=== PATIENT | female | born 1985 | race Caucasian/White ===

== ENCOUNTER 2024-12-07 08:40 | Emergency (ER) | payer OTHER, BC, SELFPAY ==
--- OUTSIDE RECORDS SUMMARY | 2024-11-30 08:40 | XMS_ITS | Encounter Summary ---
Author Organization [facility] Address [facility] [place] [address] Care Team Providers Care Sheriffs Detective Name Role Phone Rose Mary Lane COMPUTER SECURITY MANAGER Unavailable [phone] Carolin Roca MD Primary Care Provider [phone] Source Comments In the event this information is protected by the Federal Confidentiality of Alcohol and Drug AbusePatient Records regulations: The Federal rules restrict any use of the information to criminally investigate or prosecute any alcohol or drug abuse patient.[facility] Reason for Visit * Outpatient Procedure (Routine) - ClosedSpecialtyDiagnoses / ProceduresReferred By ContactReferred To [facility] Diagnoses BRCA1 gene mutation positive in female Ovarian cyst, right Preop examination Procedures ECG COMPLETE ECG ROUTINE ECG W/LEAST 12 LDS W/I&R Tracey Hernandez APRN.CODING ANALYST [address] [place] [address] Phone: tel: fax: [facility] [address] [place] [address] Referral IDStatusReasonStart DateExpiration DateVisits RequestedVisits [id number] Auto-Generated Referral [id number] Encounter Details DateTypeDepartmentCare Team (Latest Contact Info)Zyjyjphmktx66/17/2025 8:40 AM EDTPAT Pre Anesthesia [address] [place], [place] [id number] Preop examination (Primary Dx); BRCA1 gene mutation positive in female; Ovarian cyst, right; Mild intermittent asthma without complication (HCC); Gastroesophageal reflux disease, unspecified whether esophagitis present; Obesity, Class I, BMI 30-34.9; PONV (postoperative nausea and vomiting) Social History Tobacco UseTypesPacks/DayYears UsedDateSmoking Tobacco: NeverSmokeless Tobacco: Never Tobacco Cessation:Counseling Given: Not Answered Alcohol UseStandard Drinks/WeekCommentsYes0 (1 standard drink = 0.6 oz pure alcohol)rarePHQ-2AnswerDate RecordedPHQ-2 gurud562rea Deprivation Index AnswerDate RecordedNational Score (1-100), lower number is lower risk76 07/06/2022State Score (1-10), lower number is lower qthn0393Data from: https://www.neighborhoodatlas.[facility]/. Last address used for wawlmjtzjzk[address]07/06/[birth year]22CommentsNoSex and Gender InformationValueDate RecordedSex Assigned at MhugiAgkcoh81/12/2025 12:01 PM EDT Legal StyTbfprd42/19/2015 10:08 AM ESTGender DfnbwknkWtfggg01/12/2025 12:01 PM EDTSexual ExlaoxswczzTmtgmisd37/10/2020 2:09 PM ESTdocumented as of this encounter Last Filed Vital Signs Vital SignReadingTime TakenCommentsBlood Niiljchk011/8211/30/2024 8:33 AM EDT Aoebe520911/30/2024 8:33 AM QPRKaksslwmysl29.6 ??C (97.9 ??F)11/30/2024 8:33 AM EDTRespiratory Rate--Oxygen Mqlqzrdlwp62%11/30/2024 8:33 AM EDTInhaled Oxygen Concentration--Gaquzx84 kg (216 lb 0.8 oz)11/30/2024 8:33 AM ZYPYawlia350.7 cm (5' 6.42 )11/30/2024 8:33 AM EDTBody Mass Index34.431 8:33 AM EDT documented in this encounter Functional Status * Are you deaf or do you have serious difficulty hearing?AnswerDate of KxoopzbeifWndzavRh93/10/2015 10:15 AM Lia Lang RN * Are you blind or do you have serious difficulty seeing, even when wearing glasses?AnswerDate of QmsyenynzcPmqcrkHr80/10/2015 10:15 AM Lia Lang RN * Do you have serious difficulty walking or climbing stairs?AnswerDate of XqenaskqamNfpoizJh86/10/2015 10:15 AM Lia Lang RN * Do you have difficulty dressing or bathing?AnswerDate of AssessmentAuthorNo 11/23/2014 10:15 AM Lia Lang RN * Because of a physical, mental, or emotional condition, do you have difficulty doing errands alone such as visiting a doctor's office or shopping?AnswerDate of LewwhgegqpVeyzzuVk25/10/2015 10:15 AM iLa Lang RN documented as of this encounter Mental Status * Because of a physical, mental, or emotional condition, do you have serious difficulty concentrating, remembering, or making decisions?AnswerEntry Date XoraxnPs73/10/2015 10:15 AM Lia Lang RN documented in this encounter Patient Instructions * Patient Instructions* Liane Neri PA-C - 11/28/2024 9:32 AM EDT [facility] PATIENT PREOPERATIVE INSTRUCTIONS Gina Lala MD has scheduled you for your procedure at this surgery center: [facility]: [phone] --[phone] [place] [address]. Please check in on the1st floor at registration desk 6. Please read below carefully for your personalized instructions. Arrival Time for Surgery: - The Surgery Center or hospital where you are having surgery will call the afternoon before surgery (or Tuesday for Tuesday surgery) with a scheduled arrival time. - If you have not heard by 4 pm, please contact the surgery center above. Please be aware that emergency situations arise, which may delay or change your surgical time. If this happens, we will notify you as soon as possible and regret any inconvenience. Dietary Restrictions: - No solid food after midnight. - You may have 12 ounces of clear liquids (water, clear juices such as apple juice or gatorade, carbonated beverages, clear tea, black coffee, jello) until 2 hours before scheduled arrival at facility. Medications: Unless instructed differently below, stay on all of your medications until your surgery. Approved medications to take the morning of surgery with a sip of water: bupropion (Wellbutrin), omeprazole (Prilosec), sertraline (Zoloft) Use your inhalers as prescribed If you start any new medications after today's visit, please contact the surgeon's office. If you are currently using a vfyq-dkt-bynq injectable or oral medication for diabetes or weight loss such as Dulaglutide (Trulicity), Exenatide (Byetta, Bydureon), Liraglutide (Victoza, Saxenda), Semaglutide (Ozempic, Wegovy, Rybelsus), or Tirzepatide (Mounjaro), the medicine should be stopped at least 7 days before surgery. These medicines can cause food to remain in your stomach for a very longtime and increase the risks from surgery and anesthesia. Not stopping the medication for a long enough time may result in your surgery being rescheduled. Blood Thinning Medications: - Stop NSAIDS (Ibuprofen, Advil, Aleve, Motrin, Celebrex, Mobic, etc.) 7 days before surgery, as directed by your surgeon. - Stop Aspirin 7 days before surgery, as directed by your surgeon. - Stop ALL herbals and dietary supplements 7 days before surgery. - You may take Tylenol (Acetaminophen) or any of your pain medications that do not contain aspirin or NSAIDS as needed. Important Reminders: - Candy, mints, and tobacco products are NOT permitted the morning of surgery. - Hearing aids and glasses may be worn the morning of surgery. - You may wear partials and dentures morning of surgery, but you may be asked to remove them prior to your procedure. - NO jewelry, body piercings, makeup, hairpins or contacts are to be worn the day of surgery. If you develop symptoms such as a fever, cold, or flu, or have other changes to your health within TWO DAYS of scheduled surgery or the morning of surgery, please contact the surgery center above. Personal Belongings: -Please have photo ID and insurance cards. -If you do not have a copy of advance directives on file with us, please bring a copy with you on the day of surgery. - Leave ALL valuables and money at home or with family members. For Outpatient Procedures: - YOU MUST HAVE A RESPONSIBLE JEWEL CUPPING MACHINE OPERATOR TAKE YOU HOME. A WOMEN'S HEALTH CARE NURSE PRACTITIONER OR MOLECULAR GENETICIST CANNOT BE MADE A RESPONSIBLE JEWEL CUPPING MACHINE OPERATOR. - We recommend that a responsible person stays with you overnight to take care of you. - You cannot stay in a hotel alone after outpatient surgery. You will not be permitted to have yoursurgery, if you do not have someone to take care of you. If you already have an Advance Directive, please fax a copy to [phone] or email to for it to be added to your chart. If you do not have an Advance Directive, you can find the appropriate form and more information at [email or web address]. We recommend that youcomplete the Advance Directive form found on the website and bring it with you the day of your surgery. It can be witnessed and scanned into your chart that day. Liane Neri PA-C documented in this encounter H&P Notes * Liane Neri PA-C - 11/30/2024 8:40 AM EDT Images from the original note were not included. [facility] HISTORY AND PHYSICAL EXAMINATION SERVICE DATE: 11/30/2024 SERVICE TIME: 8:38 AM PRIMARY CARE PHYSICIAN: Carolin Roca MD Assessment 1. Preop examination (Z01.818) 2. BRCA1 gene mutation positive in female (Z15.01) 3. Ovarian cyst, right (N83.201) surgery 10/22/25 4. Mild intermittent asthma without complication (HCC) (J45.20) - Mild, intermittent asthma; inhaler used as needed, most recently one month ago. - triggered by allergies and illnesses - No current wheezing, cough, or shortness of breath. - Advised to bring inhaler on day of surgery. 5. Gastroesophageal reflux disease, unspecified whether esophagitis present (K21.9) - GERD managed with omeprazole. 6. Obesity, Class I, BMI 30-34.9 (E66.811) - patient remains physically active with walking and Jazzercise. Estimated body mass index is 34.43 kg/m?? as calculated from the following: Height as of this encounter: 168.7 cm (5' 6.42 ). Weight as of this encounter: 98 kg (216 lb 0.8 oz). ANESTHESIA FINDINGS: Intubation History: No history of difficult intubation Significant Anesthesia Considerations: potential postop nausea/vomiting Airway History: No history of difficult airway Yang Activity Status Index: METS: Walk indoors, such as around the house (1.75 METs) Do light work around the house, such as dusting or washing dishes (2.70 METs) Take care of self; that is eating, dressing, bathing, using the toilet (2.75 METs) Walk a block or two on level ground (2.75 METs) Do moderate work around the house, such as vacuuming, sweeping floors, or carrying in groceries (3.50 METs) Do yardwork, such as raking leaves, weeding, or pushing a power mower (4.50 METs) Climb a flight of stairs or walk up a hill (5.50 METs) Do heavy work around the house, such as scrubbing floors, lifting or moving heavy furniture (8.00 METs) DASI Score: 31.45 (Jazzercise once a week Walking most days ) Patient denies any chest pain or undue shortness of breath with the above physical activity. Clinical Frailty Scale: 2. Well STOP-Bang Score: Denies snoring loudly Denies feeling tired, fatigued, or sleepy during the daytime Has not been observed to stop breathing or choking/gasping during sleep Denies having high blood pressure BMI less than or equal to 35 kg/m^2 Patient 50 years old or younger Does not have a large neck Non-male patient STOP-Bang Score: 0 I - PHYSICAL EVALUATION AIRWAY Patient intubated: No. Tracheostomy tube not present Mallampati: II. TM distance: >3 FB. Neck ROM: full ROM without neurological symptoms. Mouth opening: >3 FB. Short neck: no. Thick neck: no Lip Bite Test: I Microretrognathia/Micronagthia/Recessed Chin: No DENTAL Normal dental observations. Dental findings: teeth intact. II - ANESTHESIA PLAN Informed Consent Prepared for Surgery: optimally prepared for surgery. CONSULTS: Patient does not require consults for optimization at this time. Planned Anesthetic: anesthesia choice The Following Tests/Procedures Have Been Initiated: Orders Placed This Encounter CBC Standing Status: Future Number of Occurrences: 1 Expected Date: 11/30/2024 Expiration Date: 03/01/2025 BMP Standing Status: Future Number of Occurrences: 1 Expected Date: 11/30/2024 Expiration Date: 03/01/2025 polyethylene glycol 3350 (MIRALAX PO) Sig: Take by mouth. REASON FOR VISIT: Andria Dangelo is a 39 year old female who is scheduled for Bilateral - LAPAROSCOPIC HYSTERECTOMY TOTAL FOR UTERUS 250 G OR LESS W/REMOVAL TUBE(S) AND/OR OVARY(S) at the request of Dr. Gina Lala for consultation. My final recommendation will be communicated back to the requesting physician by way of shared medical record or letter. CHIEF COMPLAINT: pelvic pain HPI: Andria is a 39-year-old female with mild intermittent asthma, depression, and anxiety, presenting for pre-anesthesia evaluation prior to prophylactic total hysterectomy. Andria reports a right-sided ovarian cyst present for approximately 6 months, associated with intermittent right-sided pelvic pain that occasionally radiates to her back. She describes the pain as bothersome but not severe. She continues to have regular menses without abnormal bleeding. Patient has been recommended for above surgery. Subjective ACTIVE PROBLEM LIST Family History of Breast Cancer Brca1 Genetic Carrier S/P Bilateral Mastectomy Mild Intermittent Asthma Without Complication (Hcc) Obesity, Class I, Bmi 30-34.9 Gastroesophageal Reflux Disease Covid Immunization Dates Current Care Gaps Covid-19 Vaccine ( season) Overdue since 10/15/2024 01/19/2021 Imm Admin: COVID-19 original vaccine, full dose, monovalent (MODERNA) 03/26/2020 Imm Admin: COVID-19 original vaccine, full dose, monovalent (MODERNA) 02/27/2020 Imm Admin: COVID-19 original vaccine, full dose, monovalent (MODERNA) REVIEW OF SYSTEMS: PAIN ASSESSMENT: GENERAL: No weight loss, malaise, or fevers. HEENT: Negative for frequent or significant headaches; no changes in vision or hearing; no nosebleeds or other nasal problems. NECK: Positive for a thyroid nodule; denies goiter, pain, or significant neck swelling. RESPIRATORY: Negative for cough, dyspnea, or shortness of breath. CARDIOVASCULAR: Negative for chest pain, leg swelling, CHF, or palpitations. GI: Positive for silent reflux; denies nausea, vomiting, diarrhea, heartburn, abdominal pain, bloodin stool, or black stool. GENITOURINARY: Positive for right-sided pelvic pain; denies dysuria, frequency, or incontinence. MUSCULOSKELETAL: Positive for mild, intermittent back pain; denies joint pain or swelling, or muscle pain. SKIN: Negative for lesions, rash, and itching. PSYCH: Negative for anxiety or depression. HEMATOLOGY/LYMPHOLOGY: No bleeding concerns. NEURO: No history of headaches, syncope, paralysis, seizures, or tremors. ENDOCRINE: No history of polydipsia, increased thirst, or other endocrine symptoms. PAST MEDICAL HISTORY Diagnosis Date Asthma (HCC) PFTs proven in September 2014. BRCA1 positive 2013 Breast lump 2015 Bilateral and pain. Raynaud's syndrome PAST SURGICAL HISTORY Procedure Laterality Date BREAST RECONSTRUC W TISS EXPANDR Bilateral 11/22/14 Bilat MASTECTOMY, SIMPLE, COMPLETE Bilateral 11/22/14 Bilat Prophyl NSM & Pauline FAMILY HISTORY Problem Relation Age of Onset Breast Cancer Mother 54 Alive other (Melanoma) Mother 30 Breast Cancer Other 45 Alive; 2nd cousin, maternal Breast Cancer Maternal Aunt 50 ; Great Aunt Ovarian cancer Maternal Aunt 70 ; maternal great aunt Stroke Maternal Grandfather other (TIA) Maternal Grandfather 70 Alive Clotting Disorder Father 60 other (Factor 5) Father 60 Alive Colon Cancer Maternal Grandmother 50 ; Great Grandmother other (Lung Cancer) Maternal Grandmother 77 Breast Cancer Other 57 Alive, 2nd cousin, maternal SOCIAL HISTORY[1] MEDICATIONS: Prior to Admission medications as of 11/30/24 0838 Medication Sig Last Dose Taking polyethylene glycol 3350 (MIRALAX PO) Take by mouth. Yes fluticasone (FLONASE ALLERGY RELIEF) 50 mcg/actuation nasal spray Use 2 sprays in each nostril oncedaily. Yes buPROPion SR (WELLBUTRIN SR) 100 mg 12 hr tablet Take 50 mg by mouth two times a day. Yes montelukast (SINGULAIR) 10 mg tablet Take 10 mg by mouth daily at bedtime. Yes norgestimate-ethinyl estradiol 0.18/0.215/0.25 mg-0.035mg (28) tablet Take 1 tablet by mouth once daily. Yes omeprazole (PRILOSEC) 20 mg capsule Take 20 mg by mouth. Yes sertraline (ZOLOFT) 50 mg tablet Take 50 mg by mouth every morning. Yes ALBUTEROL INHALATION Inhale 1 Puff as instructed as needed. Yes estradiol (VIVELLE-DOT) 0.1 mg/24 hr patch Apply 1 patch as directed two times a week. No medication comments found. CURRENT ALLERGIES: ALLERGIES Allergen Reactions Kiwi Diarrhea, GI Upset, Itching, Swelling, Vomiting Milk GI Upset, Intolerance Objective PHYSICAL EXAM: VITALS: BP 119/82 Pulse 65 Temp (Src) 97.9 (Temporal) Ht 5' 6.417 (1.69m) Wt 216 lb 0.8 oz (98.0kg) SpO2 98% LMP 11/06/2024 BMI 34.43 kg/(m^2). General: Alert and oriented, No acute distress, Obese Skin: Normal color, no rash, no lesions. HEENT: EOM, pupils equal, round and reactive. Cardiovascular: Normal S1 & S2, no rubs, murmurs or gallops. No JVD. Pulse regular. Lungs: Normal breath sounds, no wheezes or crackles. Abdomen: Soft, non-tender, no rigidity., Positive bowel sounds Extremities: No deformity, no edema or tenderness, no joint swelling or clubbing. Neurological: Normal cognition and motor skills. Pulses: Carotid and radial pulses normal +2. Diagnostic tests reviewed for today's visit: Lab Value Units Date High Low HB 12.6 g/dL 11/30/2024 15.5 11.5 HCT 38.1 % 11/30/2024 46.0 36.0 WBC 9.13 k/uL 11/30/2024 11.00 3.70 PLT 307 k/uL 11/30/2024 400 150 NA 136 mmol/L 11/30/2024 144 136 K 4.7 mmol/L 11/30/2024 5.1 3.7 GLUC 96 mg/dL 11/30/2024 99 74 BUN 7 mg/dL 11/30/2024 21 7 CREAT 0.86 mg/dL 11/30/2024 0.96 0.58 PTSEC No results within date range. INR No results within date range. APTT No results within date range. ALT No results within date range. AST No results within date range. TBILI No results within date range. TSH No results within date range. Lab Value Units Date High Low HCGQT No results within date range. UHCG No results within date range. HCG, BODY* No results within date range. Lab Value Units Date High Low ABORHD No results within date range. ABSCREEN No results within date range. No results found for: HBA1C Most recent EK11/30/2024 preliminary Normal sinus rhythm Normal ecg Instructions Given to Patient: Instructions located in the after visit summary. Patient given verbal and written preop instructions and voices comprehension and compliance. Consent Recording using EMK[employer] software for draft documentation of the visit was discussed with the patient/authorized apprenticeship representative; all questions welcomed and answered. Patient/authorized apprenticeship representative agreed to proceed SIGNATURE: Liane Neri PA-C PATIENT NAME: Andria Dangelo DATE: 11/30/2024 TIME: 9:03 AM PAGER/CONTACT #: [1] Social History Tobacco Use Smoking status: Never Smokeless tobacco: Never Substance Use Topics Alcohol use: Yes Comment: rare Drug use: No documented in this encounter Plan of Treatment DateTypeDepartmentCare Team (Latest Contact Info)Wamtiyzxkcf86/07/2025 8:15 AM ESTVisit (SP) Office Gynecology [address] [place] [address] Shelby Crouch L, COMPUTER SECURITY MANAGER.CODING ANALYST [address] [place] [address] POST OP OK'D WITH BG01/15/2025 3:00 PM ESTVisit (SP) Office Gynecology [address] [place] [address] Shelby Crouch, COMPUTER SECURITY MANAGER.CODING ANALYST [address] [place] [address] POST OP01/17/2025 10:30 AM ESTDistance Health Gynecology [address] [address] Parrish Chan MD [address] [place] [address] MENOPAUSE SMA01/18/2025 11:00 AM ESTOffice Visit [facility] [address] [place] [address] Carly Sierra MD [address] [place] [address] annual exam06/03/2025 3:00 PM EDTDisd[facility] End[facility]ology [place] [address] [place] [address] [place] [address] [place] [address] Ongoing learning about symptoms and fwparsscpf41/21/2026 8:30 AM EDTDisdignity health [facility]ce [facility] Gynecology [address] [address] Parrish Chan MD [address] [address] FOLLOW UPdocumented as of this encounter Procedures Procedure NamePriorityDate/TimeAssociated DiagnosisCommentsECG COMPLETERoutine 11/30/2024 8:42 AM EDT BRCA1 gene mutation positive in female Ovarian cyst, right Preop examination documented in this encounter Results * BASIC METABOLIC PANEL (11/30/2024 9:23 AM EDT)ComponentValueRef RangeTest MethodAnalysis TimePerformed AtPathologist IwfvoiowcKegzfgi0697 - 99 mg/dL 11/30/2024 11:15 AM [facility] LABORATORYComment: The [place] Diabetes Association (ADA) provides guidance for cutoff values for fasting glucose andrandom glucose. The ADA defines fasting as no caloric intake for at least 8 hours. Fasting plasma glucose results between 100 to 125 mg/dL indicate increased risk for diabetes (prediabetes). Fasting plasma glucose results greater than or equal to 126 mg/dL meet the criteria for diagnosis of diabetes. In the absence of unequivocal hyperglycemia, results should be confirmed by repeat testing. In a patient with classic symptoms of hyperglycemia or hyperglycemic crisis, random plasma glucose results greater than or equal to 200 mg/dL meet the criteria for diagnosis of diabetes. Reference: Standards of Medical Care in Diabetes 2016, [place] Diabetes Association. Diabetes Care. 2016.39(Suppl 1). BUN77 - 21 mg/dL11/30/2024 11:15 AM [facility] LABORATORYCreatinine0.86 0.58 - 0.96 mg/dL11/30/2024 11:15 AM [facility] ZYIKFWQMAXCriane124757 - 144 mmol/L1 11:15 AM [facility] LABORATORYPotassium4.73.7 - 5.1 mmol/L1 11:15 AM [facility] HWJBJHXRTWSepublqm01967 - 107 mmol/L 11/30/2024 11:15 AM [facility] RKLAFYHIDHPS84415 - 30 mmol/L1 11:15 AM [facility] LABORATORYAnion Ggt900 - 15 mmol/L1 11:15 AM [facility] LABORATORYCalcium, Total9.78.5 - 10.2 mg/dL11/30/2024 11:15 AM [facility] LABORATORYEstimated Glomerular Filtration Rate88>=60 mL/min/1.73m 11/30/2024 11:15 AM [facility] LABORATORYComment:Estimated Glomerular Filtration Rate (eGFR) is calculated using the 2020 CKD-EPI creatinine equation. This equation utilizes serum creatinine, sex, and age as parameters. The creatinine assay has traceable calibration to isotope dilution-mass spectrometry. Refer to KDIGO guidelines for clinical interpretation. In patients with unstable renal function, e.g. those with acute kidney injury, the eGFRmay not accurately reflect actual GFR.Specimen (Source)Anatomical Location / LateralityCollection Method / VolumeCollection TimeReceived TimeBloodBLOOD SPECIMEN / UnknownVenipuncture / Fgujvgf0011/30/2024 9:23 AM EDT1 9:24 AM EDT Narrative Authorizing ProviderResult TypeResult StatusRachel Thomasandra PA-CLABORATORYFinal ResultPerforming OrganizationAddressCity/State/ZIP CodePhone Number [facility] [address] [facility] [place] [place] [address], * COMPLETE BLOOD COUNT (11/30/2024 9:23 AM EDT)ComponentValueRef RangeTest MethodAnalysis TimePerformed AtPathologist SignatureWBC9.133.70 - 11.00 k/uL 11/30/2024 10:00 AM [facility] LABORATORYRBC4.073.90 - 5.20 m/uL 11/30/2024 10:00 AM [facility] QEBZRKWFSNTbpuilzvrr24.611.5 - 15.5 g/dL 11/30/2024 10:00 AM [facility] PJAHIKUGYPRdrtlqbngl00.136.0 - 46.0 % 11/30/2024 10:00 AM [facility] ZYOYJTUKKIPQN28.680.0 - 100.0 fL 11/30/2024 10:00 AM [facility] CQRPQVUQKCBLZ97.026.0 - 34.0 pg11/30/2024 10:00 AM [facility] OPMLJRBHXBKESR95.130.5 - 36.0 g/dL11/30/2024 10:00 AM [facility] LABORATORYRDW-CV13.211.5 - 15.0 %11/30/2024 10:00 AM EDT [facility] LABORATORYPlatelet Rhptz693551 - 400 k/uL11/30/2024 10:00 AM EDT [facility] QVWQSBTCQIXUQ91.69.0 - 12.7 fL11/30/2024 10:00 AM [facility] LABORATORYAbsolute nRBC<0.01<0.01 k/uL11/30/2024 10:00 AM [facility] LABORATORYSpecimen (Source)Anatomical Location / LateralityCollection Method / VolumeCollection TimeReceived TimeBloodBLOOD SPECIMEN / Unknown Venipuncture / Ddvcjdd1711/30/2024 9:23 AM EDT1 9:24 AM EDT Narrative Authorizing ProviderResult TypeResult StatusRachel Halle HOUSER-CLABORATORYFinal ResultPerforming OrganizationAddressCity/State/ZIP CodePhone Number [facility] [address] [facility] [place] [address], [place] * ECG COMPLETE (11/30/2024 8:42 AM EDT)ComponentValueRef RangeTest Method Analysis TimePerformed AtPathologist SignatureVentricular Uqdo22ENVIVRF CARDIOLOGYAtrial Wlix80ACMPLJC CARDIOLOGYP-R Vrczkuvi092uiKTJB CARDIOLOGYQRS Bcprksme25eoZJDH CARDIOLOGYQT Ciosrdgq998pmXARJ CARDIOLOGYQTC Calculation (Bazett)441msAVON CARDIOLOGYCalculated P Jvsv48abuhmpnWOXH CARDIOLOGY Calculated R Aeao67ngrmzshUDLA CARDIOLOGYCalculated T Szmx00pbadtcyWIBP CARDIOLOGYSpecimen (Source)Anatomical Location / LateralityCollection Method / VolumeCollection TimeReceived Time11/30/2024 8:42 AM EDT Impressions [facility] - 12/01/2024 11:31 AM EDT Normal sinus rhythm Normal ECG No previous ECGs available Confirmed by MOOK ESTEVEZ M.D. ([place]) on 12/01/2024 11:31:16 AM Narrative [facility] - 12/01/2024 11:31 AM EDT NAME : ANDRIA DANGELO PID : [id number] : 1985 Gender : Female Race : ORD : [id number] Procedure Date : Nov 30 2024 08:42:10 Edit Date : Dec 01 2024 11:31:18 Diagnosis: Normal sinus rhythm Normal ECG No previous ECGs available Confirmed by MOOK ESTEVEZ M.D. ([place]) on 12/01/2024 11:31:16 AM Test Reason : HCS Location : 301 : PACC ?? Overread By : MOOK ESTEVEZ M.D. Edited By : MOOK ESTEVEZ M.D. Referred By : ALHILLI,GINA Acquired by : wv, Authorizing ProviderResult TypeResult StatusMarjose juan Hernandez APRN.CNPEKGFinal ResultPerforming OrganizationAddressCity/State/ZIP CodePhone Number [facility] [address] [facility] [address], documented in this encounter Visit Diagnoses Diagnosis Preop examination- Primary Preoperative examination, unspecified BRCA1 gene mutation positive in female Ovarian cyst, right Other and unspecified ovarian cyst Mild intermittent asthma without complication (HCC) Unspecified asthma Gastroesophageal reflux disease, unspecified whether esophagitis present Obesity, Class I, BMI 30-34.9 Obesity, unspecified PONV (postoperative nausea and vomiting) Nausea with vomiting documented in this encounter Care Teams Team MemberRelationshipSpecialtyStart DateEnd Date Carolin Roca MD [address] [place] [address] PCP - GeneralFamily Ymbleubx54/9/[address] APRN [address] [place], [place] [id number] ReferringFamily Qgqboxci63/9/24documented as of this encounter
--- OUTSIDE RECORDS SUMMARY | 2024-12-05 08:10 | XMS_ITS | Encounter Summary ---
Author Organization [facility] Address [facility] [place] [address] Care Team Providers Care Security Nurse Name Role Phone Rose Mary Lane Jeffery INTERNET SYSTEMS ADMINISTRATOR Unavailable [phone] Carolin Roca MD Primary Care Provider [phone] Source Comments In the event this information is protected by the Federal Confidentiality of Alcohol and Drug AbusePatient Records regulations: The Federal rules restrict any use of the information to criminally investigate or prosecute any alcohol or drug abuse patient.[facility] Reason for Visit * Auth/Cert (Routine)SpecialtyDiagnoses / ProceduresReferred By ContactReferred To ContactADMITTING Diagnoses BRCA1 gene mutation positive in female Ovarian cyst, right Preop examination BRCA1 gene mutation positive in female [Z15.01, Z15.02, Z15.09] Ovarian cyst, right [N83.201] Preop examination [Z01.818] Procedures LAPS TOTAL HYSTERECT 250 GM/< W/RMVL TUBE/OVARY LAPAROSCOPIC HYSTERECTOMY TOTAL FOR UTERUS 250 G OR LESS W/REMOVAL TUBE(S) AND/OR OVARY(S) Admitting [facility] [place] [address] Referral IDStatusReasonStart DateExpiration DateVisits RequestedVisits [id number] Encounter Details DateTypeDepartmentCare Team (Latest Contact Info)Awgaoncgvkn08/22/2025 8:10 AM EDT - 12/05/2024 5:06 PM EDTHospital Encounter [facility] [address] [place] [address] [place] [address] [place] [address] BRCA1 gene mutation positive in female [Z15.01, Z15.02, Z15.09], Ovarian cyst, right [N83.201], Preop examination [Z01.818] Discharge Disposition: Home Social History Tobacco UseTypesPacks/DayYears UsedDateSmoking Tobacco: NeverSmokeless Tobacco: NeverAlcohol UseStandard Drinks/WeekCommentsYes0 (1 standard drink = 0.6 oz pure alcohol)rarePHQ-2AnswerDate RecordedPHQ-2 [id number] Deprivation IndexAnswerDate RecordedNational Score (1-100), lower number is lower risk76 07/06/2022State Score (1-10), lower number is lower [id number] from: https://www.neighborhoodatlas.[facility].edu/. Last address used for ojibfnrqiqp[address]CommentsNoSex and Gender InformationValueDate RecordedSex Assigned at CevypJfmcjx35/12/2025 12:01 PM EDT Legal RowPsnvxj08/19/2015 10:08 AM ESTGender KsvxwqbsLhwyxa30/12/2025 12:01 PM EDTSexual OjcdendkwcvTuaqwzmh10/10/2020 2:09 PM ESTdocumented as of this encounter Last Filed Vital Signs Vital SignReadingTime TakenCommentsBlood Comlstcx981/8612/05/2024 4:15 PM EDT Ltrqm804912/05/2024 4:15 PM RIOIdpxfrwxlxt62.2 ??C (97.2 ??F)12/05/2024 4:15 PM EDTRespiratory Vcyh8540 4:15 PM EDTOxygen Tzotqcykvz71%12/05/2024 4:15 PM EDTInhaled Oxygen Concentration--Weight--Height--Body Mass Index--documented in this encounter Functional Status * Are you deaf or do you have serious difficulty hearing?AnswerDate of YvmxsurjjjCzgfclNq12/10/2015 10:15 AM Lia Lang RN * Are you blind or do you have serious difficulty seeing, even when wearing glasses?AnswerDate of CfveyqukvrUregpmLj39/10/2015 10:15 AM Lia Lang RN * Do you have serious difficulty walking or climbing stairs?AnswerDate of DplprkapiwPummqtWc62/10/2015 10:15 AM Lia Lang RN * Do you have difficulty dressing or bathing?AnswerDate of AssessmentAuthorNo 11/23/2014 10:15 AM Lia Lang RN * Because of a physical, mental, or emotional condition, do you have difficulty doing errands alone such as visiting a doctor's office or shopping?AnswerDate of YgioveeyakMvopqiYc74/10/2015 10:15 AM Lia Lang RN documented as of this encounter Mental Status * Because of a physical, mental, or emotional condition, do you have serious difficulty concentrating, remembering, or making decisions?AnswerEntry Date GvovpaJl18/10/2015 10:15 AM Lia Lang RN documented in this encounter Discharge Instructions * Discharge Instr - Other Orders* Gina Cisneros MD - 12/05/2024 2:08 PM EDT POSTOP: LAPAROSCOPIC SURGERY WHAT TO EXPECT AT HOME Recovery from surgery is generally 2-6 weeks, but sometimes longer for more strenuous activity. It is normal to be very tired during this time. It is normal to have some drainage or a small amount of vaginal bleeding after surgery which may last up to 6 weeks. You will most likely experience gas pain, abdominal swelling, or shoulder pain for 24-72 hours after surgery. This is from the carbon dioxide gas put into your abdomen to better visualize your organs. A warm shower, heating pad, and/or walking may help. You will have 1-5 small incisions on your abdomen. There will be dissolvable stitches under your skin that do not need to be removed. You will also have surgical glue or steri-strips (paper tape) on the incisions. These may be removed when they start to fall off on their own, or in 7-10 days. ACTIVITY No heavy lifting/pushing/pulling for 4-6 weeks. Do not lift anything more than 10-15 lbs (such as laundry, groceries, children, pets), vacuum, push heavy doors or grocery carts, etc. You may climb stairs as tolerated. Do not put anything in the vagina for 6 weeks after surgery unless otherwise instructed by your doctor (including tampons, douching, sexual intercourse, etc). No driving for about 2-3 weeks after surgery, while you are taking narcotic pain medication, or until you feel that you are ready. Avoid sitting or lying in bed for more than 2 hours at a time while you are awake to reduce your risk of blood clots. Return to work when directed by your surgeon. Please contact your surgeon???s office if any [facility] paperwork is needed. WOUND CARE You will have 1-5 small incisions on your abdomen. If you have a dressing (big, white, square band-aid), please remove it 24 hour after your surgery. You may have surgical glue or steri-strips on theincisions and these may be removed once they start to fall off. Shower daily after surgery. Wash your incision with antibacterial soap (such as Dial). Pat your incision dry with a clean towel. No tub baths until wound is completely healed. Wash your hands frequently, especially before touching your incision, changing any dressings, afterusing the restroom, and before eating. PAIN MANAGEMENT You will be given prescriptions for a variety of pain medications (opioid and non-opioid) before you leave the hospital. Surgery will cause pain and everyone has a different pain tolerance. It is safer to find the right combination and amount of medicine to manage your pain. We recommend that you take the non-opioid medication (acetaminophen and ibuprofen) on a regular schedule after surgery. You can take these medications on an alternating schedule so that you are taking one or the other every 3-4 hours. The maximum total daily dose of acetaminophen is 4,000mg and the maximum totaldaily dose of ibuprofen is 2,400mg. Take the opioid prescription ONLY when your pain is severe and never take more pills or more frequent doses than prescribed. Opioids (narcotics) can cause serious side effects. The risks increase the longer they are used. Taking opioids may cause: constipation, drowsiness, itching, nausea/vomiting. More serious side effects of opioids may include: addiction or dependence, life threatening overdose, or dizziness leading to falls/injury. Keep your pain medication locked in a safe place. Never share your pain medication with others. If you have any remaining opioid pills after you recover from surgery, please bring them to a medication disposal station (located in many of the [facility] pharmacies). Do not flush them down the toilet. Constipation is a common problem after surgery. You should take a stool softener (i.e. colace) twice a day, especially if you are taking opioids. If a stool softener alone is not helping to manage your constipation, you can also take Miralax and/or milk of magnesia as needed. WHEN TO CALL THE DOCTOR Call your doctor if you have any of the following symptoms: Fever (>100.4 F or 38.0 C) or chills. Incision problems such as redness, warmth, swelling, or foul smelling drainage. Severe nausea or persistent vomiting. Bright red vaginal bleeding (soaking >1 pad/hour) or foul smelling vaginal drainage. Severe pain not relieved with pain medication. Pain and swelling in your legs, especially if it is only on one side and not the other. Pain with urination, cloudy urine, or foul smelling urine. Or if you have any other problems or questions. CALL 911 or go to the ED if you have any shortness of breath, difficulty breathing, or chest pain. documented in this encounter Medications at Time of Discharge MedicationSigDispense QuantityRefillsLast FilledStart DateEnd Date oxyCODONE IR (ROXICODONE) 5 mg immediate release tablet Indications:BRCA1 gene mutation positive in femaleTake 1 tablet by mouth every 8 hours as needed for pain for up to 3 days. 9 tablet 12/05/2024 4:02 PM EDT1 polyethylene glycol 3350 (MIRALAX PO) Take by mouth. estradiol (VIVELLE-DOT) 0.1 mg/24 hr patch Apply 1 patch as directed two times a week. 24 patch fluticasone (FLONASE ALLERGY RELIEF) 50 mcg/actuation nasal spray Use 2 sprays in each nostril once daily. buPROPion SR (WELLBUTRIN SR) 100 mg 12 hr tablet Take 50 mg by mouth two times a day. montelukast (SINGULAIR) 10 mg tablet Take 10 mg by mouth daily at bedtime. norgestimate-ethinyl estradiol 0.18/0.215/0.25 mg-0.035mg (28) tablet Indications:Encounter for initial prescription of contraceptive pillsTake 1 tablet by mouth once daily. 84 tablet omeprazole (PRILOSEC) 20 mg capsule Take 20 mg by mouth.11/21/2023 sertraline (ZOLOFT) 50 mg tablet Take 50 mg by mouth every morning. ALBUTEROL INHALATION Inhale 1 Puff as instructed as needed.documented as of this encounter OR Notes * Operative Report - Gina Cisneros MD - 12/05/2024 11:14 AM EDT OPERATIVE/PROCEDURE REPORT LOG ID: [id number] SURGERY/PROCEDURE DATE: 12/05/2024 INCISION/PROCEDURE START TIME: 12:01 PM INCISION CLOSE/PROCEDURE END TIME: 1:45 PM SURGEON(S)/PROCEDURALIST(S) AND COMMUNICATIONS CONSULTANT(S): Surgeons and Role: * Gina Cisneros MD - Primary Nurse Practitioner: Renée Mohr APRN.CHILD CARE CENTRE DIRECTOR Physician Beveling Machine Operator: Isha Martinez PA-C SURGERY/PROCEDURE(S): Laparoscopic assisted hysterectomy Bilateral salpingo-oophorectomy Cystoscopy ANESTHESIA: Choice - Anesthesia Consult SURGERY/PROCEDURE DETAILS: Indication: Patient is a pleasant 39 year old P2 with a known pathogenic variant in BRCA1. She desired risk reducing surgery after completion of childbearing. She understood the risks, benefits and alternatives of the procedure and a greed to proceed. Findings: Normal appearing uterus and ovaries. No peritoneal disease noted Operative details: The patient was taken to the operating room. After induction of general anesthesia, she was preppedand draped in the dorsal lithotomy position and her legs were placed in yellow-fin stirrups. A bob catheter was then placed and a procedural pause was taken. We turned out attention to the abdomen.An supraumbilical incision was made and the subcutaneous tissue was dissected to the level of the fascia. The fascia was incised sharply and the peritoneal cavity entered using the open Damián technique. A 12mm balloon trocar was inserted. A 10mm 0 degree scope was then placed and the peritoneal cavity was inspected. The bowel, omentum, diaphragm and liver were grossly normal in appearance. With the patient in steep trendelenburg. Two 5mm incisions were placed in the left lower quadrant and onein the right lower quadrant and laparoscopic trocars were inserted. Pelvic washings were obtained. The left round ligament was grasped and a peritoneal incision was made cephalad entering the retroperitoneal space. The ureter was identified and retracted laterally. The infundibulopelvic ligament was then ligated using the Ligasure at the pelvic brim. The peritoneum was incised and dissected to the level of the uteroovarian ligament. The uteroovarian ligament was then ligated again using the Ligasure. We turned out attention to the right adnexa and a similar procedure was performed entering the right retroperitoneum, identifying the ureter and ligating the infundibulopelvic vessels and uteroovarian ligament. The specimen was submitted to pathology. The pelvis was irrigated and hemostasis was assured. The 5mm ports were removed. The fascia underlying the umbilicus was then re-approximatedusing 0 vicryl suture. All port sites were injected with 0.5% bupivacaine. The skin was closed using 4-0 Monocryl suture. The patient tolerated the procedure well and was taken to recovery in stable condition. Final sponge, needle and instrument counts were correct x2. PRE-OP/PRE-PROCEDURE DIAGNOSIS: BRCA1 mutation carrier POST-OP/POST-PROCEDURE DIAGNOSIS: Same as Preop ESTIMATED BLOOD LOSS: 30 mls SPECIMENS: ID Type Source Tests Collected by Time Destination A : Wash Pelvic CYTOLOGY NON-PRINCIPAL SOLUTIONS ARCHITECT Gina Cisneros MD 12/05/2024 12:19 PM B : Tissue Uterus, Cervix, Bilateral Fallopian Tubes, and Bilateral Ovaries SURGICAL PATHOLOGY Gina Cisneros MD 12/05/2024 12:58 PM IMPLANTABLE DEVICES: NONE DRAINS: None COMPLICATIONS: None CLOSURE TECHNIQUE: Primary PARTICIPATION IN SURGERY/PROCEDURE: I/primary surgeon/proceduralist performed the procedure with assistance. No qualified resident/fellow was available. I/primary surgeon/proceduralist performed the procedure with assistance. The PA assisted during theentire procedure and closed the skin at the end of the procedure as there was no qualified resident/fellow was available. I was present and scrubbed during the entire procedure until closure of the skin and was immediately available during that time. SIGNATURE: Gina Cisneros MD PATIENT NAME: Laverne Guy DATE: December 05, 2024 TIME: 2:01 PM documented in this encounter Plan of Treatment DateTypeDepartmentCare Team (Latest Contact Info)Glgjsdtkfck83/07/2025 8:15 AM ESTVisit (SP) Office Gynecology [address] [place] [address] Shelby Crouch, INTERNET SYSTEMS ADMINISTRATOR.CHILD CARE CENTRE DIRECTOR [address] [place] [address] POST OP OK'D WITH BG01/15/2025 3:00 PM ESTVisit (SP) Office Gynecology [address] [place] [address] Shelby Crouch, INTERNET SYSTEMS ADMINISTRATOR.CHILD CARE CENTRE DIRECTOR [address] [place] [address] POST OP01/17/2025 10:30 AM ESTDis[facility] [address] [address] Parrish Chan MD [address] [address] MENOPAUSE SMA01/18/2025 11:00 AM ESTOffice Visit [facility] [address] [address] Carly Sierra MD [address] [place] [address] annual exam06/03/2025 3:00 PM EDTDistance Health Endocrinology [place] [id number] [place] [phone] [place] [address] [place] [address] Ongoing learning about symptoms and hoxbdukceg81/21/2026 8:30 AM EDTDistanMaria [facility]ri [facility] [address] [address] Parrish Chan MD [address] [address] FOLLOW UPNameTypePriorityAssociated DiagnosesDate/TimeCYTOLOGY NON-GYNLabRoutine BRCA1 gene mutation positive in female Ovarian cyst, right Preop examination 12/05/2024 12:19 PM EDTSURGICAL PATHOLOGYLabRoutine BRCA1 gene mutation positive in female Ovarian cyst, right Preop examination 12/05/2024 12:58 PM EDTNameTypePriorityAssociated DiagnosesOrder Schedule CYTOLOGY NON-GYNLabRoutine BRCA1 gene mutation positive in female Ovarian cyst, right Preop examination Release Upon Ordering for 1 Occurrences starting 12/05/2024, 1 completedSURGICAL PATHOLOGYLabRoutine BRCA1 gene mutation positive in female Ovarian cyst, right Preop examination Release Upon Ordering for 1 Occurrences starting 12/05/2024, 1 completed documented as of this encounter Procedures Procedure NamePriorityDate/TimeAssociated DiagnosisCommentsLAPS TOTAL HYSTERECT 250 GM/< W/RMVL TUBE/OVARY12/05/2024 10:54 AM EDT BRCA1 gene mutation positive in female Ovarian cyst, right Preop examination CONFIRM BLOOD WUZXTCKD90/22/2025 10:00 AM EDT documented in this encounter Results * CONFIRM BLOOD TYPE (12/05/2024 10:00 AM EDT)ComponentValueRef RangeTest Method Analysis TimePerformed AtPathologist DphgdjpfiZBXG79/22/2025 10:57 AM EDT NATICK BLOOD BANKRh(D)Cmrxkmjw54/22/2025 10:57 AM EDTFUNION [facility] Specimen (Source)Anatomical Location / LateralityCollection Method / Volume Collection TimeReceived TimeBloodBLOOD SPECIMEN / UnknownVenipuncture / Onfngic2112/05/2024 10:00 AM EDT1 10:09 AM EDT Narrative Authorizing ProviderResult TypeResult StatusJohn Jhon SMITH BANKFinal ResultPerforming OrganizationAddressCity/State/ZIP CodePhone Number [facility] [address] [place] [address], documented in this encounter Visit Diagnoses Diagnosis BRCA1 gene mutation positive in female Ovarian cyst, right Other and unspecified ovarian cyst Preop examination Preoperative examination, unspecified documented in this encounter Administered Medications Medication OrderMAR ActionAction DateDoseRateSite fentaNYL 50 mcg/mL 50 mcg injection (SUBLIMAZE) 50 mcg, INTRAVENOUS, EVERY 10 MINUTES NEEDED, 4 doses, Starting on Tue12/05/24 at 1333, Until Tue12/05/24 at 1435, FIRST LINE THERAPY for mild, moderate, or severe pain, USE FOR MILD PAIN ONLY IF PATIENT IS UNABLE TO TOLERATE ORAL THERAPY, Recovery or Phase I (only) Given12/05/2024 2:35 PM EDT50 nvnMyhkj22/22/2025 2:25 PM EDT50 mcgGiven 12/05/2024 2:13 PM EDT50 mcg HYDROmorphone 0.2 mg injection (DILAUDID) 0.2 mg, INTRAVENOUS, EVERY 5 MINUTES NEEDED, 10 doses, Starting on Tue12/05/24 at 1333, Until Tue12/05/24 at 1906, SECOND LINE THERAPY for pain score 1 or greater, USE FOR MILD PAIN (1-3) ONLY IF PATIENT IS UNABLE TO TOLERATE ORAL THERAPY Caution: IV hydromorphone is approximately 8 times MOREPOTENT than IV morphine. For example, hydromorphone 1mg IV = morphine 8mg IV, Recovery or Phase I (only) Given12/05/2024 3:15 PM EDT0.2 jrJdpar5712/05/2024 3:10 PM EDT0.2 mgGiven 12/05/2024 2:55 PM EDT0.2 mg ipratropium-albuterol 3 mL nebulizer solution (DUONEB) 3 mL, INHALATION, NEEDED, 1 dose, Starting on Tue12/05/24 at 1333, Until Tue12/05/24 at 1906, wheezing/shortness of breath, PROTECT FROM LIGHT. The unit- dose vial should remain stored in the protective foil pouch until time of use., Recovery or Phase I (only) lactated ringers iv infusion 5-30 mL/hr, INTRAVENOUS, CONTINUOUS, Starting on Tue12/05/24 at 1000, Until Tue12/05/24 at 1332, Preprocedure New Bag/Syringe/Qittui5412/05/2024 10:03 AM EDT30 mL/hr30 mL/hr lactated ringers iv infusion 5-30 mL/hr, INTRAVENOUS, CONTINUOUS, Starting on Tue12/05/24 at 1400, Until Tue12/05/24 at 1906, Recovery or Phase I (only) Rate Azwlle6412/05/2024 1:54 PM EDT30 mL/hr30 mL/hr ondansetron (PF) 4 mg injection (ZOFRAN) 4 mg, INTRAVENOUS, EVERY 6 HOURS NEEDED, Starting on Tue12/05/24 at 1333, Until Tue12/05/24 [id number], Nausea/Vomiting - First Line - Parenteral, EVERY 6 HOURS NEEDED Give IV push over 2 minutes. Use when patient unable to take medications by mouth., Recovery or Phase I (only) Given12/05/2024 2:01 PM EDT4 mg ondansetron 4 mg tab(s) (ZOFRAN) 4 mg, ORAL, EVERY 6 HOURS NEEDED, Starting on Tue12/05/24 at 1333, Until Tue12/05/24 at 1906, Nausea/Vomiting - First Line - Enteral, EVERY 6 HOURS NEEDED Use when patient able to take medications by mouth., Recovery or Phase I (only) oxyCODONE IR 5 mg tab(s) (ROXICODONE) 5 mg, ORAL, NEEDED, 1 dose, Starting on Tue12/05/24 at 1333, Until Tue12/05/24 at 1450, Moderate Pain (4-6) - Enteral, Recovery or Phase I (only) Given12/05/2024 2:50 PM EDT5 mg prochlorperazine 10 mg injection (COMPAZINE) 10 mg, INTRAVENOUS, EVERY 6 HOURS NEEDED, Starting on Tue12/05/24 at 1333, Until Tue12/05/24 at 1906, Nausea/Vomiting - Second Line - Parenteral, EVERY 6 HOURS NEEDED Protect From Light, Recovery or Phase I (only) documented in this encounter Active and Recently Administered Medications Times are shown in EDT.Medication Order// ceFAZolin iv piggyback 2 g in D5W (iso-osmotic) 100 mL (ANCEF) (COMPLETED) 2 g, INTRAVENOUS, at 200 mL/hr, Administer over 30 Minutes, PRE-OP ONCE, 1 dose, On Tue12/05/24 [id number], Refrigerate, Antimicrobial indication: Prophylaxis, Preprocedure * 1002 (Sent with Patient - Provider: Barbara Licea RN) * 1139 (Given - Provider: Erendira Coffman CRNA) heparin 5,000 Units injection (COMPLETED) 5,000 Units, SUBCUTANEOUS, ONCE, 1 dose, On Tue12/05/24 at 1000, SEND WITH PATIENT TO OR Day of Surgery Pre Op Order, Preprocedure * 1002 (Sent with Patient - Provider: Barbara Licea RN) * 1135 (Given - Provider: Erendira Coffman CRNA) metroNIDAZOLE iv piggyback 500 mg in NaCl (iso-osmotic) 100 mL (FLAGYL) (COMPLETED) 500 mg, INTRAVENOUS, at 200 mL/hr, Administer over 30 Minutes, PRE-OP ONCE, 1 dose, On Tue12/05/24at 1000, Antimicrobial indication: Prophylaxis, Preprocedure * 1002 (Sent with Patient - Provider: Barbara Licea RN) * 1148 (Given - Provider: Erendira Coffman CRNA) Medication Order// lactated ringers iv infusion (CANCELED) 5-30 mL/hr, INTRAVENOUS, CONTINUOUS, Starting on Tue12/05/24 at 1000, Until Tue12/05/24 at 1332, Preprocedure * 1003 (New Bag/Syringe/Bottle - Provider: Barbara Licea RN) * 1332 (Due: Order Ending - Provider: Reg In Adtr - Comment: [Order ends at this time. Document the following action when infusion is complete: Infusion Complete]) lactated ringers iv infusion 5-30 mL/hr, INTRAVENOUS, CONTINUOUS, Starting on Tue12/05/24 at 1400, Until Tue12/05/24 at 1906, Recovery or Phase I (only) * 1354 (Rate Verify - Provider: Marj Hunter RN) * 1906 (Due: Order Ending - Provider: Reg In Adtr - Comment: [Order ends at this time. Document the following action when infusion is complete: Infusion Complete]) Medication Order bupivacaine 0.5 % injection (MARCAINE CHAD) (CANCELED) X (OR/PROCEDURE) PRN, Starting on Tue12/05/24 at 1322, Until Tue12/05/24 at 1354, Intraprocedure * 1322 (Given - Provider: Gina Cisneros MD) fentaNYL 50 mcg/mL 50 mcg injection (SUBLIMAZE) (COMPLETED) 50 mcg, INTRAVENOUS, EVERY 10 MINUTES NEEDED, 4 doses, Starting on Tue12/05/24 at 1333, Until Tue12/05/24 at 1435, FIRST LINE THERAPY for mild, moderate, or severe pain, USE FOR MILD PAIN ONLY IF PATIENT IS UNABLE TO TOLERATE ORAL THERAPY, Recovery or Phase I (only) * 1400 (Given - Provider: Marj Hunter RN) * 1413 (Given - Provider: Marj Hunter RN) * 1425 (Given - Provider: Marj Hunter RN) * 1435 (Given - Provider: Marj Hunter RN) HYDROmorphone 0.2 mg injection (DILAUDID) 0.2 mg, INTRAVENOUS, EVERY 5 MINUTES NEEDED, 10 doses, Starting on Tue12/05/24 at 1333, Until Tue12/05/24 at 1906, SECOND LINE THERAPY for pain score 1 or greater, USE FOR MILD PAIN (1-3) ONLY IF PATIENT IS UNABLE TO TOLERATE ORAL THERAPY Caution: IV hydromorphone is approximately 8 times MOREPOTENT than IV morphine. For example, hydromorphone 1mg IV = morphine 8mg IV, Recovery or Phase I (only) * 1450 (Given - Provider: Marj Hunter RN) * 1455 (Given - Provider: Marj Hunter RN) * 1510 (Given - Provider: Marj Hunter RN) * 1515 (Given - Provider: Marj Hunter RN) ipratropium-albuterol 3 mL nebulizer solution (DUONEB) 3 mL, INHALATION, NEEDED, 1 dose, Starting on Tue12/05/24 at 1333, Until Tue12/05/24 at 1906, wheezing/shortness of breath, PROTECT FROM LIGHT. The unit- dose vial should remain stored in the protective foil pouch until time of use., Recovery or Phase I (only) ondansetron (PF) 4 mg injection (ZOFRAN)(Linked Group 1) 4 mg, INTRAVENOUS, EVERY 6 HOURS NEEDED, Starting on Tue12/05/24 at 1333, Until Tue12/05/24 [id number], Nausea/Vomiting - First Line - Parenteral, EVERY 6 HOURS NEEDED Give IV push over 2 minutes. Use when patient unable to take medications by mouth., Recovery or Phase I (only) * 1401 (Given - Provider: Marj Hunter RN) ondansetron 4 mg tab(s) (ZOFRAN)(Linked Group 1) 4 mg, ORAL, EVERY 6 HOURS NEEDED, Starting on Tue12/05/24 at 1333, Until Tue12/05/24 at 1906, Nausea/Vomiting - First Line - Enteral, EVERY 6 HOURS NEEDED Use when patient able to take medications by mouth., Recovery or Phase I (only) * 1401 (See Alternative - Provider: Marj Hunter RN) oxyCODONE IR 5 mg tab(s) (ROXICODONE) (COMPLETED) 5 mg, ORAL, NEEDED, 1 dose, Starting on Tue12/05/24 at 1333, Until Tue12/05/24 at 1450, Moderate Pain (4-6) - Enteral, Recovery or Phase I (only) * 1450 (Given - Provider: Marj Hunter, CRYSTAL) prochlorperazine 10 mg injection (COMPAZINE) 10 mg, INTRAVENOUS, EVERY 6 HOURS NEEDED, Starting on Tue12/05/24 at 1333, Until Tue12/05/24 at 1906, Nausea/Vomiting - Second Line - Parenteral, EVERY 6 HOURS NEEDED Protect From Light, Recovery or Phase I (only) Order Group 1: ondansetron 4 mg tab(s) (ZOFRAN)Jump to med 4 mg, ORAL, EVERY 6 HOURS NEEDED, Starting on Tue12/05/24 at 1333, Until Tue12/05/24 at 1906, Nausea/Vomiting - First Line - Enteral, EVERY 6 HOURS NEEDED Use when patient able to take medications by mouth., Recovery or Phase I (only) Or ondansetron (PF) 4 mg injection (ZOFRAN)Jump to med 4 mg, INTRAVENOUS, EVERY 6 HOURS NEEDED, Starting on Tue12/05/24 at 1333, Until Tue12/05/24 [id number], Nausea/Vomiting - First Line - Parenteral, EVERY 6 HOURS NEEDED Give IV push over 2 minutes. Use when patient unable to take medications by mouth., Recovery or Phase I (only) documented in this encounter Care Teams Team MemberRelationshipSpecialtyStart DateEnd Date Carolin Roca MD [address] [place] [address] PCP - GeneralFamily Vmdofttl09/9/[address] APRN [address] [place], [place] [id number] ReferringFamily Mehlfkmh24/9/24documented as of this encounter
--- OUTSIDE RECORDS SUMMARY | 2024-12-05 09:50 | XMS_ITS | Encounter Summary ---
Author Organization [facility] Address [facility] [place] [address] Care Team Providers Care Time Lock Expert Name Role Phone Rose Mary Lane Jeffery NUT PROCESS HELPER Unavailable [phone] Carolin Roca MD Primary Care Provider [phone] Source Comments In the event this information is protected by the Federal Confidentiality of Alcohol and Drug AbusePatient Records regulations: The Federal rules restrict any use of the information to criminally investigate or prosecute any alcohol or drug abuse patient.[facility] Reason for Visit * Auth/Cert (Routine)SpecialtyDiagnoses / ProceduresReferred By ContactReferred To ContactADMITTING Diagnoses BRCA1 gene mutation positive in female Ovarian cyst, right Preop examination BRCA1 gene mutation positive in female [Z15.01, Z15.02, Z15.09] Ovarian cyst, right [N83.201] Preop examination [Z01.818] Procedures LAPS TOTAL HYSTERECT 250 GM/< W/RMVL TUBE/OVARY LAPAROSCOPIC HYSTERECTOMY TOTAL FOR UTERUS 250 G OR LESS W/REMOVAL TUBE(S) AND/OR OVARY(S) Admitting [facility] [place] [address] Referral IDStatusReasonStart DateExpiration DateVisits RequestedVisits [id number] Encounter Details DateTypeDepartmentCare Team (Latest Contact Info)Lzdwhkndgng16/22/2025 9:50 AM EDT - 12/05/2024 1:30 PM EDTSurgery [facility] [address] [place] [address] [place] [address] [place] [address] LAPAROSCOPIC HYSTERECTOMY TOTAL FOR UTERUS 250 G OR LESS W/REMOVAL TUBE(S) AND/OR OVARY(S) Surgery Details Date/TimeStatusLocationORServicePatient ClassCase ClassCase TypeTrauma Case? 12/05/2024 9:50 AMPostedFV OROR 02Obstetrics/GynecologyAmbulatory Surgery ElectivePanel 1 ProcedureLRBAnesOp RegionWound ClassCommentsLAPAROSCOPIC HYSTERECTOMY TOTAL FOR UTERUS 250 G OR LESS W/REMOVAL TUBE(S) AND/OR OVARY(S) BilateralGeneralPelvisClean Contaminated Bilateral salpingo-oophorectomy, cysto SurgeonSurgeon RoleServicePanelAlGina thurman, JESUSrimaryObstetrics/Gynecology1 documented in this encounter Social History Tobacco UseTypesPacks/DayYears UsedDateSmoking Tobacco: NeverSmokeless Tobacco: NeverAlcohol UseStandard Drinks/WeekCommentsYes0 (1 standard drink = 0.6 oz pure alcohol)rarePHQ-2AnswerDate RecordedPHQ-2 syvvi674rea Deprivation IndexAnswerDate RecordedNational Score (1-100), lower number is lower risk76 07/06/2022State Score (1-10), lower number is lower vibl0863Data from: https://www.neighborhoodatlas.medicine.[facility].edu/. Last address used for nwvouomvulg[address]07/06/2022CommentsNoSex and Gender InformationValueDate RecordedSex Assigned at DiswiYbsmbl87/12/2025 12:01 PM EDT Legal JjsSnfjaz22/19/2015 10:08 AM ESTGender CneyduxoQywjvm45/12/2025 12:01 PM EDTSexual KoujdmrnvcdWwswoggw84/10/2020 2:09 PM ESTdocumented as of this encounter Last Filed Vital Signs Vital SignReadingTime TakenCommentsBlood Psrtpbqv880/6912/05/2024 9:48 AM EDT Mbzsu034812/05/2024 9:48 AM WTYLjkwnqmyxxu48.8 ??C (98.2 ??F)12/05/2024 9:48 AM EDTRespiratory Bmgv6242 9:48 AM EDTOxygen Vrwrygzped679%12/05/2024 9:48 AM EDTInhaled Oxygen Concentration--Weight--Height--Body Mass Index--documented in this encounter Functional Status * Are you deaf or do you have serious difficulty hearing?AnswerDate of VbeqxouyhvKrsxgmTs68/10/2015 10:15 AM Lia Lang RN * Are you blind or do you have serious difficulty seeing, even when wearing glasses?AnswerDate of RgufhnkitrFjqzrfPe10/10/2015 10:15 AM Lia Lang RN * Do you have serious difficulty walking or climbing stairs?AnswerDate of CinxohdrmiOnlqnpKk89/10/2015 10:15 AM Lia Lang RN * Do you have difficulty dressing or bathing?AnswerDate of AssessmentAuthorNo 11/23/2014 10:15 AM Lia Lang RN * Because of a physical, mental, or emotional condition, do you have difficulty doing errands alone such as visiting a doctor's office or shopping?AnswerDate of FkzpkmtleyWlwdahTe00/10/2015 10:15 AM Lia Lang RN documented as of this encounter Mental Status * Because of a physical, mental, or emotional condition, do you have serious difficulty concentrating, remembering, or making decisions?AnswerEntry Date TszjtvGh57/10/2015 10:15 AM Lia Lang RN documented in [...] Please contact your surgeon???s office if any [facility] paperwork is needed. WOUND CARE You [...] disposal station (located in many of the [facility] pharmacies). Do not flush them down [...] 3 days. 9 tablet 12/05/2024 4:02 PM EDT1/ polyethylene glycol 3350 (MIRALAX PO) Take by [...] 11:14 AM EDT OPERATIVE/PROCEDURE REPORT LOG ID: [id number] SURGERY/PROCEDURE DATE: 12/05/2024 INCISION/PROCEDURE START TIME: 12:01 PM INCISION CLOSE/PROCEDURE END TIME: 1:45 PM SURGEON(S)/PROCEDURALIST(S) AND TIPPLE BOSS(S): Surgeons and Role: * Gina Cisneros MD - Primary Nurse Practitioner: Renée Mohr APRN.ELECTRIC RANGE ASSEMBLER Physician Triage Licensed Practical Nurse: Isha Martinez PA-C SURGERY/PROCEDURE(S): Laparoscopic assisted hysterectomy [...] Time Destination A : Wash Pelvic CYTOLOGY NON-MASTER TAX ADVISOR Gina Cisneros MD 12/05/2024 12:19 PM B [...] Plan of Treatment DateTypeDepartmentCare Team (Latest Contact Info)Hqexhovofpx76/07/2025 8:15 AM ESTVisit (SP) Office Gynecology [address] [place] [address] Shelby Crouch, NUT PROCESS HELPER.ELECTRIC RANGE ASSEMBLER [address] [place] [address] POST OP OK'D WITH BG01/15/2025 3:00 PM ESTVisit (SP) Office Gynecology [address] [place] [address] Shelby Crouch, NUT PROCESS HELPER.ELECTRIC RANGE ASSEMBLER [address] [place] [address] POST OP01/17/2025 10:30 AM [facility] [address] [address] Parrish Chan MD [address] [place] [id number] MENOPAUSE SMA01/18/2025 11:00 AM ESTOffice Visit [facility] [address] [address] Carly Sierra MD [address] [place] [address] annual exam06/03/2025 3:00 PM EDTDisU.[facility]. [facility] [place] [address] [place] [id number] [place] [address] [place] [address] Ongoing learning about symptoms and mnvlettoyq37/21/2026 8:30 [facility] [address] [address] Parrish Chan MD [address] [address] FOLLOW UPNameTypePriorityAssociated DiagnosesDate/TimeCYTOLOGY NON-GYNLabRoutine BRCA1 gene mutation [...] Ovarian cyst, right Preop examination CONFIRM BLOOD AWZHRFTF46/22/2025 10:00 AM EDT documented in this encounter Results * CONFIRM BLOOD TYPE (12/05/2024 10:00 AM EDT)ComponentValueRef RangeTest Method Analysis TimePerformed AtPathologist MudqqxnlnZKXA82/22/2025 10:57 AM EDT [facility](D)Gyssbrxx95/22/2025 10:57 AM EDTFBR[facility] Specimen (Source)Anatomical Location / LateralityCollection Method / Volume Collection TimeReceived TimeBloodBLOOD SPECIMEN / UnknownVenipuncture / Tsvnrfm0912/05/2024 10:00 AM EDT1 10:09 AM EDT Narrative Authorizing ProviderResult TypeResult StatusJohn Jhon DOBLOOD BANKFinal ResultPerforming OrganizationAddressCity/State/ZIP CodePhone Number [facility] [address] [place] [address], documented in this encounter Visit Diagnoses Diagnosis BRCA1 gene mutation positive in female Ovarian cyst, right Other and unspecified ovarian cyst Preop examination Preoperative examination, unspecified BRCA1 gene mutation positive in female Ovarian cyst, right Other and unspecified ovarian cyst Preop examination Preoperative examination, unspecified documented in this encounter Administered Medications Medication OrderMAR ActionAction DateDoseRateSite bupivacaine 0.5 % injection (MARCAINE MDV) X (OR/PROCEDURE) PRN, Starting on Tue12/05/24 at 1322, Until Tue12/05/24 at 1354, Intraprocedure Given12/05/2024 1:22 PM EDT30 mLAbdominal Tissue fentaNYL 50 mcg/mL 50 mcg injection (SUBLIMAZE) 50 mcg, INTRAVENOUS, EVERY 10 MINUTES NEEDED, 4 doses, Starting on Tue12/05/24 at 1333, Until Tue12/05/24 at 1435, FIRST LINE THERAPY for mild, moderate, or severe pain, USE FOR MILD PAIN ONLY IF PATIENT IS UNABLE TO TOLERATE ORAL THERAPY, Recovery or Phase I (only) Given12/05/2024 2:35 PM EDT50 gdtWmtfe31/22/2025 2:25 PM EDT50 mcgGiven 12/05/2024 2:13 PM [...] Phase I (only) Given12/05/2024 3:15 PM EDT0.2 hmRffmh0312/05/2024 3:10 PM EDT0.2 mgGiven 12/05/2024 2:55 PM [...] 1000, Until Tue12/05/24 at 1332, Preprocedure New Bag/Syringe/Eyzmfs4612/05/2024 10:03 AM EDT30 mL/hr30 mL/hr lactated ringers iv infusion 5-30 mL/hr, INTRAVENOUS, CONTINUOUS, Starting on Tue12/05/24 at 1400, Until Tue12/05/24 at 1906, Recovery or Phase I (only) Rate Vymhqv3412/05/2024 1:54 PM EDT30 mL/hr30 mL/hr ondansetron (PF) 4 mg injection (ZOFRAN) 4 mg, INTRAVENOUS, EVERY 6 HOURS NEEDED, Starting on Tue12/05/24 at 1333, Until Tue12/05/24 vw1039, Nausea/Vomiting - First Line - Parenteral, EVERY [...] Administered Medications Times are shown in EDT.Medication Order ceFAZolin iv piggyback 2 g in D5W (iso-osmotic) 100 mL (ANCEF) (COMPLETED) 2 g, INTRAVENOUS, at 200 mL/hr, Administer over 30 Minutes, PRE-OP ONCE, 1 dose, On Tue12/05/24 [id number], Refrigerate, Antimicrobial indication: Prophylaxis, Preprocedure * 1002 [...] when infusion is complete: Infusion Complete]) Medication Order/ bupivacaine 0.5 % injection (MARCAINE CHAD) (CANCELED) [...] Starting on Tue12/05/24 at 1333, Until Tue12/05/24 [id number], Nausea/Vomiting - First Line - Parenteral, EVERY [...] 1450 (Given - Provider: Marj Hunter RN) prochlorperazine 10 mg injection (COMPAZINE) 10 mg, [...] Starting on Tue12/05/24 at 1333, Until Tue12/05/24 op1982, Nausea/Vomiting - First Line - Parenteral, EVERY 6 HOURS NEEDED Give IV push over 2 minutes. Use when patient unable to take medications by mouth., Recovery or Phase I (only) documented in this encounter Care Teams Team MemberRelationshipSpecialtyStart DateEnd Date Carolin Roca MD [address] [place] [address] PCP - GeneralFamily Xygnzlon01/9/[address] APRN [address] [place] [address] ReferringFamily Sekfepvl67/9/24documented as of this encounter
--- OUTSIDE RECORDS SUMMARY | 2024-12-05 11:14 | XMS_ITS | Encounter Summary ---
Author Organization [facility] Address [facility] [place] [address] Care Team Providers Care Chief Of Safety And Protection Name Role Phone Rose Mary Lane Jeffery VAN CDL DRIVER Unavailable [phone] Carolin Roca MD Primary Care Provider [phone] Source Comments In the event this information is protected by the Federal Confidentiality of Alcohol and Drug AbusePatient Records regulations: The Federal rules restrict any use of the information to criminally investigate or prosecute any alcohol or drug abuse patient.[facility] Reason for Visit * Auth/Cert (Routine)SpecialtyDiagnoses / ProceduresReferred By ContactReferred To ContactADMITTING Diagnoses BRCA1 gene mutation positive in female Ovarian cyst, right Preop examination BRCA1 gene mutation positive in female [Z15.01, Z15.02, Z15.09] Ovarian cyst, right [N83.201] Preop examination [Z01.818] Procedures LAPS TOTAL HYSTERECT 250 GM/< W/RMVL TUBE/OVARY LAPAROSCOPIC HYSTERECTOMY TOTAL FOR UTERUS 250 G OR LESS W/REMOVAL TUBE(S) AND/OR OVARY(S) Admitting [facility] [place] [address] Referral IDStatusReasonStart DateExpiration DateVisits RequestedVisits [id number] Encounter Details DateTypeDepartmentCare Team (Latest Contact Info)Cvmawaqebtm86/22/2025 11:14 AM EDTAnesthesia Event [facility] Operating Room [address] [place] [address] [place] [address] [address] [place] [address] MeghnaErendira CRNA [address] [place], [place] [id number] Anesthesia Record Procedure NameResponsible AnesthesiologistAnesthesia Start TimeAnesthesia Stop TimeLAPAROSCOPIC HYSTERECTOMY TOTAL FOR UTERUS 250 G OR LESS W/REMOVAL TUBE(S) AND/OR OVARY(S) (Bilateral: Pelvis)Charlie Ferreira DO12/05/24 [id number] JyepElucUtultYackozs18/22/30466926Lq StartI have re-evaluated the patient immediately prior to induction.1114An Start Sfnb8673St InductionI have re- evaluated the patient immediately prior to induction.1129An Gscwddwzbz9828 Anesthesia Bhhxo2879Uhzwcqgu/Procedure Hjayv4235Ooxm Handoff Spmsa9690Cnsy Handoff Nosal7756Xnzin Goycxsf8311Ifwbx infiltration by wiinndp8042Mqrlvn7498 Procedure Oia4649Es ExtubationPatient : Airway suctioned clear; following commands with adequate responsiveness; strength and spontaneous ventilation confirmed; stable hvqexpfybbuz1280wj stop iuhq5894Wawzyyc to RNI completed my handoff to the receiving nurse during which we: 1. Identified the patient 2. Identified the responsible provider 3. Reviewed the pertinent medical history 4. Discussed the surgical course 5. Reviewed intra-op anesthesia management and issues during anesthesia 6. Set expectations for post-procedure period 7. Allowed opportunity for questions and acknowledgement of understanding.1357An Stop* NameTotaldexamethasone 4 mg/mL4 mgfentaNYL 0.05 mg/mL100 mcglidocaine (PF) 2%100 mgmidazolam 1 mg/mL2 mgondansetron 4 mg/2 mL4 mgpropofol infusion 10 mg/mL839,050 mcgrocuronium 10 mg/mL100 mgsugammadex fsmgwoqpo686 mgheparin 5,000 Units injection5,000 UnitsceFAZolin iv piggyback 2 g in D5W (iso- osmotic) 100 mL (ANCEF)2 gmetroNIDAZOLE iv piggyback 500 mg in NaCl (iso- osmotic) 100 mL (FLAGYL)500 mgfluorescein 10%25 rwXH176 cJBA732 mL * Agents Name ETO2 ETN2O Inspired N2O Set O2% Set Fresh Gas Flow Inspired Sevoflurane O2 Flow Rate Air Sevoflurane * Blood No blood administrations on file. MtkeGrpjanqHavrcvjftOosomolEsgmd39/22/25; 1201; Surgical; Laparoscopic; Laparoscopy Sites-Abdomen; 4 port sites to abdomen with suture and glue12/05/24 1201 by Charo Rothman, WMOlrfb82/22/25; [facility] (PA inserted bob); Bob; 12/05/24; [id number] by Gina Lala MD 12/05/24 1322 by Margy Grant, RNPIV12/05/24; 0957; [facility]; Left; Antecubital; 20 Gauge; 12/05/24; 1624; Meets Criteria for Rwljprj57/22/25 0957 by Barbara Licea RN12/05/24 1624 by Itzel Rabago, RNAirwayEndotracheal Tube; 12/05/24; 1129 (created via procedure documentation); 7 mm; Cuffed; No; 12/05/24; [id number] 1129 by Charlie Ferreira, DO12/05/24 1349 by Erendira Coffman, REEDOME32/22/25; 1135 (created via procedure documentation); Right; Hand; 18 Gauge; 12/05/24; [id number] 1135 by Charlie Ferreira, DO12/05/24 1639 by Itzel Rabago, CARRIEIV12/05/24; 1145 (created via procedure documentation); Left; Hand; 18 Gauge; 12/05/24; 1623; Meets Criteria for Iqfnldn71/22/25 1145 by Charlie Ferreira, DO12/05/24 1623 by Itzel Rabago, RNdocumented in this encounter Social History Tobacco UseTypesPacks/DayYears UsedDateSmoking Tobacco: NeverSmokeless Tobacco: NeverAlcohol UseStandard Drinks/WeekCommentsYes0 (1 standard drink = 0.6 oz pure alcohol)rarePHQ-2AnswerDate RecordedPHQ-2 kmfuw175rea Deprivation IndexAnswerDate RecordedNational Score (1-100), lower number is lower risk76 07/06/2022State Score (1-10), lower number is lower yecw89507/06/2022ata from: https://www.neighborhoodatlas.medicine.[facility]/. Last address used for zuvyknubfbj[address]07/06/2022CommentsNoSex and Gender InformationValueDate RecordedSex Assigned at MzxdzSvljwn96/12/2025 12:01 PM EDT Legal KtfPxypyc17/19/2015 10:08 AM ESTGender EualwjqoEectjx73/12/2025 12:01 PM EDTSexual IeqjdtohsvtMektmhgt74/10/2020 2:09 PM ESTdocumented as of this encounter Last Filed Vital Signs Vital SignReadingTime TakenCommentsBlood Ihgomoxy398/8312/05/2024 1:48 PM EDT Fcbwf294812/05/2024 1:50 PM EDTTemperature--Respiratory Rate--Oxygen Saturation 100%12/05/2024 1:50 PM EDTInhaled Oxygen Concentration--Weight--Height--Body Mass Index--documented in this encounter Functional Status * Are you deaf or do you have serious difficulty hearing?AnswerDate of QupzvjjufgSqvgrvBo11/10/2015 10:15 AM Lia aLng RN * Are you blind or do you have serious difficulty seeing, even when wearing glasses?AnswerDate of JnnqnvmoksJhacptRj55/10/2015 10:15 AM Lia Lang RN * Do you have serious difficulty walking or climbing stairs?AnswerDate of LiydpkbhncVgkydjDk40/10/2015 10:15 AM Lia Lang RN * Do you have difficulty dressing or bathing?AnswerDate of AssessmentAuthorNo 11/23/2014 10:15 AM Lia Lang RN * Because of a physical, mental, or emotional condition, do you have difficulty doing errands alone such as visiting a doctor's office or shopping?AnswerDate of IiuzlckiufNgjxpwYh75/10/2015 10:15 AM Lia Lang RN documented as of this encounter Mental Status * Because of a physical, mental, or emotional condition, do you have serious difficulty concentrating, remembering, or making decisions?AnswerEntry Date XauziwDq77/10/2015 10:15 AM Lia Lang RN documented in this encounter Procedure Notes * Erendira Coffman CRNA - 12/05/2024 12:46 PM EDTAssociated Order(s): Airway ANESTHESIOLOGY PROCEDURE NOTE Airway General Information Procedure Start Time/Medication Administration: 12/05/2024 11:29 AM Procedure End Time: 12/05/2024 11:29 AM Patient location during procedure: OR Timeout Performed Pre-procedure: timeout performed Consent Obtained: Yes Patient identity confirmed: arm band, care cafeteria team leader and patient Staffing Anesthesiologist: Charlie Ferreira DO SDV PILOT/NAVIGATOR/DDS OPERATOR: Erendira Coffman CRNA Performed by: BIN Indications and Patient Condition Indications for airway management: anesthesia Preoxygenated: yes anesthesia circuit Patient position: sniffing Method: asleep Cricoid Pressure: No Manual In-Line Stabilization: No Difficult Mask: No Final Airway Details Final airway type: endotracheal airwayFinal Endotracheal Airway: ETT Cuffed: yes Successful intubation technique: video laryngoscopy Devices used: Barnes Endotracheal tube insertion site: oral Blade: Anika Blade size: #3 ETT size (mm): 7.0 Measured from: lips Measurement (cm): 21 Placement verified by: capnometry Cormack-Lehane Classification: grade I - full view of glottis Number of attempts at approach: 1 Failed airway: no Unrecognized esophageal intubation: no Airway not difficult SIGNATURE: Erendira Coffman CRNA PATIENT NAME: Laverne Guy DATE: December 05, 2024 TIME: 12:46 PM CSN: [id number] * Erendira Coffman CRNA - 12/05/2024 12:34 PM EDTAssociated Order(s): PIV ANESTHESIOLOGY PROCEDURE NOTE PIV General Information Procedure Start Time/Medication Administration: 12/05/2024 11:35 AM Procedure End Time: 12/05/2024 11:35 AM Patient Location: OR Staffing SDV PILOT/NAVIGATOR/DDS OPERATOR: Erendira Coffman CRNA Performed by: BIN Preparation Sterility Preparation: hand hygiene performed prior to procedure, surgical cap used, mask used Site Prep: chlorhexidine Procedure Details Indication: need for IV access Needle Size/Type: 18 gauge angiocath Orientation: Right Location: Hand Imaging Guidance Used: No SIGNATURE: Erendira Coffman CRNA PATIENT NAME: Laverne Gil Amor DATE: December 05, 2024 TIME: 12:34 PM CSN: [id number] * Erendira Coffman CRNA - 12/05/2024 12:33 PM EDTAssociated Order(s): PIV ANESTHESIOLOGY PROCEDURE NOTE PIV General Information Procedure Start Time/Medication Administration: 12/05/2024 11:45 AM Procedure End Time: 12/05/2024 11:45 AM Patient Location: OR Staffing SDV PILOT/NAVIGATOR/DDS OPERATOR: Erendira Coffman CRNA Performed by: SDV PILOT/NAVIGATOR/DDS OPERATOR Preparation Sterility Preparation: hand hygiene performed prior to procedure, surgical cap used, mask used Site Prep: chlorhexidine Procedure Details Indication: need for IV access Needle Size/Type: 18 gauge angiocath Orientation: Left Location: Hand Imaging Guidance Used: No SIGNATURE: Erendira Coffman CRNA PATIENT NAME: Laverne Guy DATE: December 05, 2024 TIME: 12:33 PM CSN: [id number] * Charlie Ferreira DO - 12/05/2024 10:57 AM EDT ANESTHESIOLOGY DAY OF SURGERY NOTE : 1985 Procedure Information Date/Time: 12/05/24 0950 Procedure: LAPAROSCOPIC HYSTERECTOMY TOTAL FOR UTERUS 250 G OR LESS W/REMOVAL TUBE(S) AND/OR OVARY(S) (Bilateral: Pelvis) - bso Location: [facility] OR02 / [facility] Surgeons: Gina Lala MD Estimated body mass index is 34.43 kg/m?? as calculated from the following: Height as of 11/30/24: 168.7 cm (5' 6.42 ). Weight as of 11/30/24: 98 kg (216 lb 0.8 oz). Hemoglobin (g/dL) Date Value 11/30/2024 12.6 01/02/2019 12.7 Hematocrit (%) Date Value 11/30/2024 38.1 01/02/2019 39.5 WBC (k/uL) Date Value 11/30/2024 9.13 01/02/2019 8.16 Platelet Count (k/uL) Date Value 11/30/2024 307 01/02/2019 254 CMP: Glucose 96 11/30/2024 BUN 7 11/30/2024 Creatinine 0.86 11/30/2024 Sodium 136 11/30/2024 Potassium 4.7 11/30/2024 Chloride 101 11/30/2024 CO2 24 11/30/2024 Protein, Total 7.4 01/02/2019 Albumin 4.6 01/02/2019 Calcium 9.7 11/30/2024 Alkaline Phosphatase 43 01/02/2019 Bilirubin, Total 0.7 01/02/2019 AST 23 01/02/2019 ALT 14 01/02/2019 Relevant Problems ANESTHESIA (+) PONV (postoperative nausea and vomiting) GI (+) Gastroesophageal reflux disease PULMONARY (+) Mild intermittent asthma without complication (HCC) Other (+) Obesity, Class I, BMI 30-34.9 I - PHYSICAL EVALUATION AIRWAY Patient intubated: No. Tracheostomy tube not present Mallampati: III. TM distance: >3 FB. Neck ROM: full ROM without neurological symptoms. Mouth openin FB. Short neck: no. Thick neck: no DENTAL Dental findings: teeth intact. II - ANESTHESIA PLAN ASA Score: 2 Anesthetic Plan: general Airway type: ETT The patient is not a current smoker. NPO Status: adequate Monitoring Plan Monitoring plan: standard ASA. Post Procedure Analgesic Plan Postoperative analgesic plan: parenteral or oral opioids and multimodal analgesia. Informed Consent Anesthetic risks, benefits, alternatives, personnel and consent discussed: yes. Patient / Responsible Green Party agrees to proceed: yes Patient / Surrogate agrees to blood products: Yes DNR status not reviewed with patient and/or family prior to surgery. Significant changes in the patient condition since the History and Physical, not otherwise documented in primary service progress note: no. Potential Anesthesia issues that may suggest increased risk of complications or contraindication toplanned procedure: none. Vitals Value Taken Time BP 136/69 12/05/24 09:48 Pulse 79 12/05/24 09:48 Resp 16 12/05/24 09:48 Temp 36.8 ??C (98.2 ??F) 12/05/24 09:48 SpO2 100 % 12/05/24 09:48 Facility-Administered Medications as of 12/05/2024 Medication Dose Route Frequency dextrose 10% iv bolus 12.5 g INTRAVENOUS PRN Or glucagon 0.5-1 mg injection 0.5-1 mg INTRAMUSCULAR PRN lidocaine (PF) 10 mg/mL (1 %) 1-2 mg injection (XYLOCAINE) 0.1-0.2 mL INTRADERMAL PRN lactated ringers iv infusion 5-30 mL/hr INTRAVENOUS CONTINUOUS NaCl 0.9% iv flush bag 20 mL INTRAVENOUS PRN heparin 5,000 Units injection 5,000 Units SUBCUTANEOUS ONCE ceFAZolin iv piggyback 2 g in D5W (iso-osmotic) 100 mL (ANCEF) 2 g INTRAVENOUS Pre-Op Once metroNIDAZOLE iv piggyback 500 mg in NaCl (iso-osmotic) 100 mL (FLAGYL) 500 mg INTRAVENOUS Pre-Op Once Outpatient Medications as of 12/05/2024 Medication Sig omeprazole (PRILOSEC) 20 mg capsule Take 20 mg by mouth. sertraline (ZOLOFT) 50 mg tablet Take 50 mg by mouth every morning. norgestimate-ethinyl estradiol 0.18/0.215/0.25 mg-0.035mg (28) tablet Take 1 tablet by mouth once daily. ALBUTEROL INHALATION Inhale 1 Puff as instructed as needed. I have interviewed and examined the patient. I have reviewed the medical record and/or the pre-anesthesia evaluation, pertinent labs, and test results. This contains updated information obtained within 48 hours of Surgery/Procedure. SIGNATURE: Charlie Ferreira DO PATIENT NAME: Laverne Guy DATE: December 05, 2024 TIME: 10:57 AM CSN: [id number] documented in this encounter Plan of Treatment DateTypeDepartmentCare Team (Latest Contact Info)Rsrhcpgfcyo17/07/2025 8:15 AM ESTVisit (SP) Office Gynecology [address] [place] [address] Shelby Crouch, VAN CDL DRIVER.VOLUNTEER SERVICES SPECIALIST [address] [place] [address] POST OP OK'D WITH BG01/15/2025 3:00 PM ESTVisit (SP) Office Gynecology [address] [place] [address] Shelby Crouch, VAN CDL DRIVER.VOLUNTEER SERVICES SPECIALIST [address] [place] [address] POST OP01/17/2025 10:30 AM ESTDistance Health [facility] [address] [address] Parrish Chan MD [address] [place] [address] MENOPAUSE SMA01/18/2025 11:00 AM ESTOffice Visit [facility] [address] [phone] Carly Sierra MD [address] [place] [address] annual exam06/03/2025 3:00 PM EDTDistance Health Endocrinology [place] [id number] [place] [phone] [place]la Amaya MD [id number] [place] [phone] Ongoing learning about symptoms and cjnhanuxsh77/21/2026 8:30 AM EDTDistance Health Gynecology [address] [address] Parrish Chan MD [address] [address] FOLLOW UPdocumented as of this encounter Procedures Procedure NamePriorityDate/TimeAssociated DiagnosisCommentsPERIPHERAL IV APABAPYZYGwpniap04/22/2025 11:45 AM EDT PERIPHERAL IV ZQJZXVGJYPpvjrev89/22/2025 11:35 AM EDT ZJUOOXPUYDWvbnloc19/22/2025 11:29 AM EDT documented in this encounter Results * PERIPHERAL IV PLACEMENT (12/05/2024 11:45 AM EDT) Erendira Rose CRNA - 12/05/2024 11:45 AM EDT Erendira Coffman CRNA 12/05/2024 12:34 PM PIV General Information Procedure Start Time/Medication Administration: 12/05/2024 11:45 AM Procedure End Time: 12/05/2024 11:45 AM Patient Location: ??OR Staffing SDV PILOT/NAVIGATOR/DDS OPERATOR: Erendira Coffman CRNA Performed by: SDV PILOT/NAVIGATOR/DDS OPERATOR Preparation Sterility Preparation: hand hygiene performed prior to procedure, surgical cap used, mask used ?? Site Prep: chlorhexidine Procedure Details Indication: need for IV access Needle Size/Type: 18 gauge angiocath Orientation: ??Left Location: ??Hand Imaging Guidance Used: ??No Authorizing ProviderResult TypeResult StatusCharlie Ferreira DOANESTHESIA ORDERABLES Final Result * PERIPHERAL IV PLACEMENT (12/05/2024 11:35 AM EDT) Erendira Rose CRNA - 12/05/2024 11:35 AM EDT Erendira Coffman CRNA 12/05/2024 12:35 PM PIV General Information Procedure Start Time/Medication Administration: 12/05/2024 11:35 AM Procedure End Time: 12/05/2024 11:35 AM Patient Location: ??OR Staffing SDV PILOT/NAVIGATOR/DDS OPERATOR: Erendira Coffman CRNA Performed by: SDV PILOT/NAVIGATOR/DDS OPERATOR Preparation Sterility Preparation: hand hygiene performed prior to procedure, surgical cap used, mask used ?? Site Prep: chlorhexidine Procedure Details Indication: need for IV access Needle Size/Type: 18 gauge angiocath Orientation: ??Right Location: ??Hand Imaging Guidance Used: ??No Authorizing ProviderResult TypeResult StatusCharlie Ferreira DOANESTHESIA ORDERABLES Final Result * Airway (12/05/2024 11:29 AM EDT) Erendira Rose CRNA - 12/05/2024 11:29 AM EDT Erendira Coffman CRNA 12/05/2024 12:47 PM Airway General Information Procedure Start Time/Medication Administration: 12/05/2024 11:29 AM Procedure End Time: 12/05/2024 11:29 AM Patient location during procedure: OR Timeout Performed Pre-procedure: timeout performed Consent Obtained: Yes Patient identity confirmed: arm band, care cafeteria team leader and patient Staffing Anesthesiologist: Charlie Ferreira DO SDV PILOT/NAVIGATOR/DDS OPERATOR: Erendira Coffman CRNA Performed by: SDV PILOT/NAVIGATOR/DDS OPERATOR Indications and Patient Condition Indications for airway management: anesthesia Preoxygenated: yes ? anesthesia circuit Patient position: sniffing Method: asleep Cricoid Pressure: No Manual In-Line Stabilization: No Difficult Mask: No Final Airway Details Final airway type: endotracheal airwayFinal Endotracheal Airway: ETT Cuffed: yes Successful intubation technique: video laryngoscopy Devices used: Barnes Endotracheal tube insertion site: oral Blade: Anika Blade size: #3 ETT size (mm): 7.0 Measured from: lips Measurement (cm): 21 Placement verified by: capnometry Cormack-Lehane Classification: grade I - full view of glottis Number of attempts at approach: 1 Failed airway: no Unrecognized esophageal intubation: no Airway not difficult Authorizing ProviderResult TypeResult StatusJohn Jhon DOANESTHESIA ORDERABLES Final Result documented in this encounter Visit Diagnoses Not on filedocumented in this encounter Administered Medications Medication OrderMAR ActionAction DateDoseRateSite ceFAZolin iv piggyback 2 g in D5W (iso-osmotic) 100 mL (ANCEF) 2 g, INTRAVENOUS, at 200 mL/hr, Administer over 30 Minutes, PRE-OP ONCE, 1 dose, On Tue12/05/24 ih1536, Refrigerate, Antimicrobial indication: Prophylaxis, Preprocedure Given12/05/2024 11:39 AM EDT2 g dexAMETHasone sodium phosphate injection (DECADRON) INTRAVENOUS, NEEDED, Starting on Tue12/05/24 at 1127, Until Tue12/05/24 at 1709, Anesthesia Intraprocedure Given12/05/2024 11:27 AM EDT4 mg fentaNYL 50 mcg/mL injection (SUBLIMAZE) INTRAVENOUS, NEEDED, Starting on Tue12/05/24 at 1200, Until Tue12/05/24 at 1709, Anesthesia Intraprocedure Given12/05/2024 12:19 PM EDT25 jgsDtyef76/22/2025 12:00 PM EDT25 mcgGiven 12/05/2024 11:26 AM EDT50 mcg fluorescein injection INTRAVENOUS, NEEDED, Starting on Tue12/05/24 at 1336, Until Tue12/05/24 at 1709, Anesthesia Intraprocedure Given12/05/2024 1:36 PM EDT25 mg heparin 5,000 Units injection 5,000 Units, SUBCUTANEOUS, ONCE, 1 dose, On Tue12/05/24 at 1000, SEND WITH PATIENT TO OR Day of Surgery Pre Op Order, Preprocedure Given12/05/2024 11:35 AM EDT5,000 Units lactated ringers iv infusion INTRAVENOUS, X (ONE-STEP ONLY) CONTINUOUS PRN, Starting on Tue12/05/24 at 1114, Until Tue12/05/24at 1709, Anesthesia Intraprocedure New Bag/Syringe/Zamjlg3812/05/2024 11:14 AM EDT lactated ringers iv infusion INTRAVENOUS, X (ONE-STEP ONLY) CONTINUOUS PRN, Starting on Tue12/05/24 at 1145, Until Tue12/05/24at 1709, Anesthesia Intraprocedure New Bag/Syringe/Wxfdbo1912/05/2024 11:45 AM EDT lidocaine (PF) 20 mg/mL (2 %) injection (XYLOCAINE) INTRAVENOUS, NEEDED, Starting on Tue12/05/24 at 1126, Until Tue12/05/24 at 1709, Anesthesia Intraprocedure Given12/05/2024 11:26 AM GCT499 mg metroNIDAZOLE iv piggyback 500 mg in NaCl (iso-osmotic) 100 mL (FLAGYL) 500 mg, INTRAVENOUS, at 200 mL/hr, Administer over 30 Minutes, PRE-OP ONCE, 1 dose, On Tue12/05/24at 1000, Antimicrobial indication: Prophylaxis, Preprocedure Given12/05/2024 11:48 AM DZE130 mg midazolam (PF) injection (VERSED) INTRAVENOUS, NEEDED, Starting on Tue12/05/24 at 1113, Until Tue12/05/24 at 1709, Anesthesia Intraprocedure Given12/05/2024 11:13 AM EDT2 mg ondansetron (PF) injection (ZOFRAN) INTRAVENOUS, NEEDED, Starting on Tue12/05/24 at 1316, Until Tue12/05/24 at 1709, Anesthesia Intraprocedure Given12/05/2024 1:16 PM EDT4 mg propofol infusion (DIPRIVAN) INTRAVENOUS, X (ONE-STEP ONLY) CONTINUOUS PRN, Starting on Tue12/05/24 at 1157, Until Tue12/05/24at 1709, Anesthesia Intraprocedure Rate/Dose Safgut3312/05/2024 1:23 PM HXB728 mcg/kg/min58.8 mL/hrRate/Dose Change 12/05/2024 1:16 PM MVM084 mcg/kg/min73.5 mL/hrNew Bag/Syringe/Xmaupl3212/05/2024 11:57 AM EDT50 mcg/kg/min29.4 mL/hr rocuronium injection INTRAVENOUS, NEEDED, Starting on Tue12/05/24 at 1149, Until Tue12/05/24 at 1709, Anesthesia Intraprocedure Given12/05/2024 12:16 PM EDT10 gtNaffh9612/05/2024 11:49 AM EDT20 mgGiven 12/05/2024 11:27 AM EDT70 mg sugammadex injection (BRIDION) INTRAVENOUS, NEEDED, Starting on Tue12/05/24 at 1342, Until Tue12/05/24 at 1709, Anesthesia Intraprocedure Given12/05/2024 1:42 PM WMY153 mgdocumented in this encounter Care Teams Team MemberRelationshipSpecialtyStart DateEnd Date Carolin Roca MD [address] [place] [address] PCP - GeneralFamily Xeyejawa42/9/[address] APRN [address] [place], [place] [phone] ReferringFamily Hiueqmfb27/9/24documented as of this encounter
[2024-12-07] VITALS (71 sets, daily range): BP systolic 120–148; BP diastolic 62–98; PULSE 68–110; TEMP 36.4; O2SAT 91–100; BMI 34.9
--- NOTE | 2024-12-07 08:58 | CT_ITS ---
The [address] [address] Patient Name: ADNRIA DANGELO MRN: [id number] date: 1985 Sex: F Assigned Patient Location: ER Current Patient Location: Accession/Order Number: [id number] Exam Date: 12/07/2024 10:00 Report Date: 12/07/2024 10:53 At the request of: KATE CHANCE DO Procedure: CT abdomen pelvis w con CT ABDOMEN AND PELVIS WITH CONTRAST COMPARISON: None CLINICAL DATA: Lower abdominal pain, nausea and difficulty urinating since yesterday. Laparoscopic total hysterectomy 2 days ago. Elevated creatinine. Spiral images were obtained through the abdomen and pelvis following 100 ML of Visipaque 270. This CT exam was performed using one or more following dose reduction techniques: Automated exposure control, adjustment of the mA and/or kV according to patient size, or use of iterative reconstruction technique. Limited cuts through the lung bases show bilateral breast prostheses. There is a trace amount of pleural fluid bilaterally and lower lobe atelectasis. The heart is borderline prominent. There are multiple scattered hepatic hypodensities. The largest is posteriorly on the right measuring 5 cm in size. A couple areas suggests potential peripheral nodular enhancement. The differential includes cysts and hemangiomas. A small amount of focal fat is also suspected near the fossa of the ligamentum teres. No calcified gallstones are noted. The spleen, pancreas and adrenal glands are no acute findings. There are symmetric renal nephrograms, without hydronephrosis. A small 3-4 mm stone is visualized at the upper pole of the right kidney. The abdominal aorta is normal caliber. No enlarged lymph nodes are seen. There is a small amount of perihepatic and perisplenic fluid. This extends into the paracolic gutter on the left. There is a tiny umbilical hernia containing fat. No free air is noted. There is subcutaneous edema at the lateral abdomen on both sides. There is also low density intramuscular fluid within the lower chest and right lateral abdominal wall extending all the way down to the suprapubic region anteriorly. There are no significant hyperdense components or hematocrit level. The bony structures are intact. Images through the pelvis show stool within the cecum and rectosigmoid colon. There is air within the remainder of the sigmoid colon. No diverticular disease is noted. The small bowel loops are not dilated. There is a small amount of free pelvic fluid. The uterus is surgically absent. There is no large pelvic hematoma or suspected abscess. The urinary bladder contains air which is probably introduced iatrogenically. CT/CT abdomen pelvis w con IMPRESSION: BIBASILAR PLEURAL-PARENCHYMAL CHANGES. HEPATIC CYSTS AND/OR HEMANGIOMAS. RIGHT NEPHROLITHIASIS. NO BOWEL OR URINARY TRACT OBSTRUCTION. MILD ABDOMINAL AND PELVIC FREE FLUID. POSTOPERATIVE CHANGES OF HYSTERECTOMY, WITHOUT PROMINENT HEMATOMA OR SUSPECTED ABSCESS. FLUID COLLECTION WITHIN THE RIGHT LOWER CHEST, ABDOMINAL AND PELVIC WALL, PRESUMED TO RELATE TO SURGERY, DESCRIBED. Impression dictated by: Connie Song M.D. 12/07/2024 10:53 AM Dictation Location: [place] [address] Electronically authenticated by: [id number] Y Date: 12/07/2024 10:53
[2024-12-07] MEDS: 0.9 % SODIUM CHLORIDE 1,000 ML 1000 ML IV (09:11)
[2024-12-07] MEDS: HYDROMORPHONE HCL 1 MG/ML CARTRIDGE IV ×3 (09:12→16:50)
--- NOTE | 2024-12-07 09:16 | ED_ITS ---
HPI HPI - General Adult General Chief complaint: Abdominal Pain Stated complaint: ABDOMINAL PAIN Time Seen by Provider: 12/07/24 08:46 Source: patient Mode of arrival: ambulance Limitations: no limitations History of Present Illness HPI narrative: Patient is a 39-year-old female presenting to the emergency department for evaluation of lower abdominal pain. Patient is POD #2 from an elective laparoscopic hysterectomy at the [facility] (prophylactic as she has the BRCA mutation). Patient states that yesterday at 2 PM she went to urinate and experienced sudden onset lower abdominal pain. She tried taking oxycodone at home, however this has not helped her pain. In addition to the lower abdominal pain, she has been nauseous. She has had no vomiting, constipation, or diarrhea . No chest pain or shortness of breath. No fevers or chills. She is otherwise healthy with only history of asthma. Related Data Home Medications ?Medication ?Instructions ?Recorded ?Confirmed albuterol sulfate 90 mcg/actuation 1 puff inhalation Q 8H PRN 12/07/24 12/07/24 aerosol inhaler shortness of breath or wheez ing bupropion HCl 150 mg 24 hr tablet, 150 mg PO BID 12/0712/07/24 extended release estradiol 0.1 mg/24 hr semiweekly 1 patch topical .juan daniel ry other week 12/07/24 12/07/24 transdermal patch fluticasone propionate 50 2 spray intranasal Q12H PRN 12/07/24 12/07/24 mcg/actuation nasal allergy symptoms spray,suspension montelukast 10 mg tablet 10 mg PO DAILY 12/07/2411/15 omeprazole 20 mg capsule,delayed 20 mg PO DAILY 12/07/24 release oxycodone 5 mg tablet 5 mg PO Q8H PRN pain 5 12/07/24 sertraline 50 mg tablet 50 mg PO Q24H 12/07/2412/07 Allergies Allergy/AdvReac Type Severity Reaction Status Date / Time No Known Drug Allergies Allergy Verified 12/07/24 08:46 Opioid HPI Opioid Management Most Recent Opioid Data: Last Pain Scale 8 Today, 12:54 Last APR Pain Assessment Today, 12:54 Review of Systems ROS Status of ROS 10 or more systems reviewed and unremark able except as noted in history and below [facility] Medical History (Updated 12/07/24 @ 14:17 by Shane Acharya DO) Depression ?F32.A - Depression, unspecified (ICD-10) Surgical History (Updated 12/07/24 @ 14:17 by Shane Acharya DO) H/O bilateral mastectomy ?Z90.13 - Acquired absence of bilateral breasts and nipples (ICD-10) H/O: hysterectomy ?Z90.710 - Acquired absence of both cervix and uterus (ICD-10) Social History (Updated 12/07/24 @ 11:47 by Kym Encarnacion RN) Within the past year, how often did you have a drink containing alcohol: never Score interpretation: A score less than 3 is consistent with normal alcohol consumption. Smoking status: Never smoker Non-prescribed substance use: denies use Little interest or pleasure in doing things: not at all Feeling down, depressed, or hopeless: not at all Exam Narrative Exam Narrative: CONSTITUTIONAL: Patient appears generally unwell, answering questions and following commands appropriately, mentating appropriately SKIN: Warm and mildly diaphoretic. EYES: Sclera white. EARS, NOSE, THROAT: Moist oral mucosa. RESPIRATORY: Clear to auscultation bilaterally, no wheezes, crackles, or stridor, no use of accessory muscles CARDIOVASCULAR: Normal rate and regular rhythm. There is no S3, S4, murmur, rub. GASTROINTESTINAL: The abdomen is diffusely tender to palpation, mostly in the suprapubic region. There is positive rebound tenderness. The surgical incision sites appear clean, dry, intact without obvious signs of infection or purulent drainage. MUSCULOSKELETAL: No peripheral edema NEUROLOGIC: Patient is awake and alert. Facies were symmetrical. Constitutional Vital Signs, click to edit/add: Last Vital Signs Temp 97.5 F L 12/07/24 08:46 Pulse 68 12/07/24 13:57 Resp 16 12/07/24 13:57 BP 129/69 12/07/24 13:30 Pulse Ox 95 12/07/24 13:57 O2 Del Method Room Air 12/07/24 13:57 Course Vital Signs Vital signs: Vital Signs Temperature 97.5 F L 12/07/24 08:46 Pulse Rate 76 12/07/24 08:46 Respiratory Rate 22 H 12/07/24 08:46 Blood Pressure 148/98 H 12/07/24 08:46 Pulse Oximetry 97 10/24/25 08:46 Oxygen Delivery Method Room Air 12/07/24 08:46 Temperature 97.5 F L 12/07/24 08:46 Pulse Rate 68 12/07/24 13:57 Respiratory Rate 16 12/07/24 13:57 Blood Pressure 129/69 12/07/24 13:30 Pulse Oximetry 95 12/07/24 13:57 Oxygen Delivery Method Room Air 12/07/24 13:57 Medical Decision Making MDM Narrative Medical decision making narrative: Patient is a 39-year-old female, POD #2 from an elective laparoscopic hysterectomy at the [facility], presenting to the emergency department for evaluation of lower abdominal pain beginning yesterday. Her vital signs on arrival were significant for mild hypertension and tachypnea, otherwise within normal limits. She is afebrile and hemodynamically stable. On examination, she appears generally unwell and mildly diaphoretic. She has diffuse tenderness to palpation about the abdomen, worse in the suprapubic region with positive rebound. Differential diagnosis includes complications from her HILLARY including, but not limited to, ureteral injury, urinary retention, bladder injury, bowel perforation, intra-abdominal abscess/hematoma, or other intra-abdominal pathologies. IV was established and laboratory studies were obtained. CT abdomen/pelvis IV contrast was ordered. She is given 1 L bolus normal saline, IV Zofran, and IV Dilaudid for pain control. Nursing staff was able to obtain ~785cc of dark urine via straight catheterization. Cabrera catheter was placed. Laboratory studies were significant for leukocytosis of 16. Her creatinine is elevated to 3.14 with a normal BUN. This may be related to intrinsic pa thologies or postobstructive uropathy as she was retaining urine. Though she does have a significant ARON, I do believe the benefits of obtaining the CT with contrast is immediately necessary to prevent/rule out potential life-threatening decompensation or delay in emergent treatment. Risk of further renal injury is mitigated with IV fluids. Otherwise, lipase nonelevated. No transaminitis or hyperbilirubinemia. No electrolyte derangements. Urinalysis was positive for blood and proteinuria, no evidence of infection. CT abdomen/pelvis independently reviewed and interpreted by myself and radiology demonstrated postoperative changes of hysterectomy without prominent hematoma or suspected abscess. There is a fluid collection within the right lower chest, abdominal, and pelvic wall - presumed to be related to surgery. Right nephrolithiasis. No bowel or urinary tract obstruction. On reevaluation 2 hours after decompressing her bladder, she is still complaining of pain. An additional 1 mg of IV Dilaudid was given. 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 Given the patient's acute renal failure and persistent postoperative abdominal pain, I do believe she warrants transfer to [facility] where she had her surgery 2 days ago. I did discuss the patient with her dramatic agent, Dr. Gina Cisneros and her DIRECTOR POST, who accepted the transfer. FINAL IMPRESSION: #Acute renal failure #Acute postoperative abdominal pain s/p recent laparoscopic hysterectomy #Acute urinary retention DISPOSITION: Transferred to [facility] CONDITION: Fair Medical Records Medical records reviewed: Yes I reviewed the patient's medical records Lab Data Lab results reviewed: Yes I reviewed the patient's lab results Labs: Lab Results 12/07/24 12/07/24 Range/Units 09:07 09:32 WBC 16.0 H (4.0-11.0) 10^3/uL RBC 4.11 L (4.20-5.40) 10^6/uL Hgb 12.5 (12.0-16.0) g/dL Hct 37.9 (36.0-48.0) % MCV 92.2 (81.0-99.0) fL MCH 30.4 (26.7-34.0) pg MCHC 33.0 (29.9-35.2) g/dL RDW 13.4 (11.0-15.0) % Plt Count 295 (150-450) 10^3/uL MPV 10.6 (9.5-13.5) fL Neut % (Auto) 78.7 H (43.0-75.0) % Lymph % (Auto) 14.8 L (20.5-60.0) % [place] % (Auto) 5.4 (1.7-12.0) % Eos % (Auto) 0.5 L (0.9-7.0) % Baso % (Auto) 0.3 (0.2-2.0) % Neut # (Auto) 12.6 H (1.4-6.5) 10^3/uL Lymph # (Auto) 2.4 (1.2-3.8) 10^3/uL [place] # (Auto) 0.9 H (0.3-0.8) 10^3/uL Eos # (Auto) 0.1 (0.0-0.7) 10^3/uL Baso # (Auto) 0.1 (0.0-0.1) 10^3/uL Abs Immat Gran (auto) 0.05 H (0.00-0.03) 10^3/uL Imm/Tot Granulo (auto) 0.3 (0.0-0.5) % Sodium 140 (136-145) mmol/L Potassium 3.7 (3.5-5.1) mmol/L Chloride 105 (98-107) mmol/L Carbon Dioxide 22.4 (21.0-32.0) mmol/L Anion Gap 16.3 BUN 14.0 (7.0-18.0) mg/dL Creatinine 3.14 H (0.55-1.02) mg/dL Est GFR ( Amer) 20 L (>=60 mL/min/1.73m^2) Est GFR (Non-Af Amer) 16 L (>=60 mL/min/1.73m^2) BUN/Creatinine Ratio 4.5 Glucose 101 (74-106) mg/dL Lactate 0.8 (0.4-2.0) mmol/L Calcium 8.7 (8.5-10.1) mg/dL Total Bilirubin 0.7 (0.2-1.0) mg/dL AST 15 (15-37) U/L ALT 14 (14-59) U/L Alkaline Phosphatase 49 (46-116) U/L Total Protein 6.7 (6.4-8.2) g/dL Albumin 2.9 L (3.4-5.0) g/dL Globulin 3.8 g/dL Albumin/Globulin Ratio 0.8 Lipase 18.0 (16.0-77.0) U/L Urine Color Dk yellow (YELLOW) Urine Clarity Slightly cloudy A (CLEAR) Urine pH 7.0 (5.0-9.0) Ur Specific [place] 1.020 (1.005-1.025) Urine Protein >=300 A (NEG/TRACE) mg/dL Urine Glucose (UA) 100 A (NEGATIVE) mg/dL Urine Ketones Negative (NEGATIVE) mg/dL Urine Occult Blood Large A (NEGATIVE) Urine Nitrite Negative (NEGATIVE) Urine Bilirubin Negative (NEGATIVE) Urine Urobilinogen 0.2 (0.2-1.0) EU/dL Ur Leukocyte Esterase Trace A (NEGATIVE) Urine RBC 50-75 A (0-2) #/HPF Urine WBC 20-50 A (NONE SEEN) #/HPF Ur Squamous Epith Cells Rare (NONE/RARE) #/LPF Urine Crystals None seen (None Seen) #/HPF Urine Bacteria Trace A (NONE SEEN) #/HPF Urine Casts None seen (NONE SEEN) #/LPF Urine Mucus None seen (NONE SEEN) Ur Culture Indicated? [place] [place] Data CT scan - abdomen: Attestation: I personally reviewed and interpreted this imaging study as follows: Radiologist's impression: ITS Impressions Abdomen/Pelvis CT 12/07/24 08:58 IMPRESSION: BIBASILAR PLEURAL-PARENCHYMAL CHANGES. HEPATIC CYSTS AND/OR HEMANGIOMAS. RIGHT NEPHROLITHIASIS. NO BOWEL OR URINARY TRACT OBSTRUCTION. MILD ABDOMINAL AND PELVIC FREE FLUID. POSTOPERATIVE CHANGES OF HYSTERECTOMY, WITHOUT PROMINENT HEMATOMA OR SUSPECTED ABSCESS. FLUID COLLECTION WITHIN THE RIGHT LOWER CHEST, ABDOMINAL AND PELVIC WALL, PRESUMED TO RELATE TO SURGERY, DESCRIBED. Impression dictated by: Connie Song M.D. 12/07/2024 10:53 AM Dictation Location: [place] [address] Electronically authenticated by: [id number] Y Date: 12/07/2024 10:53 Discharge Plan Discharge Chief Complaint: Abdominal Pain Clinical Impression: Abdominal pain, Renal failure, History of hysterectomy, Acute urinary retention Patient Disposition: [facility] Time of Disposition Decision: 13:30 Discharge location: [facility] Condition: Fair Mode of Transportation: EMS
[2024-12-07 09:17] LABS: Hematocrit 37.9 % (36.0-48.0); Hemoglobin 12.5 g/dL (12.0-16.0); Immature Granulocytes Abs Auto 0.05 10^3/uL (0.00-0.03); Immature Granulocytes Pct Auto 0.3 % (0.0-0.5); Lymphocytes Absolute Auto 2.4 10^3/uL (1.2-3.8); Mean Corpuscular HGB Conc 33.0 g/dL (29.9-35.2); Mean Corpuscular Hemoglobin 30.4 pg (26.7-34.0); Mean Corpuscular Volume 92.2 fL (81.0-99.0); Platelet Count 295 10^3/uL (150-450); Red Blood Count 4.11 10^6/uL (4.20-5.40); White Blood Count 16.0 10^3/uL (4.0-11.0)
[2024-12-07 09:29] LABS: Alanine Aminotransferase 14 U/L (14-59); Albumin Globulin Ratio 0.8; Albumin Level 2.9 g/dL (3.4-5.0); Alkaline Phosphatase 49 U/L (46-116); Anion Gap 16.3; Aspartate Amino Transferase 15 U/L (15-37); Blood Urea Nitrogen 14.0 mg/dL (7.0-18.0); Calcium 8.7 mg/dL (8.5-10.1); Carbon Dioxide 22.4 mmol/L (21.0-32.0); Chloride 105 mmol/L (98-107); Estimated GFR (African America 20 (>=60 mL/min/1.73m^2); Estimated GFR (Non-African Ame 16 (>=60 mL/min/1.73m^2); Globulin 3.8 g/dL; Glucose 101 mg/dL (74-106); Lipase 18.0 U/L (16.0-77.0); Potassium 3.7 mmol/L (3.5-5.1); Sodium 140 mmol/L (136-145); Total Protein 6.7 g/dL (6.4-8.2)
[2024-12-07 09:36] LABS: Lactate/Lactic Acid 0.8 mmol/L (0.4-2.0)
[2024-12-07] MEDS: HYDROMORPHONE HCL 0.5 MG/0.5 ML SYRINGE IV (10:16)
[2024-12-07 10:38] LABS: Glucose Urine UA 100 mg/dL (NEGATIVE)
[2024-12-07 10:49] LABS: Cast Seen? NONE SEEN #/LPF (NONE SEEN); Crystals Seen? None Seen #/HPF (None Seen)
[2024-12-07 10:50] LABS: Urine Culture Indicated YES-FRMC
--- OUTSIDE RECORDS SUMMARY | 2024-12-07 11:25 | XMS_ITS | Clinical Summary ---
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 Name Role Phone Carolin Roca MD Primary Care Provider [phone] NP Unavailable [phone] NP Unavailable [phone] Allergies Active AllergyReactionsCriticalityNoted DateCommentsKiwi ExtractDiarrhea,GI intolerance,Itching,Kwtgfkdh65/23/2023Milk (Cow)GI kwwrmeeaaqt17/23/2023 Medications MedicationSigDispense QuantityRefillsLast FilledStart DateEnd DateStatus Multiple Vitamins-Minerals (Multivitamin Gummies Adult) chewable tablet as directed OrallyActive norgestimate-ethinyl estradiol (Ortho Tri-Cyclen,Trinessa) 0.18/0.215/0.25 MG-35 MCG tablet Take 1 tablet by mouth in the morning.12/06/2022ctive loratadine (Claritin Reditabs) 10 MG disintegrating tablet Take 10 mg by mouth DailyActive omeprazole (PriLOSEC) [address] capsule Indications:Globus sensationTake 1 capsule (20 mg) by mouth in the morning. Take before meals. Do not crush or chew.. 90 capsule 11/21/2023ctive montelukast (Singulair) 10 MG tablet Indications:Mild intermittent asthma with acute exacerbation (HCC),Allergic rhinitis, unspecified seasonality, unspecified triggerTake 1 tablet (10 mg) by mouth at bedtime 90 tablet 5Active fluticasone (Flonase) 50 MCG/ACT nasal spray Indications:Allergic rhinitis, unspecified seasonality, unspecified trigger Administer 1 spray into each nostril Daily Shake gently. Before first use, prime pump. After use, clean tip and replace cap. 48 g 5Active albuterol HFA 90 mcg/act inhaler Indications:Mild intermittent asthma with acute exacerbation (HCC)Inhale 2 puffs every 4 (four) hours if needed for wheezing or shortness of breath 18 g [id number] buPROPion XL (Wellbutrin XL) 300 MG 24 hr tablet Indications:Mixed obsessional thoughts and acts,Generalized anxiety disorderTake 1 tablet (300 mg) by mouth in the morning. Do not crush, chew, or split. 90 tablet 5Active sertraline (Zoloft) 50 MG tablet Indications:Generalized anxiety disorderTake 1 tablet (50 mg) by mouth Daily 90 tablet 5Active Active Problems ProblemNoted DateDiagnosed FicyJqrwbrvjfxkg28/03/2023yst of right ovary 12/17/2022Family history of carrier of genetic kcgjmhi7712/17/2022enetic susceptibility to malignant neoplasm of ovary12/17/2022Mild intermittent asthma with acute cverlqutwukc96/03/2023Mild reactive airways ywskvxs3512/17/2022ain in left ankle and joints of left foot12/17/2022eroneal gutooiocwa59/03/2023 Raynaud's disease without mqnredzf89/03/2023Uterine zakqmxo8112/17/2022History of bilateral /29/2018Family history of breast qxrtoz6205/09/2014Genetic susceptibility to malignant neoplasm of dasdeo9205/09/2014BRCA1 genetic carrier 05/09/2014Thyroid nodule Encounters DateTypeDepartmentCare FahyDkjyfzlszcv46/08/2025linisync Result Encounter [facility] Unsolicited Provider, Generic External Data 11/21/2024linisync Result Encounter [facility] External Department Unsolicited Provider, Generic External Data 11/21/2024linisync Result Encounter [facility] External Department Unsolicited Provider, Generic External Data 10/25/2024Results Follow-Up [facility] [address] [place] [address] Brig[facility] Han [facility]10/24/2024 3:45 PM EDTAncillary Procedure [facility] [address] [facility] [address] [place] [address] Thyroid nzlszh9110/24/20245408Pmboiw83/04/2025Refill [facility] [address] [facility] [place] [phone] NP Mild intermittent asthma with acute exacerbation (HCC); Mixed obsessional thoughts and acts ; Generalized anxiety monnwywm28/26/2025linisync Result Encounter [facility] External Department Unsolicited Provider, Generic External Data 09/28/2024 3:00 PM EDTOffice Visit [facility] [address] [place] [address] NP Right foot pain (Primary Dx); Thyroid nodule ; Allergic rhinitis, unspecified seasonality, unspecified trigger; Mild intermittent asthma without complication (HCC); Gastroesophageal reflux disease without esophagitis; Generalized anxiety /15/2025amboo flowsheet [facility] [address] [place] [address] Rose Mary Laen NP 09/28/2024Travelfrom Last 3 Months Immunizations ImmunizationAdministration DatesNext DueInfluenza, injectable, MDCK, preservative free, /30/2023,01/13/2022Influenza, injectable, MDCK, nyustimjaexk36/26/2020Influenza, injectable, qhdeinonigox57/02/2017Influenza, injectable, quadrivalent, preservative free12/27/2020,01/10/2013Influenza, seasonal, injectable, preservative free11/21/2023Influenza, seasonal, intradermal, preservative free11/30/2018Tdap06/17/2021Tetanus toxoid, adsorbed 09/07/2006 Family History Medical HistoryRelationNameCommentsFactor V Leiden deficiencyFatherStroke Maternal GrandfatherDiabetesMaternal GrandmotherLiver diseaseMaternal GrandmotherLung cancerMaternal GrandmotherBreast cancerMothercarcinomatosis omentumMotherOvarian cancerMother's SisterHypertensionPaternal Grandfather DiabetesPaternal GrandmotherGlaucomaPaternal GrandmotherHypertensionPaternal GrandmotherRelationNameStatusCommentsFatherAliveMaternal GrandfatherDeceased Maternal GrandmotherDeceasedMotherAliveMother's SisterPaternal Grandfather DeceasedPaternal Grandmother Social History Tobacco UseTypesPacks/DayYears UsedDateSmoking Tobacco: NeverSmokeless Tobacco: Never Tobacco Cessation:Counseling Given: Not Answered Alcohol UseStandard Drinks/WeekCommentsYes1 (1 standard drink = 0.6 oz pure alcohol)caffeine: 1-2 cups kefelQ4519 Health LiteracyAnswerDate RecordedHow often do you need to have someone help you when you read instructions, pamphlets, or other written material from your doctor or pharmacy?Never 09/28/2024Humiliation, Afraid, Rape, and Kick questionnaireAnswerDate Recorded Within the last year, have you been afraid of your partner or ex-partner?No 09/28/2024Within the last year, have you been humiliated or emotionally abused in other ways by your partner or ex-partner?No09/28/2024Within the last year, have you been kicked, hit, slapped, or otherwise physically hurt by your partner or ex-partner?No09/28/2024Within the last year, have you been raped or forced to have any kind of sexual activity by your partner or ex-partner?No09/28/2024 Social Connection and Isolation PanelAnswerDate RecordedIn a typical week, how many times do you talk on the phone with family, friends, or neighbors?More than three times a week09/28/2024How often do you get together with friends or relatives?More than three times a week09/28/2024How often do you attend mormon or sikh services?1 to 4 times per year09/28/2024Do you belong to any clubs or organizations such as mormon groups, unions, fraternal or athletic groups, or school groups?Yes09/28/2024How often do you attend meetings of the clubs or organizations you belong to?More than 4 times per year09/28/2024re you , , , , never , or living with a partner? 09/28/2024UDIT-CAnswerDate RecordedQ1: How often do you have a drink containing alcohol?2-4 times a month09/28/2024Q2: How many drinks containing alcohol do you have on a typical day when you are drinking?1 or Q3: How often do you have six or more drinks on one occasion?Never09/28/2024Overall Financial Resource Strain (CARDIA)AnswerDate RecordedHow hard is it for you to pay for the very basics like food, housing, medical care, and heating?Not hard at all 09/28/2024PHQ-2AnswerDate RecordedPatient Health Questionnaire-2 Score0 09/28/2024[facility] [place] [facility] - Occupational Stress QuestionnaireAnswerDate RecordedDo you feel stress - tense, restless, nervous, or anxious, or unable to sleep at night because yourmind is troubled all the time - these days?Not at all09/28/2024Exercise Vital SignAnswerDate RecordedOn average, how many days per week do you engage in moderate to strenuous exercise (like a brisk walk)?2 days09/28/2024On average, how many minutes do you engage in exercise at this level?60 min09/28/2024Hunger Vital SignAnswerDate Recorded Within the past 12 months, you worried that your food would run out before you got the money to buymore.Never true09/28/2024Within the past 12 months, the food you bought just didn't last and you didn't have money to get more.Never true 09/28/2024PRAPARE - TransportationAnswerDate RecordedIn the past 12 months, has lack of transportation kept you from medical appointments or from getting medications?No09/28/2024In the past 12 months, has lack of transportation kept you from meetings, work, or from getting things needed for daily living?No 09/28/2024Housing Stability Vital SignAnswerDate RecordedIn the last 12 months, was there a time when you were not able to pay the mortgage or rent on time?No 09/28/2024In the past 12 months, how many times have you moved where you were living?t any time in the past 12 months, were you homeless or living in a long term (including now)?No09/28/2024CommentsUnknownSex and Gender InformationValueDate RecordedSex Assigned at BirthNot on fileLegal SexFemale 04/28/2022 6:54 PM EDTGender IdentityNot on fileSexual OrientationNot on file Last Filed Vital Signs Vital SignReadingTime TakenCommentsBlood Wqdsiedb246/76009/28/2024 3:07 PM EDT Ldctg796609/28/2024 3:07 PM OXCTqwmyrtfheg48.7 ??C (98 ??F)06/26/2024 11:57 AM EDT Respiratory Ylwe414603/21/2022 4:01 PM ESTOxygen Geanipmfzl98%09/28/2024 3:07 PM EDTInhaled Oxygen Concentration--Pgktez22.3 kg (212 lb 3.2 oz)09/28/2024 3:07 PM WECYoapms012.6 cm (5' 6 )06/26/2024 11:57 AM EDTBody Mass Index34.25 06/26/2024 11:57 AM EDT Plan of Treatment DateTypeDepartmentCare Team (Latest Contact Info)Cbkwtfgkjot09/13/2026 9:00 AM ESTOffice Visit [facility] [address] [place] [address], [place] [address] [place] [address] Health MaintenanceDue DateLast AqrsNmoqhosgSftejllgk96/30/202506/ Influenza Vaccine (#1)/08/2023, 01/13/2023, 01/13/2022, Additional history existsPap Smear8010/09/2024, 10/09/2024, 01/02/2019Cervical Cancer Iygzduhjk94/26/2030HPV/Bjrcot03, 01/02/2019, 01/02/2019 Goals GoalPatient Goal TypeAssociated ProblemsRecent ProgressPatient-Stated?Author Help patient manage antidepressant medication Care PlanPatient on antidepressant monitoring Rose Mary Mckeon NP Procedures Procedure NamePriorityDate/TimeAssociated DiagnosisCommentsCCF CANCER AG125 SERPL-VCUZBrrcwxt42/08/2025 9:26 AM EDT [facility] TYPE AND SCREEN,30 ETOHrhzclz40/08/2025 9:26 AM EDT US FEMALE PELVIS KCAANLDO47/08/2025 9:13 AM EDT XR CHEST 2V FRONTAL/LAT11/21/2024 8:21 AM EDT US WCUPCFXGyfqqzj62/10/2025 3:56 PM EDT Thyroid nodule [facility] PAP FLUID CERVICAL GPBUMLDNLJIhpjgnr12/26/2025 4:02 PM EDT [facility] HPV W/GENOTYPE THIN UWPKIbcyvrd44/26/2025 4:02 PM EDT [facility] CANCER AG125 SERPL-UWQFAccwfyd99/26/2025 1:01 PM EDT from Last 3 Months Results * [facility] TYPE AND SCREEN,30 DAY (11/21/2024 9:26 AM EDT)ComponentValueRef RangeTest MethodAnalysis TimePerformed AtPathologist SignatureABOACCFRHPositiveCCF ANTIBODY SCREENNegativeCCFSpecimen (Source)Anatomical Location / Laterality Collection Method / VolumeCollection TimeReceived Time11/21/2024 9:26 AM EDT 11/21/2024 9:26 AM EDT Narrative CLINISYNC - 11/21/2024 10:33 AM EDT Specimen Type: BLOOD SPECIMEN Ordering Facility: [facility] ?Address: [address] [place] [address] [facility] CLIA [id number] [address] [place] [address] [place] Authorizing ProviderResult TypeResult StatusGeneric External Data Provider CLINISYNCFinal ResultPerforming OrganizationAddressCity/State/ZIP CodePhone Number RADHA BREWSTER [address] [place] [address] * [facility] CANCER AG125 SERPL-ACNC (11/21/2024 9:26 AM EDT) Only the most recent of2 resultswithin the time period is included. ComponentValueRef RangeTest MethodAnalysis TimePerformed AtPathologist Signature [facility] CANCER AG125 SERPL-ACNC17<39 U/mLCCFComment: CA 125 test methodology used is the Electrochemiluminescence Immunoassay by [employer]. Results obtained with different methods or kits cannot be used interchangeably. The reference interval is based on the 95th percentile of 240 apparently healthy premenopausal and postmenopausal women. At a cutoff value of 65 U/mL, the test sensitivity to distinguish ovarian carcinoma (FIGO stage I to IV) versus benign gynecological disease is 79%, with a specificity of 82%. Reference: Cancer Antigen 125 (CA 125 II) [package insert V 1.0 Yi]. [employer] [facility], [place], [place] (November 2014) Specimen (Source)Anatomical Location / LateralityCollection Method / Volume Collection TimeReceived Time11/21/2024 9:26 AM EDT1 12:07 PM EDT Narrative CLINDAKS - 11/21/2024 5:19 PM EDT Specimen Type: BLOOD SPECIMEN Ordering Facility: [facility] ?Address: [address] [place] [address] Original Ordering Provider: TRACEY KEANE Authorizing ProviderResult TypeResult StatusGeneric External Data Provider CLINISYNCFinal ResultPerforming OrganizationAddressCity/State/ZIP CodePhone Number RAD[facility] [address] [facility] [address] [place] [id number] * FEMALE PELVIS TRANSVAG (11/21/2024 9:13 AM EDT)Anatomical RegionLaterality ModalityOtherSpecimen (Source)Anatomical Location / LateralityCollection Method / VolumeCollection TimeReceived Time11/21/2024 9:13 AM EDT Narrative 11/21/2024 1:43 PM EDT * * *Final Report* * * DATE OF EXAM: Nov ??2024 ??9:13AM ?? VHU ?? 1060 ??- ??US FEMALE PELVIS TRANSVAG ??/ PROCEDURE REASON: multiple diagnoses ? * * * * Physician Interpretation * * * * EXAMINATION: ?? TRANSVAGINAL AND LIMITED TRANSABDOMINAL FEMALE PELVIC ULTRASOUND CLINICAL HISTORY: ??BRCA1 gene mutation positive TECHNIQUE: Sonography of the pelvis was performed by transvaginal and transabdominal (limited) techniques. ??Images were obtained and stored in a permanent archive. MQ: ??UFP_2021 COMPARISON: 06/14/2024 RESULT: Uterus: -Size: 9.9 x 5.1 x 4.2 cm -Orientation: Anteverted -Endometrial echo complex: Evaluation of the endometrium was adequate. No endometrial abnormality. The endometrial echo complex measured 0.9 cm. -Cervix: Nabothian cysts present, otherwise unremarkable. -Adenomyosis assessment: None -Fibroids: There is 1.7 x 2.2 x 1.8 cm left anterior uterine fibroid, stable. Right Ovary: 2.9 x 1.9 x 2 cm - Normal sonographic appearance with physiologic follicles and a 1.5 x 1.7 x 1.2 cm dominant right ovarian follicle. ??There is interval resolution of 3.9 cm unilocular right ovarian cyst since 06/14/2024. Left Ovary: 3.6 x 2.3 x 1.2 cm - Normal sonographic appearance with physiologic follicles. Free Fluid: No abnormal free fluid is present. IMPRESSION: 1.7 X 2.2 X 1.8 CM LEFT ANTERIOR UTERINE FIBROID, stable. INTERVAL RESOLUTION OF 3.9 CM UNILOCULAR RIGHT OVARIAN CYST SINCE 06/14/2024. Merchandise Shopper: NICKOLAS ?? Transcribe Date/Time: Nov ??2024 ??1:33P Dictated by : MUMTAZ ZAMORA MD This examination was interpreted and the report reviewed and electronically signed by: MUMTAZ ZAMORA MD on Nov ??2024 ??1:41PM ??EST [id number]^AGFA_IDC^SI^ACN Procedure Note Radiology, Radiologist, - 11/21/2024 * * *Final Report* * * DATE OF EXAM: Nov 21 2024 9:13AM VHU 1060 - US FEMALE PELVIS TRANSVAG / PROCEDURE REASON: multiple diagnoses * * * * Physician Interpretation * * * * EXAMINATION: TRANSVAGINAL AND LIMITED TRANSABDOMINAL FEMALE PELVIC ULTRASOUND CLINICAL HISTORY: BRCA1 gene mutation positive TECHNIQUE: Sonography of the pelvis was performed by transvaginal and transabdominal (limited) techniques. Images were obtained and stored in a permanent archive. MQ: UFP_2021 COMPARISON: 06/14/2024 RESULT: Uterus: -Size: 9.9 x 5.1 x 4.2 cm -Orientation: Anteverted -Endometrial echo complex: Evaluation of the endometrium was adequate. No endometrial abnormality. The endometrial echo complex measured 0.9 cm. -Cervix: Nabothian cysts present, otherwise unremarkable. -Adenomyosis assessment: None -Fibroids: There is 1.7 x 2.2 x 1.8 cm left anterior uterine fibroid, stable. Right Ovary: 2.9 x 1.9 x 2 cm - Normal sonographic appearance with physiologic follicles and a 1.5 x 1.7 x 1.2 cm dominant right ovarian follicle. There is interval resolution of 3.9 cm unilocular right ovarian cyst since 06/14/2024. Left Ovary: 3.6 x 2.3 x 1.2 cm - Normal sonographic appearance with physiologic follicles. Free Fluid: No abnormal free fluid is present. IMPRESSION: 1.7 X 2.2 X 1.8 CM LEFT ANTERIOR UTERINE FIBROID, stable. INTERVAL RESOLUTION OF 3.9 CM UNILOCULAR RIGHT OVARIAN CYST SINCE 06/14/2024. Merchandise Shopper: [facility] HOSPITALGeorgiana Transcribe Date/Time: Nov 21 2024 1:33P Dictated by : MUMTAZ ZAMORA MD This examination was interpreted and the report reviewed and electronically signed by: MUMTAZ ZAMORA MD on Nov 21 2024 1:41PM EST [id number]^AGFA_IDC^SI^ACN Authorizing ProviderResult TypeResult StatusGeneric External Data Provider CLINISYNC IMAGINGFinal Result * XR CHEST 2V FRONTAL/LAT (11/21/2024 8:21 AM EDT)Anatomical RegionLaterality ModalityOtherSpecimen (Source)Anatomical Location / LateralityCollection Method / VolumeCollection TimeReceived Time11/21/2024 8:21 AM EDT Narrative 11/21/2024 10:56 AM EDT * * *Final Report* * * DATE OF EXAM: Nov ??2024 ??8:21AM ?? VHX ?? 5291 ??- ??XR CHEST 2V FRONTAL/LAT ??/ PROCEDURE REASON: multiple diagnoses ? * * * * Physician Interpretation * * * * EXAMINATION: ??CHEST RADIOGRAPH (2 VIEW FRONTAL and LATERAL) CLINICAL HISTORY: BRCA1 gene mutation positive in female BRCA1 gene mutation positive in female MQ: ??XC2_6 EXAM DATE/TIME: ??11/21/2024 8:21 AM COMPARISON: ??No relevant prior studies available. RESULT: Lines, tubes, and devices: ??None. Lungs and pleura: ??No consolidation. No lung mass. No pleural effusion. No pneumothorax. Cardiomediastinal silhouette: ??Normal cardiomediastinal silhouette. Bones and soft tissues: ??Unremarkable. IMPRESSION: No acute radiographic abnormality. Merchandise Shopper: NICKOLAS ?? 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 RESULT: Lines, tubes, and devices: None. Lungs and pleura: No consolidation. No lung mass. No pleural effusion. No pneumothorax. Cardiomediastinal silhouette: Normal cardiomediastinal silhouette. Bones and soft tissues: Unremarkable. IMPRESSION: No acute radiographic abnormality. Merchandise Shopper: NICKOLAS Transcribe Date/Time: Nov 21 2024 10:51A Dictated by : YOON LUZ MD This examination was interpreted and the report reviewed and electronically signed by: YOON LUZ MD on Nov 21 2024 10:53AM EST [id number]^AGFA_IDC^SI^ACN Authorizing ProviderResult TypeResult StatusGeneric External Data Provider CLINISYNC IMAGINGFinal Result * US thyroid (10/24/2024 3:56 PM EDT)Anatomical RegionLateralityModalityHead, NeckUltrasoundSpecimen (Source)Anatomical Location / LateralityCollection Method / VolumeCollection TimeReceived Time10/25/2024 2:29 PM EDT Impressions 10/25/2024 2:32 PM EDT Thyroid nodules as discussed. No nodules requiring further follow-up. Please note that description of thyroid nodules in this report is based on the 2017 Thyroid Imaging, Reporting and Data System (TI- RADS) established by the [employer] to help provide guidance regarding management of thyroid nodules based on their appearance. ??These are offered in an attempt to ??assist ??the referring physician in their decision process and help address the current over diagnosis of thyroid cancer. ??These guidelines are considered recommendations and guidance and do not represent rules or absolute standards of care. ELECTRONICALLY SIGNED BY: Son Sauer MD Narrative 10/25/2024 2:32 PM EDT EXAMINATION: THYROID ULTRASOUND HISTORY: Thyroid nodule. TECHNIQUE: Sonography and Doppler imaging of the thyroid was performed. ??Images were obtained and stored in a permanent archive. ?? COMPARISON: 10/26/2023. RESULT: RIGHT LOBE: 4.2 x 1.4 x 1.7 cm; homogeneous echogenicity, expected vascular flow LEFT LOBE: 3.6 x 1.4 x 1.0 cm; homogeneous echogenicity, expected vascular flow ISTHMUS: 0.2 cm ?? Nodules: -1.4 x 1.0 x 0.9 cm mostly cystic TR 3 nodule within the right thyroid, unchanged from prior ultrasound given difference in measurement technique. No follow-up is needed for TR 3 nodules less than 1.5 cm. -Additional subcentimeter nodules/cysts throughout both lobes, grossly unchanged and not requiring further follow-up. Lymph nodes: No enlarged cervical lymph nodes. Procedure Note Son Sauer MD - 10/25/2024 EXAMINATION: THYROID ULTRASOUND HISTORY: Thyroid nodule. TECHNIQUE: Sonography and Doppler imaging of the thyroid was performed.Images were obtained and stored in a permanent archive. COMPARISON: 10/26/2023. RESULT: RIGHT LOBE: 4.2 x 1.4 x 1.7 cm; homogeneous echogenicity, expectedvascular flow LEFT LOBE: 3.6 x 1.4 x 1.0 cm; homogeneous echogenicity, expected vascularflow ISTHMUS: 0.2 cm Nodules: -1.4 x 1.0 x 0.9 cm mostly cystic TR 3 nodule within the right thyroid,unchanged from prior ultrasound given difference in measurement technique.No follow-up is needed for TR 3 nodules less than 1.5 cm. -Additional subcentimeter nodules/cysts throughout both lobes, grosslyunchanged and not requiring further follow-up. Lymph nodes: No enlarged cervical lymph nodes. IMPRESSION: Thyroid nodules as discussed. No nodules requiring further follow-up. Please note that description of thyroid nodules in this report is based onthe 2017 Thyroid Imaging, Reporting and Data System (TI- RADS) establishedby the [employer] to help provide guidance regardingmanagement of thyroid nodules based on their appearance. These areoffered in an attempt to assist the referring physician in theirdecision process and help address the current over diagnosis of thyroidcancer. These guidelines are considered recommendations and guidance anddo not represent rules or absolute standards of care. ELECTRONICALLY SIGNED BY: Son Sauer MD Authorizing ProviderResult TypeResult StatusSaselect medical [facility], [facility] Ariana NPIM US PROCEDURES Final Result * [facility] PAP FLUID CERVICAL DIAGNOSTIC (10/09/2024 4:02 PM EDT)ComponentValueRef RangeTest MethodAnalysis TimePerformed AtPathologist SignatureCCF CASE REPORT CCFComment: Gynecologic Cytology Report ? Case: [id number] ? Authorizing Provider: ??Tracey Keane, ?Collected: ? 10/09/2024 04:02 PM? REGULATORY COMPLIANCE ENGINEER.STEM SIZER ? Ordering Location: ? Gynecology Oncology ?Received: ?10/09/2024 06:30PM ? First Screen: ?Dina Ulloa CT, ? ASCP ? Specimen: ?Pap Test, ThinPrep, Cervix ? [facility] ADEQUACY INTERPRETATIONCCFComment: Satisfactory for interpretation. No endocervical component [facility] CYTOLOGY INTERPRETATION PAPCCFComment: Negative for intraepithelial lesion or malignancy. at 1500 EDT CLINICAL HISTORY, CYTOLOGY, GYNRoutine ExamCCFCCF [facility]5CCFCCF PAP DISCLAIMER COMMENTThe Pap Smear is a screening test for cervical cancer. False negative results occur with all screening tests, emphasizing the need for rescreening at recommended intervals, and clinical correlation.[facility] PAP REAL ESTATE LAWYER COMMENTThis specimen has been analyzed by the FDA-approved Curasight System, which usesdigital imaging and an enhanced artificial intelligence image analysis algorithm to identify fieldsof interest on the microscopic slide, to assist the collar turner operator and pathologist in evaluating cells on ThinPrep Pap tests. Following analysis, stark ofinterest on the microscopic slide selected by the algorithm are reviewed by a collar turner operator. If a sample requires hierarchical review, the pathologist will review the same stark of interest selected by the algorithm prior to final interpretation. [facility] FINAL PERFORMING LABCCFComment: Technical component, livestock commission agent screening performed at: [facility], [address] [place] [address] ??CLIA: [id number] Diagnostic interpretation performed at: [facility], [address] [place] [address] ?? CLIA# [id number] Financial Services Specialist: Berhane George MD Specimen (Source)Anatomical Location / LateralityCollection Method / Volume Collection TimeReceived Time10/09/2024 4:02 PM EDT10/10/2024 1:41 PM EDT Narrative CLINISYNC - 10/12/2024 3:00 PM EDT Specimen Type: FLUID SPECIMEN Ordering Facility: [facility] ?Address: [address] [place] [address] Original Ordering Provider: TRACEY KEANE Authorizing ProviderResult TypeResult StatusGeneric External Data Provider CLINISYNCFinal ResultPerforming OrganizationAddressCity/State/ZIP CodePhone Number [facility] [address] [place] [address] * [facility] HPV W/GENOTYPE THIN PREP (10/09/2024 4:02 PM EDT)ComponentValueRef Range Test MethodAnalysis TimePerformed AtPathologist SignatureCCF HPV16 AG SPEC QL Not detectedNot detectedCCFCCF HPV18 AG SPEC QLNot detectedNot detectedCCFCCF HPV HR 12 DNA CVX QL JERRY+PROBENot detectedNot detectedCCFComment:High Risk HPV Other Type includes HPV types 31, 33, 35, 39, 45, 51, 52, 56, 58, 59, 66 and 68.Specimen (Source)Anatomical Location / LateralityCollection Method / Volume Collection TimeReceived Time10/09/2024 4:02 PM EDT10/10/2024 1:41 PM EDT Narrative CLINISYNC - 10/12/2024 3:00 PM EDT Specimen Type: FLUID SPECIMEN Ordering Facility: [facility] ?Address: [address] [place] [address] Original Ordering Provider: TRACEY KEANE Authorizing ProviderResult TypeResult StatusGeneric External Data Provider CLINISYNCFinal ResultPerforming OrganizationAddressCity/State/ZIP CodePhone Number [facility] [address] [facility] [address] [place] [address] from Last 3 Months Additional Health Concerns Active ProblemsNoted DateDiagnosed DatePatient on antidepressant monitoring plan 06/20/2024 Insurance * Guarantor: Laverne Guy AAccount TypeRelation to PatientDate of BirthPhone Billing AddressPersonal/EmvrwqSakn76/30/1986 [place] [address] Care Teams Team MemberRelationshipSpecialtyStart DateEnd Date Carolin Roca MD [address] [facility] [place] [address] [facility] - [facility] NP [address] [facility] [place], [place] [phone] PCP - [facility]09/14/[address] NP [address] [facility] [place] [address] Nurse PractitionerBoston Sanatorium Medicine11/08/23
--- OUTSIDE RECORDS SUMMARY | 2024-12-07 11:26 | XMS_ITS | Clinical Summary ---
Author Organization [facility] Address [address] [place] [address] Phone Care Team Providers Care Crumb Packer Name Role Phone Unavailable Primary Care Provider Unavailabl e Social History Tobacco UseTypesPacks/DayYears UsedDateSmoking Tobacco: Never Assessed CommentsUnknownSex and Gender InformationValueDate RecordedSex Assigned at Not on fileLegal MklLnrcdz97/25/2022 10:15 AM ESTGender IdentityNot on file Sexual OrientationNot on file Plan of Treatment Not on file
--- OUTSIDE RECORDS SUMMARY | 2024-12-07 11:26 | XMS_ITS | Encounter Summary ---
Author Organization [facility] Address [facility] [place] [address] Care Team Providers Care Clinical Social Worker Name Role Phone [address] [facility] Unavailable [phone] Carolin Roca MD Primary Care Provider [phone] Source Comments In the event this information is protected by the Federal Confidentiality of Alcohol and Drug AbusePatient Records regulations: The Federal rules restrict any use of the information to criminally investigate or prosecute any alcohol or drug abuse patient.[facility] Encounter Details DateTypeDepartmentCare Team (Latest Contact Info)Bhxlvgalatm94/17/2025Travel Social History Tobacco UseTypesPacks/DayYears UsedDateSmoking Tobacco: NeverSmokeless Tobacco: NeverAlcohol UseStandard Drinks/WeekCommentsYes0 (1 standard drink = 0.6 oz pure alcohol)rarePHQ-2AnswerDate RecordedPHQ-2 icelv123rea Deprivation Index AnswerDate RecordedNational Score (1-100), lower number is lower risk76 07/06/2022State Score (1-10), lower number is lower hcut69607/06/2022ata from: https://www.neighborhoodatlas.medicine.[facility].edu/. Last address used for [address]CommentsNoSex and Gender InformationValueDate RecordedSex Assigned at RiobwAssxgv79/12/2025 12:01 PM EDT Legal RilBgodye46/19/2015 10:08 AM ESTGender WjibpxvyIxlpoz94/12/2025 12:01 PM EDTSexual TnaneprvtmaJnhzwxlu65/10/2020 2:09 PM ESTdocumented as of this encounter Functional Status * Are you deaf or do you have serious difficulty hearing?AnswerDate of EwrzmsqtypReozzwLp94/10/2015 10:15 AM Lia Lang RN * Are you blind or do you have serious difficulty seeing, even when wearing glasses?AnswerDate of NtxalmoysoYvmzieZr16/10/2015 10:15 AM Lia Lang RN * Do you have serious difficulty walking or climbing stairs?AnswerDate of XlflonxjiuJsssyzHc75/10/2015 10:15 AM Lia Lang RN * Do you have difficulty dressing or bathing?AnswerDate of AssessmentAuthorNo 11/23/2014 10:15 AM Lia Lang RN * Because of a physical, mental, or emotional condition, do you have difficulty doing errands alone such as visiting a doctor's office or shopping?AnswerDate of RgplfqkfbgIahaaxUe33/10/2015 10:15 AM Lia Lang RN documented as of this encounter Mental Status * Because of a physical, mental, or emotional condition, do you have serious difficulty concentrating, remembering, or making decisions?AnswerEntry Date RehlflQf28/10/2015 10:15 AM Lia Lang RN documented in this encounter Plan of Treatment DateTypeDepartmentCare Team (Latest Contact Info)Npbphysjlmc72/07/2025 8:15 AM ESTVisit (SP) Office Gynecology [address] [phone] Shelby Crouch, SURGERY AID.CHAIRMAN OF THE BOARD [address] [place] [address] POST OP OK'D WITH BG01/15/2025 3:00 PM ESTVisit (SP) Office Gynecology [address] [place] [address] Shelby Crouch APRN.CHAIRMAN OF THE BOARD [address] [place] [address] POST OP01/17/2025 10:30 AM ESTDistance [facility] [address] [phone] Parrish Chan MD [address] [phone] MENOPAUSE SMA01/18/2025 11:00 AM ESTOffice Visit [facility] Center [address] [place], [place] [phone] Carly Sierra MD [address] [place] [address] annual exam06/03/2025 3:00 PM [facility] [place] [phone] [place] [address] [phone] [place] [address] [place] [address] Ongoing learning about symptoms and guylpgbakc19/21/2026 8:30 [facility] [address] [phone] Parrish Chan MD [address] [address] FOLLOW UPdocumented as of this encounter Visit Diagnoses Not on filedocumented in this encounter Care Teams Team MemberRelationshipSpecialtyStart DateEnd Carolin Roca MD [address] [place] [phone] PCP - GeneralFamily Sdoeimsx45/9/[address] APRN [address] [place] [address] ReferringFamily Ejhegldt57/9/24documented as of this encounter
--- OUTSIDE RECORDS SUMMARY | 2024-12-07 11:26 | XMS_ITS | Clinical Summary ---
Author Organization [facility] Address [address] [place] [address] Care Team Providers Care Hydrometer Finisher Name Role Phone Unavailable Primary Care Provider Unavailabl e Social History Tobacco UseTypesPacks/DayYears UsedDateSmoking Tobacco: Never Assessed CommentsUnknownSex and Gender InformationValueDate RecordedSex Assigned at Not on fileLegal JizXlhvhu24/29/2022 11:14 PM EDTGender IdentityNot on file Sexual OrientationNot on file Plan of Treatment Not on file
--- OUTSIDE RECORDS SUMMARY | 2024-12-07 11:26 | XMS_ITS | Clinical Summary ---
Author Organization [facility] Address [id number] [place] [address] Care Team Providers Care [facility] Medical Biller Name Role Phone Davion Joyner MD Primary Care Provider [phone] Allergies No known active allergies Medications MedicationSigDispense QuantityRefillsLast FilledStart DateEnd DateStatus TRI-SPRINTEC, 28, 0.18/0.215/0.25 mg-35 mcg (28) per tablet 07/06/2018Active Active Problems No known active problems Family History RelationNameStatusCommentsFatherAliveMotherAlive Social History Tobacco UseTypesPacks/DayYears UsedDateSmoking Tobacco: NeverSmokeless Tobacco: NeverChildcareAnswerDate NlbbxamlWgjzofowdFnkznoi78/05/2019EmploymentAnswerDate OtjmkpicIdfuhnjnxmQxdovtw39/05/2019Purpose - LifeAnswerDate RecordedPurpose and direction in vcakGsidmii54/11/2021CommentsNoSex and Gender Information ValueDate RecordedSex Assigned at BirthNot on fileLegal NcdLczeoy15/06/2015 11:42 AM EDTGender IdentityNot on fileSexual OrientationNot on file Last Filed Vital Signs Vital SignReadingTime TakenCommentsBlood Vbpozseo077/6706 8:34 AM EDT Jkxmp8118 8:34 AM LRKMkhohqxgnsl54.1 ??C (98.7 ??F)07/19/2018 8:34 AM EDTRespiratory Vjxj4434 8:34 AM EDTOxygen Nrwtmvofzj68%07/19/2018 8:34 AM EDTInhaled Oxygen Concentration--Bztrzg90.8 kg (187 lb)07/19/2018 8:34 AM EDT Nxztic099.9 cm (5' 0.6 )07/19/2018 8:34 AM EDTBody Mass Index35.8007/19/2018 8:34 AM EDT Plan of Treatment Health MaintenanceDue DateLast DoneCommentsDepression Ztwkqrmvu85/30/1997Tobacco Gtvmxstra88/30/1997Adult BMI Ecypmhoef81/30/2003DTaP,Tdap and Td Vaccines (1 - Tdap)10/14/2003Pap Smear2005Influenza Fafoguz5310/15/2024 Medical Devices Not on file Insurance * Guarantor: Laverne DangeloAccount TypeRelation to PatientDate of BirthPhone Billing AddressPersonal/RgferlQmoj72/30/1986 [facility] [place] [address] MemberSubscriberPlan / Payer (Effective 2017-Present)Name:Laverne Dangelo Relation to Subscriber:SpouseName:ISAAC DANGELO Date of :1983 (Home) Address: [facility] [place] [address] Payer ID:Not on file Group ID:[id number] Type:Not on file Address: [address] [id number] Care Teams Team MemberRelationshipSpecialtyStart DateEnd Davion Joyner MD [facility] [place] [address] PCP - GeneralFamily Medicine07/19/18
--- OUTSIDE RECORDS SUMMARY | 2024-12-07 11:26 | XMS_ITS | Clinical Summary ---
Author Organization [facility] Address [address] [place] [address] Care Team Providers Care Hand Sander Name Role Phone BuckyRose Mary hernandez Jeffery SOTO Unavailable [phone] Carolin Roca MD Primary Care Provider [phone] Allergies Active AllergyReactionsCriticalityNoted DateCommentsKiwiDiarrhea,GI Upset, Itching,Swelling,Znuxpuni14/23/2023MilkGI Upset,Swmwafhdeqb14/23/2023 Medications MedicationSigDispense QuantityRefillsLast FilledStart DateEnd DateStatus ALBUTEROL INHALATION Inhale 1 Puff as instructed as needed.Active sertraline (ZOLOFT) 50 mg tablet Take 50 mg by mouth every morning.Active omeprazole (PRILOSEC) 20 mg capsule Take 20 mg by mouth.4Active norgestimate-ethinyl estradiol 0.18/0.215/0.25 mg-0.035mg (28) tablet Indications:Encounter for initial prescription of contraceptive pillsTake 1 tablet by mouth once daily. 84 tablet 5Active fluticasone (FLONASE ALLERGY RELIEF) 50 mcg/actuation nasal spray Use 2 sprays in each nostril once daily.Active buPROPion SR (WELLBUTRIN SR) 100 mg 12 hr tablet Take 50 mg by mouth two times a day.Active montelukast (SINGULAIR) 10 mg tablet Take 10 mg by mouth daily at bedtime.Active estradiol (VIVELLE-DOT) 0.1 mg/24 hr patch Apply 1 patch as directed two times a week. 24 patch 5Active polyethylene glycol 3350 (MIRALAX PO) Take by mouth.Active oxyCODONE IR (ROXICODONE) 5 mg immediate release tablet Indications:BRCA1 gene mutation positive in femaleTake 1 tablet by mouth every 8 hours as needed for pain for up to 3 days. 9 tablet 12/05/2024 4:02 PM EDT1515Active Active Problems ProblemNoted DateDiagnosed DateMild intermittent asthma without complication 11/30/2024Obesity, Class I, BMI 30-34.91Gastroesophageal reflux disease 11/30/2024PONV (postoperative nausea and vomiting)11/30/2024S/P bilateral /29/2018Family history of breast dflibw6705/09/2014BRCA1 genetic oqjygwz4605/09/2014 Encounters DateTypeDepartmentCare DlfgDgwlpzhlmkt29/24/2025Telephone Gynecology [address] [place] [address] Carmen Cunningham RN Post Op Follow Up12/05/2024 11:14 AM EDTAnesthesia Event [facility] Operating Room [address] [place] [address] Charlie Ferreira, DO Coffman, Erendira, METROLOGIST 12/05/2024 9:50 AM EDT - 12/05/2024 1:30 PM EDTSurgery [facility] Operating Room [address] [place] [address] Gina Red MD LAPAROSCOPIC HYSTERECTOMY TOTAL FOR UTERUS 250 G OR LESS W/REMOVAL TUBE(S) AND/OR OVARY(S)12/05/2024 8:10 AM EDT - 12/05/2024 5:06 PM EDTHospital Encounter [facility] Operating Room [address] [place] [address] Gina Red MD BRCA1 gene mutation positive in female [Z15.01, Z15.02, Z15.09], Ovarian cyst, right [N83.201], Preop examination [Z01.818] Discharge Disposition: Home12/05/20241626Cxivei30/17/2025 8:40 AM EDTPAT Pre Anesthesia [address] [place] [address] Preop examination (Primary Dx); BRCA1 gene mutation positive in female; Ovarian cyst, right; Mild intermittent asthma without complication (HCC); Gastroesophageal reflux disease, unspecified whether esophagitis present; Obesity, Class I, BMI 30-34.9; PONV (postoperative nausea and vomiting)11/30/20244810Flsqps78/15/2025Telephone Gynecology [address] [place] [address] Phylicia Mcleod RN Pre-Op Wsqtjeno42/12/2025 Get Medical Advice Gynecology Oncology [address] [place] [address] Gina Red MD Rnxkvbypfv41/09/2025 Patient Msg Pre Anesthesia [address] [place] [address] Provider, [facility] PACC appt check in11/21/2024 8:14 AM EDT - 11/21/2024 11:59 PM EDTHospital Encounter [facility] Radiology General [address] [place] [address] BRCA1 gene mutation positive in female [Z15.01, Z15.02, Z15.09, Z15.060, Z15.05, Z15.068, Z15.89] Discharge Disposition: Home11/21/2024 8:13 AM EDTHospital Encounter [facility] Radiology Ultrasound [address] [place] [address] BRCA1 gene mutation positive in female [Z15.01, Z15.02, Z15.09, Z15.060, Z15.05, Z15.068, Z15.89] Discharge Disposition: Home11/21/20242960Tllbre92/25/2025 Patient Msg Login Only Provider, [facility]11/07/2024 9:00 AM EDTOffice Visit [facility] [address] [address] Parrish Chan MD Menopausal and perimenopausal disorder (Primary Dx); BRCA1 genetic carrier; S/P bilateral nbhbfefuvf20/24/2025 Patient Msg [facility] [address] [address] Parrish Chan MD my contact info11/02/2024 Patient [facility] Gynecology Oncology [address] [place] [address] Gina Red MD Appointment Cancellation Vvkmqfx3011/02/2024Telephone Obstetrics/Gynecology [address] [address] Gina Red MD Schedule Gvrxzxy6311/01/2024 Get Medical Advice Gynecology Oncology [address] [place] [address] Gina Red MD Surgery 12/05/2508 Patient [facility] Gynecology Oncology [address] [place] [address] Gina Red MD Appointment Cancellation Jnugbyw2010/23/2024Telephone [facility] [address] [place] [address] Gina Red MD Follow Up Phone Call; Schedule Lcrzogl9310/23/2024 Patient [facility] [address] [place] [address] Provider, Ccf ZQPVYCK4210/12/2024Results Follow-Up Gynecology Oncology [address] [place] [address] Tracey Hernandez, MECHANICS SUPERVISOR.SWING RIDE OPERATOR 10/10/2024Results Follow-Up Gynecology Oncology [address] [place] [address] Shana Burrell, MECHANICS SUPERVISOR.SWING RIDE OPERATOR 10/09/2024 1:30 PM EDTVisit (SP) Office Gynecology Oncology [address] [place] [address] Gina Red MD BRCA1 gene mutation positive in female (Primary Dx); Ovarian cyst, right; Preop kjzicskuodj75/26/2025 Get Medical Advice Gynecology Oncology [address] [place] [address] Gina Red MD [id number]/9658Fvzjyj84/25/2025 Patient [facility] Gynecology Oncology [address] [place] [address] Gina Red MD Appointment Cancellation Jlyglws2409/12/2024 Get Medical Advice Gynecology Oncology [address] [place] [address] Gina Red MD Mom has carcinomatosis omentumfrom Last 3 Months Family History Medical HistoryRelationCommentsClotting DisorderFatherFactor 5FatherAliveBreast CancerMaternal Aunt 1Deceased; Great AuntOvarian cancerMaternal Aunt 2Deceased; maternal great auntStrokeMaternal GrandfatherTIAMaternal GrandfatherAliveColon CancerMaternal GrandmotherDeceased; Great GrandmotherLung CancerMaternal GrandmotherDeceasedBreast CancerMotherAliveMelanomaMotherBreast CancerOther 1 Alive; 2nd cousin, maternalBreast CancerOther 2Alive, 2nd cousin, maternal RelationStatusCommentsFatherAliveMaternal Aunt 1DeceasedMaternal Aunt 2Deceased Maternal GrandfatherMaternal GrandmotherDeceasedMotherAliveOther 1AliveOther 2 Alive Social History Tobacco UseTypesPacks/DayYears UsedDateSmoking Tobacco: NeverSmokeless Tobacco: Never Tobacco Cessation:Counseling Given: Not Answered Alcohol UseStandard Drinks/WeekCommentsYes0 (1 standard drink = 0.6 oz pure alcohol)rarePHQ-2AnswerDate RecordedPHQ-2 mlyoc348rea Deprivation Index AnswerDate RecordedNational Score (1-100), lower number is lower risk76 07/06/2022State Score (1-10), lower number is lower wdnq0453Data from: https://www.neighborhoodatlas.[facility].edu/. Last address used for btotjktowcv[address]07/06/2022CommentsNoSex and Gender InformationValueDate RecordedSex Assigned at PnmxcOaclgl87/12/2025 12:01 PM EDT Legal AaxEcrvqq23/19/2015 10:08 AM ESTGender YivxrzkeJxxong40/12/2025 12:01 PM EDTSexual WoaxjzmivluHqvonyaf93/10/2020 2:09 PM EST Last Filed Vital Signs Vital SignReadingTime TakenCommentsBlood Efkdbilo370/8610 4:15 PM EDT Ekxsh2542 4:15 PM JZREcuvloprnjq87.2 ??C (97.2 ??F)12/05/2024 4:15 PM EDTRespiratory Phut0320 4:15 PM EDTOxygen Hgnakbdupw40%12/05/2024 4:15 PM EDTInhaled Oxygen Concentration--Iyiuui03 kg (216 lb 0.8 oz)11/30/2024 8:33 AM EZMBfdfhj676.7 cm (5' 6.42 )11/30/2024 8:33 AM EDTBody Mass Index34.43 11/30/2024 8:33 AM EDT Plan of Treatment DateTypeDepartmentCare Team (Latest Contact Info)Ryaldogqjfy78/07/2025 8:15 AM ESTVisit (SP) Office Gynecology [address] [place] [address] Shelby Crouch, MECHANICS SUPERVISOR.SWING RIDE OPERATOR [address] [place] [address] POST OP OK'D WITH BG01/15/2025 3:00 PM ESTVisit (SP) Office Gynecology [address] [place] [address] Shelby Crouch, MECHANICS SUPERVISOR.SWING RIDE OPERATOR [address] [place] [address] POST OP01/17/2025 10:30 AM ESTDistance Health Gynecology [address] [address] Parrish Chan MD [address] [address] MENOPAUSE SMA01/18/2025 11:00 AM ESTOffice Visit [facility] [address] [address] Carly Sierra MD [address] [place] [address] annual exam06/03/2025 3:00 [facility] [place] [address] [place] [id number] [place] [address] [place] [address] Ongoing learning about symptoms and /21/2026 8:30 AM [facility] [address] [address] Parrish Chan MD [address] [address] FOLLOW UPHealth MaintenanceDue DateLast DoneCommentsAnnual PCP Team Chronic Disease Visit2002Anxiety Rqioxmuzk95/30/2003Depression Xgkyhllqn16/30/2003 HIV Setscnmfh14/30/2003Hepatitis C Uxloqyaev73/30/2003Hepatitis B Vaccine (1 of 3 - 19+ 3-dose series)10/14/2003HPV Vaccine (1 - 3-dose SCDM series)10/14/2011 Covid-19 Vaccine ( season)/07/2020, 03/26/2020, 02/27/2020Influenza Vaccine (#1)/08/2023, 01/13/2023, 01/13/2022, Additional history existsCervical Cancer Txknknwou76, 10/09/2024, 10/09/2024, Additional history existsDTaP,Tdap,Td Vaccine (2 - Td or Tdap) Medical Devices ImplantedTypeAreaManufacturerDevice IdentifierShelf Expiration DateModel / Serial / LotGraft Skn 16x8cm Alloderm Thk - [id number] Implanted:Qty[facility] 1 [facility]raftLeft: BreastLIFECELL 07/14/[id number] / / [id number] Skn 16x8cm Alloderm Thk - [id number] Implanted:Qty: 1 on 11/22/2014 [facility] BU[facility]INGGraftRight: BreastLIFECELL 06/13/[id number] / / [id number] Tiss 450ml Styl 9200 Txt M - [id number] Implanted:Qty: 1 on 11/22/2014 [facility]INGMammary / BreastLeft: Breast [employer]09/13/[id number] / [id number] / [id number] Tiss 450ml Styl 9200 Txt M - [id number] Implanted:Qty: 1 on 11/22/2014 [facility]mary / BreastRight: Breast [employer]09/13/[id number] / [id number] / [id number] Memorygel Cohesive I 12.5cm P6.3cm Round Ultra High Profile Breast - [id number] Implanted:Qty: 1 [facility] BreastRight: BreastMENTOR CORP05/29/[id number] / [id number] / [id number] Memorygel Cohesive I 12.5cm P6.3cm Round Ultra High Profile Breast - [id number] Implanted:Qty: 1 on 09/30/2015 [facility] / BreastLeft: BreastMENTOR CORP//[id number] / [id number] / [id number] Procedures Procedure NamePriorityDate/TimeAssociated DiagnosisCommentsPERIPHERAL IV HHSAXTBWWRzhmkua30/22/2025 11:45 AM EDT PERIPHERAL IV CBLLPSABKFtsdwaj04/22/2025 11:35 AM EDT UVMQEQHXHXUslceyj23/22/2025 11:29 AM EDT LAPS TOTAL HYSTERECT 250 GM/< W/RMVL TUBE/OVARY12/05/2024 10:54 AM EDT BRCA1 gene mutation positive in female Ovarian cyst, right Preop examination CONFIRM BLOOD RIGPLYLG16/22/2025 10:00 AM EDT BASIC METABOLIC MTXLNLdsjioj36/17/2025 9:23 AM EDT Preop examination COMPLETE BLOOD LMUKUYmijtri22/17/2025 9:23 AM EDT Preop examination ECG VQDNWVZZBosqifr05/17/2025 8:42 AM EDT BRCA1 gene mutation positive in female Ovarian cyst, right Preop examination TYPE + SCREEN,30 KSMErofoye98/08/2025 9:26 AM EDT BRCA1 gene mutation positive in female Ovarian cyst, right Preop examination CA 125 MWBVmbvplw02/08/2025 9:26 AM EDT BRCA1 gene mutation positive in female Ovarian cyst, right US FEMALE PELVIS TIPHMLHDDqrzdsg49/08/2025 9:13 AM EDT BRCA1 gene mutation positive in female Ovarian cyst, right XR CHEST 2V FRONTAL/NDBJnusvjl60/08/2025 8:21 AM EDT BRCA1 gene mutation positive in female Ovarian cyst, right Preop examination HIGH RISK HUMAN PAPILLOMA VIRUS (HPV), PCR FOR DETECTION AND GENOTYPINGRoutine 10/09/2024 4:02 PM EDT BRCA1 gene mutation positive in female PAP JQIRDxdledj68/26/2025 4:02 PM EDT BRCA1 gene mutation positive in female CA 125 DPLPhayacj87/26/2025 1:01 PM EDT Ovarian cyst, right BRCA1 gene mutation positive in female from Last 3 Months Results * PERIPHERAL IV PLACEMENT (12/05/2024 11:45 AM EDT) Narrative Erendira Coffman CRNA - 12/05/2024 11:45 AM EDT Erendira Coffman CRNA 12/05/2024 12:34 PM PIV General Information Procedure Start Time/Medication Administration: 12/05/2024 11:45 AM Procedure End Time: 12/05/2024 11:45 AM Patient Location: ??OR Staffing METROLOGIST: Erendira Coffman CRNA Performed by: BIN Preparation Sterility Preparation: hand hygiene performed prior to procedure, surgical cap used, mask used ?? Site Prep: chlorhexidine Procedure Details Indication: need for IV access Needle Size/Type: 18 gauge angiocath Orientation: ??Left Location: ??Hand Imaging Guidance Used: ??No Authorizing ProviderResult TypeResult Emmanuelle Ferreira DOANESTHESIA ORDERABLES Final Result * PERIPHERAL IV PLACEMENT (12/05/2024 11:35 AM EDT) Erendira Rose CRNA - 12/05/2024 11:35 AM EDT Erendira Coffman CRNA 12/05/2024 12:35 PM PIV General Information Procedure Start Time/Medication Administration: 12/05/2024 11:35 AM Procedure End Time: 12/05/2024 11:35 AM Patient Location: ??OR Staffing METROLOGIST: Erendira Coffman CRNA Performed by: BIN Preparation Sterility Preparation: hand hygiene performed prior to procedure, surgical cap used, mask used ?? Site Prep: chlorhexidine Procedure Details Indication: need for IV access Needle Size/Type: 18 gauge angiocath Orientation: ??Right Location: ??Hand Imaging Guidance Used: ??No Authorizing ProviderResult TypeResult Emmanuelle Ferreira DOANESTHESIA ORDERABLES Final Result * Airway (12/05/2024 11:29 AM EDT) Erendira Rose CRNA - 12/05/2024 11:29 AM EDT Erendira Coffman CRNA 12/05/2024 12:47 PM Airway General Information Procedure Start Time/Medication Administration: 12/05/2024 11:29 AM Procedure End Time: 12/05/2024 11:29 AM Patient location during procedure: OR Timeout Performed Pre-procedure: timeout performed Consent Obtained: Yes Patient identity confirmed: arm 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 anesthesia circuit Patient position: sniffing Method: asleep Cricoid Pressure: No Manual In-Line Stabilization: No Difficult Mask: No Final Airway Details Final airway type: endotracheal airwayFinal Endotracheal Airway: ETT Cuffed: yes Successful intubation technique: video laryngoscopy Devices used: Aipai Endotracheal tube insertion site: oral Blade: Anika Blade size: #3 ETT size (mm): 7.0 Measured from: lips Measurement (cm): 21 Placement verified by: capnometry Cormack-Lehane Classification: grade I - full view of glottis Number of attempts at approach: 1 Failed airway: no Unrecognized esophageal intubation: no Airway not difficult Authorizing ProviderResult TypeResult StatusJoStony Brook [facility] DOANESTHESIA ORDERABLES Final Result * CONFIRM BLOOD TYPE (12/05/2024 10:00 AM EDT)ComponentValueRef RangeTest Method Analysis TimePerformed AtPathologist QeyolebmyMXDW29/22/2025 10:57 AM EDT [facility]Rh(D)Qeoxljma73/22/2025 10:57 AM EDTFNE[facility] Specimen (Source)Anatomical Location / LateralityCollection Method / Volume Collection TimeReceived TimeBloodBLOOD SPECIMEN / UnknownVenipuncture / Vtfjivh4412/05/2024 10:00 AM EDT1 10:09 AM EDT Narrative Authorizing ProviderResult TypeResult StatusSouth [facility] BANKFinal ResultPerforming OrganizationAddressCity/State/ZIP CodePhone Number [facility] [address] * COMPLETE BLOOD COUNT (11/30/2024 9:23 AM EDT)ComponentValueRef RangeTest MethodAnalysis TimePerformed AtPathologist SignatureWBC9.133.70 - 11.00 k/uL 11/30/2024 10:00 AM [facility] LABORATORYRBC4.073.90 - 5.20 m/uL 11/30/2024 10:00 AM [facility] XZKPOWEDTFUbxtpnioca72.611.5 - 15.5 g/dL 11/30/2024 10:00 AM [facility] CUIUNGRXXYCjrhybbcin11.136.0 - 46.0 % 11/30/2024 10:00 AM [facility] TFJQXCYMRWXCC50.680.0 - 100.0 fL 11/30/2024 10:00 AM [facility] LFPKTIPXASWHE50.026.0 - 34.0 pg11/30/2024 10:00 AM [facility] BSTMZAFZYTSZRK32.130.5 - 36.0 g/dL11/30/2024 10:00 AM [facility] LABORATORYRDW-CV13.211.5 - 15.0 %11/30/2024 10:00 AM EDT [facility] LABORATORYPlatelet Kdgra555583 - 400 k/uL11/30/2024 10:00 AM EDT [facility] YYIORDXYNVLTG77.69.0 - 12.7 fL11/30/2024 10:00 AM [facility] LABORATORYAbsolute nRBC<0.01<0.01 k/uL11/30/2024 10:00 AM [facility] LABORATORYSpecimen (Source)Anatomical Location / LateralityCollection Method / VolumeCollection TimeReceived TimeBloodBLOOD SPECIMEN / Unknown Venipuncture / Afbdagv4411/30/2024 9:23 AM EDT1 9:24 AM EDT Narrative Authorizing ProviderResult TypeResult StatusRachel Thomasandra PA-CLABORATORYFinal ResultPerforming OrganizationAddressCity/State/ZIP CodePhone Number [facility] [address] [facility] [place] [address], * BASIC METABOLIC PANEL (11/30/2024 9:23 AM EDT)ComponentValueRef RangeTest MethodAnalysis TimePerformed AtPathologist EbnpbtsqoAobcfmq2901 - 99 mg/dL 11/30/2024 11:15 AM [facility] LABORATORYComment: The [place] Diabetes Association (ADA) provides guidance for cutoff [...] Standards of Medical Care in Diabetes 2016, [place] Diabetes Association. Diabetes Care. 2016.39(Suppl 1). BUN77 - 21 mg/dL11/30/2024 11:15 AM [facility] LABORATORYCreatinine0.86 0.58 - 0.96 mg/dL11/30/2024 11:15 AM [facility] SCOTPSTXVEPkmvvh672674 - 144 mmol/L1 11:15 AM [facility] LABORATORYPotassium4.73.7 - 5.1 mmol/L1 11:15 AM [facility] WDSOEPPTKYUuhatmqh51312 - 107 mmol/L 11/30/2024 11:15 AM [facility] OTTAAXXOQIBM60550 - 30 mmol/L1 11:15 AM [facility] LABORATORYAnion Msi570 - 15 mmol/L1 11:15 AM [facility] LABORATORYCalcium, Total9.78.5 - 10.2 mg/dL11/30/2024 11:15 AM [facility] LABORATORYEstimated Glomerular Filtration Rate88>=60 mL/min/1.73m 11/30/2024 11:15 AM [facility] LABORATORYComment:Estimated Glomerular Filtration Rate (eGFR) [...] VolumeCollection TimeReceived TimeBloodBLOOD SPECIMEN / UnknownVenipuncture / Ybwttiq0411/30/2024 9:23 AM EDT1 9:24 AM EDT Narrative Authorizing ProviderResult TypeResult StatusRachel Halle HOUSER-CLABORATORYFinal ResultPerforming OrganizationAddressCity/State/ZIP CodePhone Number [facility] [address] [facility] [place] [address], [place] * ECG COMPLETE (11/30/2024 8:42 AM EDT)ComponentValueRef RangeTest Method Analysis TimePerformed AtPathologist SignatureVentricular Gjyu17LVZGPWZ CARDIOLOGYAtrial Iqzn48TNRUJWT CARDIOLOGYP-R Ntawdzqm094wuLQWG CARDIOLOGYQRS Tviiagvi46giORYX CARDIOLOGYQT Zokrlylw623twOVPI CARDIOLOGYQTC Calculation (Bazett)441msAVON CARDIOLOGYCalculated P Euew94amefjqwWSPO CARDIOLOGY Calculated R Ripb88zcubjcpYAVP CARDIOLOGYCalculated T Suhn84ckkfsnnZUVQ CARDIOLOGYSpecimen (Source)Anatomical Location / LateralityCollection Method / VolumeCollection TimeReceived Time11/30/2024 8:42 AM EDT Impressions [facility] - 12/01/2024 11:31 AM EDT Normal sinus rhythm Normal ECG No previous ECGs available Confirmed by MOOK ESTEVEZ M.D. ([id number]) on 12/01/2024 11:31:16 AM Narrative [facility] - 12/01/2024 11:31 AM EDT NAME : ANDRIA GUY PID : [id number] : 1985 Gender : Female Race : ORD : [id number] Procedure Date : Nov 30 2024 08:42:10 Edit Date : Dec 01 2024 11:31:18 Diagnosis: Normal sinus rhythm Normal ECG No previous ECGs available Confirmed by MOOK ESTEVEZ M.D. ([id number]) on 12/01/2024 11:31:16 AM Test Reason : HCS Location : 301 : PACC ?? Overread By : MOOK ESTEVEZ M.D. Edited By : MOOK ESTEVEZ M.D. Referred By : GINA RED Acquired by : nv, Authorizing ProviderResult TypeResult StatusMargarete Jeffery Hernandez APRN.CNPEKGFinal ResultPerforming OrganizationAddressCity/State/ZIP CodePhone Number [facility] [address] [facility] [place] [address], * TYPE AND SCREEN,30 DAY (11/21/2024 9:26 AM EDT)ComponentValueRef RangeTest MethodAnalysis TimePerformed AtPathologist JlvvudzqlFKIU13/08/2025 10:33 AM EDTAVON BLOOD BANKRh(D)Jyfyealr46/08/2025 10:33 AM EDTAVON BLOOD BANKAntibody RfqdixRtqhnfpi75/08/2025 10:33 AM EDTAVON BLOOD BANKSpecimen (Source) Anatomical Location / LateralityCollection Method / VolumeCollection Time Received TimeBloodBLOOD SPECIMEN / UnknownVenipuncture / Otxcqki4711/21/2024 9:26 AM EDT1 9:26 AM EDT Narrative Authorizing ProviderResult TypeResult StatusMaralvinaete Jeffery Hernandez APRN.CNPBLOOD BANKFinal ResultPerforming OrganizationAddressCity/State/ZIP CodePhone Number [facility] [address] [facility] [place] [address], [place] * CA 125 (11/21/2024 9:26 AM EDT) Only the most recent of2 resultswithin the time period is included. ComponentValueRef RangeTest MethodAnalysis [place]Per[place] [address]<39 U/mL11/21/2024 5:19 PM EDTCST. RITA'S HOSPITAL LABComment: CA 125 test methodology used is the [...] (CA 125 II) [package insert V 1.0 Romanian]. [facility], [place], [place] (November 2014) Specimen (Source)Anatomical Location / LateralityCollection Method / Volume Collection TimeReceived TimeBloodBLOOD SPECIMEN / UnknownVenipuncture / Unknown 11/21/2024 9:26 AM EDT1 9:26 AM EDT Narrative Authorizing ProviderResult TypeResult StatusMarjose juan Hernandez APRN.SWING RIDE OPERATOR LABORATORYFinal ResultPerforming OrganizationAddressCity/State/ZIP CodePhone Number [facility] [id number] [place] [address], [place] * US FEMALE PELVIS TRANSVAG (11/21/2024 9:13 AM EDT)Anatomical RegionLaterality ModalityPelvisUltrasoundSpecimen (Source)Anatomical Location / Laterality Collection Method / VolumeCollection TimeReceived Time11/21/2024 9:13 AM EDT Impressions 11/21/2024 1:43 PM EDT IMPRESSION: 1.7 X 2.2 X 1.8 CM LEFT ANTERIOR UTERINE FIBROID, stable. INTERVAL RESOLUTION OF 3.9 CM UNILOCULAR RIGHT OVARIAN CYST SINCE 06/14/2024. Medicine Technologist: NICKOLAS ?? Transcribe Date/Time: Nov?2024 ??1:33P Dictated by : MUMTAZ ZAMORA MD This examination was interpreted and the report reviewed and electronically signed by: MUMTAZ ZAMORA MD on Nov ??2024 ??1:41PM ??EST Narrative 11/21/2024 1:43 PM EDT * * [...] Fluid: No abnormal free fluid is present. Procedure Note Provider, [facility] [place] - 11/21/2024 * * *Final Report* * * DATE OF EXAM: Nov 21 2024 9:13AM U 1060 - US FEMALE PELVIS TRANSVAG / [...] Fluid: No abnormal free fluid is present. IMPRESSION IMPRESSION: 1.7 X 2.2 X 1.8 CM LEFT ANTERIOR UTERINE FIBROID, stable. INTERVAL RESOLUTION OF 3.9 CM UNILOCULAR RIGHT OVARIAN CYST SINCE 06/14/2024. Medicine Technologist: NICKOLAS Transcribe Date/Time: Nov 21 2024 1:33P Dictated by : MUMTAZ ZAMORA MD This examination was interpreted and the report reviewed and electronically signed by: MUMTAZ ZAMORA MD on Nov 21 2024 1:41PM EST Authorizing ProviderResult TypeResult StatusMaralvinaete Jeffery Hernandez APRN.CNPUS-PAMA Final Result * XR CHEST 2V FRONTAL/LAT (11/21/2024 8:21 AM EDT)Anatomical RegionLaterality ModalityChestOtherSpecimen (Source)Anatomical Location / LateralityCollection Method / VolumeCollection TimeReceived Time11/21/2024 8:21 AM EDT Impressions 11/21/2024 10:56 AM EDT IMPRESSION: No acute radiographic abnormality. Medicine Technologist: NICKOLAS ?? Transcribe Date/Time: Nov ??2024 10:51A Dictated by : YOON ??MD NATTY This examination was interpreted and the report reviewed and electronically signed by: YOON LUZ MD on Nov ??2024 10:53AM ??EST Narrative 11/21/2024 10:56 AM EDT * * *Final Report* * * DATE OF EXAM: Nov ??2024 ??8:21AM ?? VHX ?? 5291 ??- ??XR CHEST 2V FRONTAL/LAT ??/ PROCEDURE REASON: multiple diagnoses ? * * * * Physician Interpretation * * * * EXAMINATION: CHEST RADIOGRAPH (2 VIEW FRONTAL & LATERAL) CLINICAL HISTORY: BRCA1 gene mutation positive in female BRCA1 gene mutation positive in female MQ: ??XC2_6 EXAM DATE/TIME: ??11/21/2024 8:21 AM COMPARISON: ??No relevant prior studies available. RESULT: Lines, tubes, and devices: ??None. Lungs and pleura: ??No consolidation. No lung mass. No pleural effusion. No pneumothorax. Cardiomediastinal silhouette: ??Normal cardiomediastinal silhouette. Bones and soft tissues: ??Unremarkable. Procedure Note Provider, [facility] - 11/21/2024 * * *Final Report* * * DATE OF EXAM: Nov 21 2024 8:21AM VHX 5291 - XR CHEST 2V FRONTAL/LAT / PROCEDURE REASON: multiple diagnoses * * * * Physician Interpretation * * * * EXAMINATION: CHEST RADIOGRAPH (2 VIEW FRONTAL & LATERAL) CLINICAL HISTORY: BRCA1 gene mutation positive in female BRCA1 gene mutation positive in female MQ: XC2_6 EXAM DATE/TIME: 11/21/2024 8:21 AM COMPARISON: No relevant prior studies available. RESULT: Lines, tubes, and devices: None. Lungs and pleura: No consolidation. No lung mass. No pleural effusion. No pneumothorax. Cardiomediastinal silhouette: Normal cardiomediastinal silhouette. Bones and soft tissues: Unremarkable. IMPRESSION IMPRESSION: No acute radiographic abnormality. Medicine Technologist: NICKOLAS Transcribe Date/Time: Nov 21 2024 10:51A Dictated by : YOON LUZ MD This examination was interpreted and the report reviewed and electronically signed by: YOON LUZ MD on Nov 21 2024 10:53AM EST Authorizing ProviderResult TypeResult StatusMarjose juan Hernandez APRN.CNPRAD-PAMA Final Result * PAP TEST (10/09/2024 4:02 PM EDT)ComponentValueRef RangeTest MethodAnalysis TimePerformed AtPathologist SignatureCase ReportGynecologic Cytology Report ? Case: [id number] ? Authorizing Provider: ??Tracey Hernandez, ?Collected: ? 10/09/2024 04:02 PM? MECHANICS SUPERVISOR.SWING RIDE OPERATOR ? Ordering Location: ? Gynecology Oncology ?Received: ?10/09/2024 06:30PM ? First Screen: ?Dina Ulloa, CT, ? ASCP ? Specimen: ?Pap Test, ThinPrep, Cervix ? 10/12/2024 3:00 PM [facility] LABSpecimen Adequacy Satisfactory for interpretation. No endocervical pzybdbgap18/29/2025 3:00 PM [facility] InterpretationNegative for intraepithelial lesion or malignancy.10/12/2024 3:00 PM [facility] at 1500 EDTClinical HistoryRoutine Exam 10/12/2024 3:00 PM [facility] LABLMP 3:00 PM [facility] LABPap DisclaimerThe Pap Smear is a screening test for cervical cancer. False negative results occur with all screening tests, emphasizing the need for rescreening at recommended intervals, and clinical correlation.10/12/2024 3:00 PM [facility] LABPAP Warehouse Delivery Manager CommentThis specimen has been analyzed by the FDA-approved SigFigTM System, which usesdigital imaging and an enhanced artificial intelligence image analysis algorithm to identify fieldsof interest on the microscopic slide, to assist the a operator and pathologist in evaluating cells on ThinPrep Pap tests. Following analysis, stark of interest on the microscopic slide selected by the algorithm are reviewed by a a operator. If a sample requires hierarchical review, the pathologistwill review the same stark of interest selected by the algorithm prior to final interpretation.10/12/2024 3:00 PM [facility] LABPerforming LabTechnical component, die repair machinist screening performed at: [facility], [address] [place], [place] [address] CLIA: [id number] Diagnostic interpretation performed at: [facility], [address] [place] [address]# [id number] Seat Covers Trimmer: Berhane George MD10/12/2024 3:[address] [facility] LABSpecimen (Source)Anatomical Location / LateralityCollection Method / VolumeCollection TimeReceived TimeSterile Fluid/Body FluidCERVICAL / UnknownNon Blood / Mxppqde6610/09/2024 4:02 PM EDT10/09/2024 6:30 PM EDT Narrative Authorizing ProviderResult TypeResult StatusMarjose juan Hernandez MECHANICS SUPERVISOR.CNPCYTOLOGY Final ResultPerforming OrganizationAddressCity/State/ZIP CodePhone Number [facility] [address] [place] [address], * HIGH RISK HUMAN PAPILLOMA VIRUS (HPV), PCR FOR DETECTION AND GENOTYPING (10/09/2024 4:02 PM EDT)ComponentValueRef RangeTest MethodAnalysis Time Performed AtPathologist SignatureHigh Risk HPV Type 16 DNANot detectedNot jihnxknj78/29/2025 3:[address] [facility] LABHigh Risk HPV Type 18 DNANot detectedNot aaaopuqz11/29/2025 3:00 PM [facility] LABHigh Risk HPV Other Type DNANot detectedNot jrzpsnly34/29/2025 3:00 PM [facility] LABComment:High Risk HPV Other Type includes HPV types 31, 33, 35, 39, 45, 51, 52, 56, 58, 59, 66 and 68.Specimen (Source)Anatomical Location / LateralityCollection Method / VolumeCollection TimeReceived TimeSterile Fluid/Body FluidCERVICAL / UnknownNon Blood / Unknown 10/09/2024 4:02 PM EDT10/10/2024 1:41 PM EDT Narrative [facility] - 10/12/2024 3:00 PM EDT This test was developed and its performance characteristics determined by [facility]'s Jann Morrell [facility] [place] ([facility]). It has not been cleared or approved by the FDA. [facility] is regulated under CLIA as qualified to perform high-complexity testing. This test is used for clinical purposes. It should not be regarded as investigational or for research. Authorizing ProviderResult TypeResult StatusMarjose juan Hernandez APRN.SWING RIDE OPERATOR LABORATORYFinal ResultPerforming OrganizationAddressCity/State/ZIP CodePhone Number [facility] [address] [place] [address], [place] from Last 3 Months Insurance * Guarantor: Andria Guy AAccount TypeRelation to PatientDate of BirthPhone Billing AddressPersonal/TxrqrlQrus22/30/1986 [facility] [place] [address] Care Teams Team MemberRelationshipSpecialtyStart DateEnd Carolin Roca MD [address] [place] [address] [facility] - [facility] Avokrccz26/9/[address] APRN [address] [place], [place] [id number] ReferringFall River Hospital Vboihbhm78/9/24
--- OUTSIDE RECORDS SUMMARY | 2024-12-07 11:26 | XMS_ITS | Patient Health Record ---
Author Organization [facility] [place] Address [address] [place] [address] Care Team Providers Care Local Operator Name Role Phone Davion Joyner MD Primary Care Provider Aria sweeney Reason For Referral No Information Medications Medication SIG (Take, Route, Frequency, Duration) Notes Start Date End Date Status Trispec SFX Active Social History Tobacco Use: Social History Observation Description Date Details (start date - stop date) Never Smoker NA - NA Tobacco Use/Smoking Question Answer Notes Patient is a nonsmoker Problems Problem Type SNOMED Code ICD Code Onset Dates Problem Status W/U Status Risk Notes Problem Arthralgia of the an kle and/or foot (532696624) Pain in left ankle and joints of left foot (M25.572) ActiveconfirmedProblemPeroneal tendinitis (18334880)Peroneal tendinitis, left leg (M76.72)Activeconfirmed Plan Of Treatment Pending Test Test Name Order Date XR Ankle LT (3 views) * (164) 02/21/2017 Insurance Providers Payer Name Payer Address Payer Phone Subscriber Number Group Number Insured Name Patient Relationship to Insured Coverage Start Date Coverage End Date MMO TPA SUPERMED [address] [address] [place] [phone] [id number] Tony Guy Spouse - patient is the spouse of the insured 7 Medical (General) History Medical History History ICD Code BRCA 1 gene mutation Surgical History Surgery Date(Month/Year) Bilateral prophylactic mastectomy
--- OUTSIDE RECORDS SUMMARY | 2024-12-07 11:26 | XMS_ITS | Encounter Summary ---
Author Organization [facility] Address [address] [place] [address] Care Team Providers Care Rental Management Trainee Name Role Phone [address] Mary [address] Jeffery CHANN Unavailable [phone] Carolin Roca MD Primary Care Provider [phone] Source Comments In the event this information is protected by the Federal Confidentiality of Alcohol and Drug AbusePatient Records regulations: The Federal rules restrict any use of the information to criminally investigate or prosecute any alcohol or drug abuse patient.[facility] Reason for Visit * ReasonCommentsPost Op Follow Up Encounter Details DateTypeDepartmentCare Team (Latest Contact Info)Lkjmvdzrnhv55/24/2025Telephone Gynecology [address] [place] [address] Carmen Cunningham RN Post Op Follow Up Social History Tobacco UseTypesPacks/DayYears UsedDateSmoking Tobacco: NeverSmokeless Tobacco: NeverAlcohol UseStandard Drinks/WeekCommentsYes0 (1 standard drink = 0.6 oz pure alcohol)rarePHQ-2AnswerDate RecordedPHQ-2 qyjre462rea Deprivation Index AnswerDate RecordedNational Score (1-100), lower number is lower risk76 07/06/2022State Score (1-10), lower number is lower nvku7583Data from: https://www.neighborhoodatlas.medicine.[facility].edu/. Last address used for qjkbikgdzwj[address]CommentsNoSex and Gender InformationValueDate RecordedSex Assigned at IyhxnTmagri97/12/2025 12:01 PM EDT Legal DvlYgdzzv81/19/2015 10:08 AM ESTGender WffpoonfPsakct53/12/2025 12:01 PM EDTSexual OfnpfkuypsbRaujjszf70/10/2020 2:09 PM ESTdocumented as of this encounter Functional Status * Are you deaf or do you have serious difficulty hearing?AnswerDate of LhicqxmqsqYlnhqsEk23/10/2015 10:15 AM Lia Lang RN * Are you blind or do you have serious difficulty seeing, even when wearing glasses?AnswerDate of GzijsqragcAmumdrRi74/10/2015 10:15 AM Lia Lang RN * Do you have serious difficulty walking or climbing stairs?AnswerDate of WtvdmgslrzUkpcvwSw62/10/2015 10:15 AM Lia Lang RN * Do you have difficulty dressing or bathing?AnswerDate of AssessmentAuthorNo 11/23/2014 10:15 AM Lia Lang RN * Because of a physical, mental, or emotional condition, do you have difficulty doing errands alone such as visiting a doctor's office or shopping?AnswerDate of UsumochdxtCarfwxRz08/10/2015 10:15 AM Lia Lang RN documented as of this encounter Mental Status * Because of a physical, mental, or emotional condition, do you have serious difficulty concentrating, remembering, or making decisions?AnswerEntry Date JjytvkPd83/10/2015 10:15 AM Lia Lang RN documented in this encounter Miscellaneous Notes * Telephone Encounter - Carmen Cunningham RN - 12/07/2024 9:45 AM EDT LVM for pt to call office for post op follow up. documented in this encounter Plan of Treatment DateTypeDepartmentCare Team (Latest Contact Info)Ifulrpdlygv56/07/2025 8:15 AM ESTVisit (SP) Office Gynecology [address] [place] [address] Shelby Crouch, LEAD GENERATION SPECIALIST.AUTO REFINISHER [address] [place] [address] POST OP OK'D WITH BG01/15/2025 3:00 PM ESTVisit (SP) Office Gynecology [address] [place] [address] Shelby Crouch, LEAD GENERATION SPECIALIST.AUTO REFINISHER [address] [place] [address] POST OP01/17/2025 10:30 AM ESTDistance Health Gynecology [address] [address] Parrish Chan MD [address] [address] MENOPAUSE SMA01/18/2025 11:00 AM ESTOffice Visit Breast Center [address] [address] Carly Sierra MD [address] [place] [address] annual exam06/03/2025 3:00 PM EDTDistance Health Endocrinology [place] [id number] [phone] [place] [address] [place] [address] Ongoing learning about symptoms and psqwnleyny38/21/2026 8:30 AM EDTDistance Health Gynecology [address] [address] Parrish Chan MD [address] [address] FOLLOW UPdocumented as of this encounter Visit Diagnoses Not on filedocumented in this encounter Care Teams Team MemberRelationshipSpecialtyStart DateEnd Date Carolin Roca MD [address] [place] [address] PCP - GeneralFamily Vabdbrdr88/9/[address] APRN [address] [place] [address] ReferringFamily Dslrxwlo68/9/24documented as of this encounter
--- OUTSIDE RECORDS SUMMARY | 2024-12-07 11:26 | XMS_ITS | Encounter Summary ---
Author Organization [facility] Address [address] [place] [address] Care Team Providers Care Chemical Economist Name Role Phone [address] Mary [address] Jeffery ASSISTANT SOFTBALL COACH Unavailable [phone] Carolin Roca MD Primary Care Provider [phone] Source Comments In the event this information is protected by the Federal Confidentiality of Alcohol and Drug AbusePatient Records regulations: The Federal rules restrict any use of the information to criminally investigate or prosecute any alcohol or drug abuse patient.[facility] Reason for Visit * ReasonCommentsPre-Op Teaching Encounter Details DateTypeDepartmentCare Team (Latest Contact Info)Imxciidhdmf41/15/2025Telephone Gynecology [address] [place] [address] Phylicia Mcleod RN Pre-Op Teaching Social History Tobacco UseTypesPacks/DayYears UsedDateSmoking Tobacco: NeverSmokeless Tobacco: NeverAlcohol UseStandard Drinks/WeekCommentsYes0 (1 standard drink = 0.6 oz pure alcohol)rarePHQ-2AnswerDate RecordedPHQ-2 uqera619rea Deprivation Index AnswerDate RecordedNational Score (1-100), lower number is lower risk76 07/06/2022State Score (1-10), lower number is lower zuos5913Data from: https://www.neighborhoodatlas.[facility]/. Last address used for pelunedllcj[address]CommentsNoSex and Gender InformationValueDate RecordedSex Assigned at LlfmfFvzegm17/12/2025 12:01 PM EDT Legal FgnMycwvy84/19/2015 10:08 AM ESTGender UhdzbxpxTmyaww23/12/2025 12:01 PM EDTSexual EfwjeulhpogOlbcjzif25/10/2020 2:09 PM ESTdocumented as of this encounter Functional Status * Are you deaf or do you have serious difficulty hearing?AnswerDate of CiubrriakkVektihRa66/10/2015 10:15 AM Lia Lang RN * Are you blind or do you have serious difficulty seeing, even when wearing glasses?AnswerDate of CjoodcelehVtyrpqQq81/10/2015 10:15 AM Lia Lang RN * Do you have serious difficulty walking or climbing stairs?AnswerDate of MnzyxesmldZkgdirDv42/10/2015 10:15 AM Lia Lang RN * Do you have difficulty dressing or bathing?AnswerDate of AssessmentAuthorNo 11/23/2014 10:15 AM Lia Lang RN * Because of a physical, mental, or emotional condition, do you have difficulty doing errands alone such as visiting a doctor's office or shopping?AnswerDate of UjqblbhtfqTqblqgSr32/10/2015 10:15 AM Lia Lang RN documented as of this encounter Mental Status * Because of a physical, mental, or emotional condition, do you have serious difficulty concentrating, remembering, or making decisions?AnswerEntry Date HnugkxAt58/10/2015 10:15 AM Lia Lang RN documented in this encounter Miscellaneous Notes * Telephone Encounter - Phylicia Mcleod RN - 11/28/2024 3:45 PM EDT Procedure: LAPAROSCOPIC HYSTERECTOMY TOTAL FOR UTERUS 250 G OR LESS W/REMOVAL TUBE(S) AND/OR OVARY(S Physician: gina Cisneros Location: [facility]: [phone] Date & Time: 12/05/24 MEDICAL CLEARANCE: TBD CARDIAC CLEARANCE: TBD PRE ADMISSION TESTIN11/30/24 AT: Alissa THE FOLLOWING WAS EVALUATED Motivation To Learn: Interested Family/Significant Other Support: Unable to assess - Family not present Cognitive Ability: Alert and oriented Patient Learns Best By: Individual Instruction Written Instruction - Hand-outs Verbal Instruction The Following Influencing Factors Were Barriers To This Education Session: None The Following Physical Limitations Were Barriers To This Education Session: None Instruction Provided To: Patient MEDICATION INFORMATION ASPIRIN and ADVIL can make you more prone to bleeding after surgery. Please STOP taking these medications at least (5) days before and for (3) days after surgery or procedure. Some common medicationsthat contain ASPIRIN or act like Aspirin are TO BE AVOIDED: This is a list of the medications you should avoid: Advill Celebrex Motrin Aggrenox Clinoril Naprosyn(naproxen) Agrylin NSAIDS Pepto-Bismol Aleve Ecotrin Persantine [place] Excedrin Plaquenil Anacin Heparin Plavix Ascriptin Herbals Pletal Aspergum Ibuprofen Ticlid Donaldo Indocin Trental Bextra Midol [place] Bufferin Gingko Biloba Vitamin E (MVI) MEDICATIONS YOU MAY SUBSTITUTE Anacin 3 Fioricet * Tylenol with codeine * Darvocet N 100 * Plenadol Percocet * Datril Sine-Aide Tylenol Excedrin PM (*Denotes prescription needed to obtain these medications) Learning Topic: Pre/post op information Instructions reviewed for arrival time, parking and admission. Specific topics reviewed and discussed with all surgical patients include: No eating, drinking, or smoking after midnight prior to surgery. Medications as prescribed by anesthesia or the physician. Bowel Prep as indicated. None Hibiclens shower x 2 Review of information contained in surgical packet Pre-operative and intra-operative general activities were reviewed including: Holding Area, assessments, surgical positioning, and Family Waiting Area. Written post-operative instructions were given to the patient regarding post-op activity, pain control, symptoms to report. Post-operative instructions provided and reviewed with patient/family: ACTIVITY - No heavy lifting (>5-10 lbs), no pushing/pulling, OK to climb stairs DRIVING - No driving while taking prescription pain medication, or within 24 hours of anesthesia, OK to ride in a car. DIET - Advance diet as tolerated and as ordered by MD, drink 8 glasses of water a day, eat a diet high in protein and fiber unless otherwise directed by MD. CATHETER - Will be inserted during surgery, you may go home with a catheter. If you go home with a catheter you will have to come back to the office for a voiding trial, UTI symptoms reviewed and patient instructed to notify MD of any of these symptoms. INCISION CARE - Keep incision clean and dry, nat to be removed 7-10 days after surgery, steristrips do not need to be removed by MD BATHING - OK to shower after surgery unless otherwise directed by MD, no tub baths. PAIN MEDICATION - IV pain medication after surgery, IV BUGGY LADLE TENDER if ordered by MD, discharged home with aprescription for PO pain medication, pain management after surgery, side effects of pain medication(including constipation, dizziness, drowsiness, and medication interactions). DVT PROPHYLAXIS - Early ambulation, SCDs, injectable anticoagulants (heparin, lovenox, etc) RESPIRATORY - Incentive spirometer, coughing/deep breathing exercises, ambulation. RETURN TO WORK - As directed by physician, please send any FMLA papers to physician's secretary book keeper. SYMPTOMS TO NOTIFY MD - Fever, chills, nausea, vomiting, increased or severe pain, heavy vaginal bleeding, foul smelling vaginal drainage, pain or swelling in extremities. URGENT SYMPTOMS - Call 911 or go to ER if any shortness of breath, difficulty breathing, or chest pain. HOW TO CONTACT PHYSICIAN - Physician's office phone number given to patient, if after hours patientinstructed to call vertical contour band saw operator and ask for the doctor water filtration technician. Patient and family have phone number to call 24 hours/day. Patient Evaluation: Verbalizes understanding Patient and/or family express understanding of upcoming surgery and the operative process. Questions answered. Follow Up Plan: Follow up as needed Supplemental Material Given: Pre-operative teaching packet provided to the patient: INPATIENT/OUTPATIENT printed instructions; Post-operative instruction sheet, bowel prep instructionsheet For questions contact: Dr. Gina De La Fuente's office at [phone] Instructed By Phylicia Mcleod RN documented in this encounter Plan of Treatment DateTypeDepartmentCare Team (Latest Contact Info)Bsbvfmleyvy00/07/2025 8:15 AM ESTVisit (SP) Office Gynecology [address] [place] [address] Shelby Crouch, ASSISTANT SOFTBALL COACH.TURNTABLE ENGINEER [address] [place] [address] POST OP OK'D WITH BG01/15/2025 3:00 PM ESTVisit (SP) Office Gynecology [address] [place] [address] Shelby Crouch, ASSISTANT SOFTBALL COACH.TURNTABLE ENGINEER [address] [place] [address] POST OP01/17/2025 10:30 AM ESTDistance Health Gynecology [address] [address] Parrish Chan MD [address] [address] MENOPAUSE SMA01/18/2025 11:00 AM ESTOffice Visit Breast Center [address] [place] [address] Carly Sierra MD [address] [place] [address] annual exam06/03/2025 3:00 PM EDTDistance Health Endocrinology [place] [address] [place] [phone] [place] [address] [place] [address] Ongoing learning about symptoms and dseafhqfob92/21/2026 8:30 AM EDTDistance Health Gynecology [address] [address] Parrish Chan MD [address] [address] FOLLOW UPdocumented as of this encounter Visit Diagnoses Not on filedocumented in this encounter Care Teams Team MemberRelationshipSpecialtyStart DateEnd Date Carolin Roca MD [address] [place] [address] [facility] - [facility] Mfpzpahj49/9/[address] APRN [address] [place] [address] [facility]11/23/23documented as of this encounter
--- OUTSIDE RECORDS SUMMARY | 2024-12-07 11:26 | XMS_ITS | Encounter Summary ---
Author Organization [facility] Address [facility] [place] [address] Care Team Providers Care Plastic Eye Technician Name Role Phone Rose Mary Lane Jeffery DENTAL RESIDENT Unavailable [phone] Carolin Roca MD Primary Care Provider [phone] Source Comments In the event this information is protected by the Federal Confidentiality of Alcohol and Drug AbusePatient Records regulations: The Federal rules restrict any use of the information to criminally investigate or prosecute any alcohol or drug abuse patient.[facility] Encounter Details DateTypeDepartmentCare Team (Latest Contact Info)Lhwejrerwxg04/22/2025Travel Social History Tobacco UseTypesPacks/DayYears UsedDateSmoking Tobacco: NeverSmokeless Tobacco: NeverAlcohol UseStandard Drinks/WeekCommentsYes0 (1 standard drink = 0.6 oz pure alcohol)rarePHQ-2AnswerDate RecordedPHQ-2 agxol377rea Deprivation Index AnswerDate RecordedNational Score (1-100), lower number is lower risk76 07/06/2022State Score (1-10), lower number is lower pcfs44207/06/2022ata from: https://www.neighborhoodatlas.medicine.[facility].edu/. Last address used for yivlhqadih[address]CommentsNoSex and Gender InformationValueDate RecordedSex Assigned at XjvudZwoisw56/12/2025 12:01 PM EDT Legal IxkMftzew91/19/2015 10:08 AM ESTGender FmhqtawrXsutfn60/12/2025 12:01 PM EDTSexual XugwjzgyfozSpdzmcmu46/10/2020 2:09 PM ESTdocumented as of this encounter Functional Status * Are you deaf or do you have serious difficulty hearing?AnswerDate of QbxqjgztlzCelbcwFm65/10/2015 10:15 AM Lia Lang RN * Are you blind or do you have serious difficulty seeing, even when wearing glasses?AnswerDate of SlygdndeqjTzbegqAg12/10/2015 10:15 AM Lia Lang RN * Do you have serious difficulty walking or climbing stairs?AnswerDate of AnyxnpfsoxKgstwbPd03/10/2015 10:15 AM Lia Lang RN * Do you have difficulty dressing or bathing?AnswerDate of AssessmentAuthorNo 11/23/2014 10:15 AM Lia Lang RN * Because of a physical, mental, or emotional condition, do you have difficulty doing errands alone such as visiting a doctor's office or shopping?AnswerDate of XduveroruiVcbybwIi64/10/2015 10:15 AM Lia Lang RN documented as of this encounter Mental Status * Because of a physical, mental, or emotional condition, do you have serious difficulty concentrating, remembering, or making decisions?AnswerEntry Date BkhhsfNl81/10/2015 10:15 AM Lia Lang RN documented in this encounter Plan of Treatment DateTypeDepartmentCare Team (Latest Contact Info)Rxuxkhtjlpd70/07/2025 8:15 AM ESTVisit (SP) Office Gynecology [address] [id number] Shelby Crouch, DENTAL RESIDENT.SENIOR FRONT END DEVELOPER [address] [place] [address] POST OP OK'D WITH BG01/15/2025 3:00 PM ESTVisit (SP) Office Gynecology [address] [place] [address] Shelby Crouch APRN.SENIOR FRONT END DEVELOPER [address] [place] [address] POST OP01/17/2025 10:30 AM ESTDistance [facility] Gynecology [address] [phone] Parrish Chan MD [address] [phone] MENOPAUSE SMA01/18/2025 11:00 AM ESTOffice Visit Breast Center [address] [place], [place] [phone] Carly Sierra MD [address] [place] [address] annual exam06/03/2025 3:00 PM [facility] [place] [phone] [place] [address] [phone] [place] [address] [place] [address] Ongoing learning about symptoms and kpkstnrkin33/21/2026 8:[facility] [address] [phone] Parrish Chan MD [address] [address] FOLLOW UPdocumented as of this encounter Visit Diagnoses Not on filedocumented in this encounter Care Teams Team MemberRelationshipSpecialtyStart DateEnd Carolin Roca MD [address] [place] [phone] PCP - GeneralFamily Rkcgteao04/9/[address] APRN [address] [place] [address] ReferringFamily Iwivtuet80/9/24documented as of this encounter
--- OUTSIDE RECORDS SUMMARY | 2024-12-07 11:26 | XMS_ITS | Encounter Summary ---
Author Organization [facility] Address [facility] [place] [address] Care Team Providers Care Nail Making Machine Setter Name Role Phone Rose Mary Lane BAND TOP MAKER Unavailable [phone] Carolin Roca MD Primary Care Provider [phone] Source Comments In the event this information is protected by the Federal Confidentiality of Alcohol and Drug AbusePatient Records regulations: The Federal rules restrict any use of the information to criminally investigate or prosecute any alcohol or drug abuse patient.[facility] Encounter Details DateTypeDepartmentCare Team (Latest Contact Info)Pgavpyakigz48/12/2025 Get Medical Advice Gynecology Oncology [address] [phone] [place] [address] [phone] Bacitracin Social History Tobacco UseTypesPacks/DayYears UsedDateSmoking Tobacco: NeverSmokeless Tobacco: NeverAlcohol UseStandard Drinks/WeekCommentsYes0 (1 standard drink = 0.6 oz pure alcohol)rarePHQ-2AnswerDate RecordedPHQ-2 rsmym7243Area Deprivation Index AnswerDate RecordedNational Score (1-100), lower number is lower risk76 07/06/2022State Score (1-10), lower number is lower pbup7513Data from: https://www.neighborhoodatlas.medicine.[facility]/. Last address used for x[address]CommentsNoSex and Gender InformationValueDate RecordedSex Assigned at PcopkVjylyt09/12/2025 12:01 PM EDT Legal AqhJtwfxo62/19/2015 10:08 AM ESTGender LpwzvaxhSxkmye26/12/2025 12:01 PM EDTSexual VaslqpsmhuoZpckdylo59/10/2020 2:09 PM ESTdocumented as of this encounter Functional Status * Are you deaf or do you have serious difficulty hearing?AnswerDate of HqvswoeihoHbfijoXc16/10/2015 10:15 AM Lia Lang RN * Are you blind or do you have serious difficulty seeing, even when wearing glasses?AnswerDate of KsykiilhkaTqzcpxQd00/10/2015 10:15 AM Lia Lang RN * Do you have serious difficulty walking or climbing stairs?AnswerDate of GjbkvtxxmlStretdPm19/10/2015 10:15 AM Lia Lang RN * Do you have difficulty dressing or bathing?AnswerDate of AssessmentAuthorNo 11/23/2014 10:15 AM Lia Lang RN * Because of a physical, mental, or emotional condition, do you have difficulty doing errands alone such as visiting a doctor's office or shopping?AnswerDate of ZfijoruxwnEcczqhOl67/10/2015 10:15 AM Lia Lang RN documented as of this encounter Mental Status * Because of a physical, mental, or emotional condition, do you have serious difficulty concentrating, remembering, or making decisions?AnswerEntry Date ZgslcvAm09/10/2015 10:15 AM Lia Lang RN documented in this encounter Plan of Treatment DateTypeDepartmentCare Team (Latest Contact Info)Vhcxdzipsot61/07/2025 8:15 AM ESTVisit (SP) Office Gynecology [address] [place] [address] Shelby Crouch, BAND TOP MAKER.EQUIPMENT DETAILER [address] [place] [address] POST OP OK'D WITH BG01/15/2025 3:00 PM ESTVisit (SP) Office Gynecology [address] [place] [address] Shelby Crouch, BAND TOP MAKER.EQUIPMENT DETAILER [address] [place] [address] POST OP01/17/2025 10:30 AM ESTDistance [facility] Gynecology [address] [address] Parrish Chan MD [address] [address] MENOPAUSE SMA01/18/2025 11:00 AM ESTOffice Visit Breast Center [address] [address] Carly Sierra MD [address]00 [place], [place] [phone] annual exam06/03/2025 3:00 PM EDTDistance Health Endocrinology [place] [address] [place] [phone] [place] [address] [place] [address] Ongoing learning about symptoms and tyfpnffkup11/21/2026 8:30 AM EDTDissoutheastern arizona behavioral health servicesce [facility] Gynecology [address] [address] Parrish Chan MD [address] [address] FOLLOW UPdocumented as of this encounter Visit Diagnoses Not on filedocumented in this encounter Care Teams Team MemberRelationshipSpecialtyStart DateEnd Date Carolin Roca MD [address] [place] [address] PCP - GeneralA[facility] [place]91/9/[address] APRN [address] [place], [place] [phone] [facility]erringSouth [facility] Baaicclp24/9/24documented as of this encounter
[2024-12-07 16:25] LABS: Anion Gap 13.9; Blood Urea Nitrogen 9.0 mg/dL (7.0-18.0); Calcium 7.9 mg/dL (8.5-10.1); Carbon Dioxide 24.6 mmol/L (21.0-32.0); Chloride 107 mmol/L (98-107); Estimated GFR (African America 44 (>=60 mL/min/1.73m^2); Estimated GFR (Non-African Ame 36 (>=60 mL/min/1.73m^2); Glucose 88 mg/dL (74-106); Potassium 3.5 mmol/L (3.5-5.1); Sodium 142 mmol/L (136-145)
[2024-12-07 17:28] LABS: Hematocrit 35.5 % (36.0-48.0); Hemoglobin 11.4 g/dL (12.0-16.0); Mean Corpuscular HGB Conc 32.1 g/dL (29.9-35.2); Mean Corpuscular Hemoglobin 30.2 pg (26.7-34.0); Mean Corpuscular Volume 93.9 fL (81.0-99.0); Platelet Count 282 10^3/uL (150-450); Red Blood Count 3.78 10^6/uL (4.20-5.40); White Blood Count 12.3 10^3/uL (4.0-11.0)
--- NOTE | 2024-12-07 19:15 | PC.NURSE ---
18:58- patient report given to CRYSTAL Higgins at this time
== END 2024-12-07 23:40 | disposition short-term general hospital (02) ==
PROVIDERS: Emergency Provider Student in an Organized Health Care Education/Training Program
DX: R10.30 Lower abdominal pain, unspecified (principal); N17.9 Acute kidney failure, unspecified; Z90.710 Acquired absence of both cervix and uterus; J45.909 Unspecified asthma, uncomplicated; G89.18 Other acute postprocedural pain; R33.9 Retention of urine, unspecified
CPT/HCPCS: 36415; 51702; 74177; 80048; 80053; 81001; 83605; 83690; 85025; 85027; 87086; 96374; 96375; 96376; 99285; J1171; J2405; Q9966

== ENCOUNTER 2024-12-11 10:53 | Emergency (ER) | payer OTHER, BC, SELFPAY ==
--- OUTSIDE RECORDS SUMMARY | 2024-12-07 20:31 | XMS_ITS | Continuity of Care Document ---
Author Organization [facility] Address [address] [place] [address] Phone Care Team Providers Care Bakery Supervisor Name Role Phone Sahne Acharya DO Attending Provider Care Teams Patient Care Team Team Status: Inactive Member Role/Relationship Status Dates Shane Acharya DO Attending Provider Active Sta rt: December 07, 2024 End: December 07, 2024 Chief Complaint and Reason for Visit Chief Complaint Admit Date Unknown December 07, 2024 9 :32am Social History Smoking Status Unknown if ever smoked Observation Status Observation Response Date of Response Legal Sex Female (finding) Sex Assigned At 1985 Procedures Procedure Date Performed Status Urine Culture December 07, 2024 active Insurance Providers Guarantor Laverne Guy Address [address] [facility] [id number] Info.Home Phone: C Payer Group Member ID Coverage Type Subscriber Relationship to Subscriber Effective Date Expiration Date MMO Id: [id number]: [id number] Encounters Encounter Location(s) Arrival/Admit Date Discharge/Departure Date Discharge/Departure Disposition Provider(s) Departed Referred -[facility] December 07, 2024 9:32am December 07, 2024 9:33am Discharged to home care or self care (routine discharge) Garret Morrell DO Plan of Treatment Future Tests Future scheduled test information is unavailable Pending Tests Test Name Ordered Date Scheduled Date Urine Culture December 07, 2024 9:32am Future Visits Future appointment information is unavailable Future Procedures Procedure Name Ordered Date Scheduled Date Urine Culture December 07, 2024 12:20pm Octob er 2024 9:32am Future Medications Future medication information is unavailable Patient Instructions Patient instructions are unavailable
[2024-12-11] VITALS (43 sets, daily range): BP systolic 115–139; BP diastolic 62–77; PULSE 82–84; TEMP 37.4–38.1; O2SAT 92–100; BMI 34.9
--- OUTSIDE RECORDS SUMMARY | 2024-12-11 11:08 | XMS_ITS | Encounter Summary ---
Author Organization [facility] Address [address] [place] [address] Care Team Providers Care Director Of Child Welfare Services Name Role Phone Carolin Roca MD Primary Care Provider [phone] NP Unavailable [phone] NP Unavailable [phone] Encounter Details DateTypeDepartmentCare Team (Latest Contact Info)Mjwbeoiydpu86/27/2025Patient Outreach [facility] POP[facility] [address] [place] [address] Kacie Pa LPN Social History Tobacco UseTypesPacks/DayYears UsedDateSmoking Tobacco: NeverSmokeless Tobacco: NeverAlcohol UseStandard Drinks/WeekCommentsYes1 (1 standard drink = 0.6 oz pure alcohol)caffeine: 1-2 cups tbkshQ5774 Health LiteracyAnswerDate RecordedHow often do you need [...] times a week09/28/2024How often do you attend buddhism or jew services?1 to 4 times per year09/28/2024Do you belong to any clubs or organizations such as buddhism groups, unions, fraAsteres or athletic groups, or school groups?Yes09/28/2024How often [...] at all 09/28/2024PHQ-2AnswerDate RecordedPatient Health Questionnaire-2 Score0 09/28/2024[facility] [place] [facility] Occup[facility] Health - Occupational Stress QuestionnaireAnswerDate [...] were you homeless or living in a correction (including now)?No09/28/2024CommentsUnknownSex and Gender InformationValueDate RecordedSex Assigned at BirthNot on fileLegal SexFemale 04/28/2022 6:54 PM EDTGender IdentityNot on fileSexual OrientationNot on file documented as of this encounter Progress Notes * Kacie Pa LPN - 12/10/2024 11:39 AM EDT Images from the original note were not included. Flowsheet Row Patient Outreach from 12/10/2024 in [facility] with Kacie Pa LPN Hospital Information ED, Hospital or Nursing Home Facility Discharge? Hospital Patient has been contacted within two business days of discharge Yes Diagnosis ARON Discharge Date 12/09/24 Discharged To: Home Setting Discharge Hospital [facility] Engagement Call Start Time 1134 Admission Date 12/08/24 Medications Discharge medications reviewed and reconciled from hospital? Yes [START: Levsin] Is the patient having any side effects they believe may be caused by any medication additions or changes? No Does the patient have all medications ordered at discharge? Yes Nursing Interventions No intervention needed Is the patient taking all medications as directed (includes completed medication regime)? Yes Nursing Interventions Nurse provided patient education Appointments Does the patient have a primary care provider? Yes Nursing Interventions Patient declined follow up appointment w/ PCP Does the patient have any upcoming specialty appointments? Yes [CORPORATE BOND TRADER/Oncology 12/21] Nursing Interventions Advised patient to keep appointment Self Management Patient Teaching Does the patient have access to their discharge instructions? Yes Nursing Interventions Reviewed instructions with patient What is the patient's perception of their health status since discharge? Improving Is the patient/caregiver able to teach back the hierarchy of who to call/visit for symptoms/problems? PCP, Specialist, Home Health nurse, Urgent Care, ED, 911 Yes Wrap Up Wrap Up Additional Comments UA, CT A/P, trial void Call End Time 1144 Called and spoke to pt. She was unable to void after surgery so she went to [facility] ED and then transferred to [facility]. She has a bob cath in which is now draining clear yellow urine. At times sheis having bladder spasms and leaking around the catheter. She is taking Levsin to assist with the spasms. She has an appt with CORPORATE BOND TRADER/Oncology 12/21 but she called today and will try to get her in for trial void. Declined HFU or 30 day monitor at this time. Medications reconciled. documented in this encounter Plan of Treatment DateTypeDepartmentCare Team (Latest Contact Info)Rhbwzhtrhwd21/13/2026 9:00 AM ESTOffice Visit [facility] Medicine [address] [place] [address] NP [address] [place] [address] documented as of this encounter Goals GoalPatient Goal TypeAssociated ProblemsRecent ProgressPatient-Stated?Author Help patient manage antidepressant medication Care PlanPatient on antidepressant monitoring planRose Mary Rodriguez NPdocumented as of this encounter Visit Diagnoses Diagnosis BRCA1 genetic carrier- Primary ARON (acute kidney injury) documented in this encounter Additional Health Concerns Active ProblemsNoted DateDiagnosed DatePatient on antidepressant monitoring plan 5AssessmentNoted TimePHQ-9 Depression Total Score: 9:00 AM ESTdocumented as of this encounter Care Teams Team MemberRelationshipSpecialtyStart DateEnd Date Carolin Roca MD [address] [place], [place] [phone] [facility] - [facility]10/10/[address] NP [address] [facility] [place], [place] [phone] PCP - [facility]09/14/[address] NP [address] [facility] [place], [place] [address] Nurse PractitionerFagaebler children's center Medicine11/08/23documented as of this encounter
--- OUTSIDE RECORDS SUMMARY | 2024-12-11 11:08 | XMS_ITS ---
Author Organization [facility] Address [address] [facility] [place] [address] Care Team Providers Care Community Program Assistant Name Role Phone Carolin Roca MD Primary Care Provider [phone] NP Unavailable [phone] NP Unavailable [phone] Inpatient Discharge Transitional Care Management (TCM) Status:Declined (Declined) Start date:12/09/2024 Enrollment date:12/10/2024 Enrollment reason:Identified using hospital discharge data End date:12/10/2024 Decline reason:Uninterested Overview Patient discharged from [facility] on 12/09. Please contact for hospital SALAZAR and schedule follow-up appointment within 7-14 days. Continued Care and Services Coordination
--- OUTSIDE RECORDS SUMMARY | 2024-12-11 11:08 | XMS_ITS | Patient Health Record ---
Author Organization [facility] Address [address] [place] [address] Care Team Providers Care Technical Consultant Name Role Phone Davion Joyner MD Primary [...] Arthralgia of the an kle and/or foot (843849382) Pain in left ankle and joints of left foot (M25.572) ActiveconfirmedProblemPeroneal tendinitis (23351027)Peroneal tendinitis, left leg (M76.72)Activeconfirmed Plan Of Treatment Pending Test Test Name Order Date XR Ankle LT (3 views) * (164) 02/21/2017 Insurance Providers Payer Name Payer Address Payer Phone Subscriber Number Group Number Insured Name Patient Relationship to Insured Coverage Start Date Coverage End Date MMO TPA SUPERMED [address] [address] [place] [address] [id number] Tony Guy Spouse - patient is the spouse of the insured 7 Medical (General) History Medical History History ICD Code BRCA 1 gene mutation Surgical History Surgery Date(Month/Year) Bilateral prophylactic mastectomy
--- OUTSIDE RECORDS SUMMARY | 2024-12-11 11:08 | XMS_ITS | Clinical Summary ---
Author Organization [facility] Address [address] [place] [address] Phone Care Team Providers Care Time Stamp Assembler Name Role Phone Unavailable Primary Care Provider Unavailabl e Social History Tobacco UseTypesPacks/DayYears UsedDateSmoking Tobacco: Never Assessed CommentsUnknownSex and Gender InformationValueDate RecordedSex Assigned at Not on fileLegal DriMbaucb35/25/2022 10:15 AM ESTGender IdentityNot on file Sexual OrientationNot on file Plan of Treatment Not on file
--- OUTSIDE RECORDS SUMMARY | 2024-12-11 11:08 | XMS_ITS | Clinical Summary ---
Author Organization [facility] Address [address] [facility] [place] [address] Care Team Providers Care Ambulance Assistant Name Role Phone Carolin Roca MD Primary Care Provider [phone] NP Unavailable [phone] NP Unavailable [phone] Allergies Active AllergyReactionsCriticalityNoted DateCommentsKiwi ExtractDiarrhea,GI intolerance,Itching,Tvxbnehp47/23/2023Milk (Cow)GI wqfomqvoycq64/23/2023 Medications MedicationSigDispense QuantityRefillsLast FilledStart DateEnd DateStatus Multiple Vitamins-Minerals (Multivitamin Gummies Adult) chewable tablet as directed OrallyActive norgestimate-ethinyl estradiol (Ortho Tri-Cyclen,Trinessa) 0.18/0.215/0.25 MG-35 MCG tablet Take 1 tablet by mouth in the morning.12/06/2022ctive omeprazole (PriLOSEC) [address] capsule Indications:Globus [...] clean tip and replace cap. 48 g 302/05/2025Active albuterol HFA 90 mcg/act inhaler Indications:Mild intermittent asthma with acute exacerbation (HCC)Inhale 2 puffs every 4 (four) hours if needed for wheezing or shortness of breath 18 g 506Active buPROPion XL (Wellbutrin XL) 300 MG 24 hr tablet Indications:Mixed obsessional thoughts and acts,Generalized anxiety disorderTake 1 tablet (300 mg) by mouth in the morning. Do not crush, chew, or split. 90 tablet 5Active sertraline (Zoloft) 50 MG tablet Indications:Generalized anxiety disorderTake 1 tablet (50 mg) by mouth Daily 90 tablet 5Active hyoscyamine (Levsin) 0.[address] 0.125 mg under the tongue every 6 (six) hours if comhdn095Active loratadine (Claritin Reditabs) 10 MG disintegrating tablet Take 10 mg by mouth Daily12/10/2024Discontinued Active Problems ProblemNoted DateDiagnosed ViifJxalfxqhbvvx67/03/2023yst of right ovary 12/17/2022Family history of carrier of genetic argreid1212/17/2022enetic susceptibility to malignant neoplasm of ovary12/17/2022Mild intermittent asthma with acute kqndmopymnlb10/03/2023Mild reactive airways hwdgtev3112/17/2022ain in left ankle and joints of left foot12/17/2022eroneal slmjubrwnm42/03/2023 Raynaud's disease without /03/2023Uterine wqgschw6912/17/2022History of bilateral /29/2018Family history of breast lcglyu1105/09/2014Genetic susceptibility to malignant neoplasm of movhqd8205/09/2014BRCA1 genetic carrier 05/09/2014Thyroid nodule Encounters DateTypeDepartmentCare FbqpOfmeqjedssd53/27/2025Patient Outreach [facility] [address] [place] [address] Kacie Pa LPN 11/21/2024linisync Result Encounter [facility] External Department Unsolicited Provider, Generic External Data 11/21/2024linisync Result Encounter [facility] External Department Unsolicited Provider, Generic External Data 11/21/2024linisync Result Encounter [facility] External Department Unsolicited Provider, Generic External Data 10/25/2024[facility] [address] [facility] [place] [address] Brigitte Han MA ndyklpl0110/24/2024 3:45 PM EDTAncillary Procedure [facility] [address] [facility] [address] [place] [address] Thyroid atuvlp7310/24/20240286Nsafyo15/04/2025[facility]ill [facility] [address] [facility] [place] [address] NP Mild intermittent asthma with acute exacerbation (HCC); Mixed obsessional thoughts and acts ; Generalized anxiety iaeuzrta02/26/2025linisync Result Encounter [facility] External Department Unsolicited Provider, Generic External Data 09/28/2024 3:00 PM EDTOffice Visit [facility] [address] [place] [phone] NP Right foot pain (Primary Dx); Thyroid nodule ; Allergic rhinitis, unspecified seasonality, unspecified trigger; Mild intermittent asthma without complication (HCC); Gastroesophageal reflux disease without esophagitis; Generalized anxiety qapquvyg74/15/2025amboo flowsheet [facility] [address] [facility] [place] [phone] NP 09/28/2024Travelfrom Last 3 Months Immunizations ImmunizationAdministration DatesNext DueInfluenza, injectable, MDCK, preservative free, izledthwfrvf95/30/2023,01/13/2022Influenza, injectable, MDCK, kedgxztmmoil55/26/2020Influenza, injectable, htzvgpsijalj66/02/2017Influenza, injectable, quadrivalent, preservative free12/27/2020,01/10/2013Influenza, seasonal, injectable, preservative [...] = 0.6 oz pure alcohol)caffeine: 1-2 cups jpupeS6405 Health LiteracyAnswerDate RecordedHow often do you need [...] times a week09/28/2024How often do you attend pentecostalism or congregational services?1 to 4 times per year09/28/2024Do you belong to any clubs or organizations such as pentecostalism groups, unions, fraternal or athletic groups, or [...] at all 09/28/2024PHQ-2AnswerDate RecordedPatient Health Questionnaire-2 Score0 09/28/2024[facility] [place] [facility] Occup[facility] Health - Occupational Stress QuestionnaireAnswerDate [...] were you homeless or living in a usp (including now)?No09/28/2024CommentsUnknownSex and Gender InformationValueDate RecordedSex Assigned at BirthNot on fileLegal SexFemale 04/28/2022 6:54 PM EDTGender IdentityNot on fileSexual OrientationNot on file Last Filed Vital Signs Vital SignReadingTime TakenCommentsBlood Vvnzcsfa038/7608 3:07 PM EDT Wfvql407009/28/2024 3:07 PM MVQXfsfmflvbox12.7 ??C (98 ??F)06/26/2024 11:57 AM EDT Respiratory Lhmm7852 4:01 PM ESTOxygen Laucfkmrsu60%09/28/2024 3:07 PM EDTInhaled Oxygen Concentration--Yrvdiz31.3 kg (212 lb 3.2 oz)09/28/2024 3:07 PM AUGOjhtie536.6 cm (5' 6 )06/26/2024 11:57 AM EDTBody Mass Index34.25006/26/2024 11:57 AM EDT Plan of Treatment DateTypeDepartmentCare Team (Latest Contact Info)Mrvnccumyle27/13/2026 9:00 AM ESTOffice Visit [facility] [address] [facility] [place] [address] NP [address] [facility] [place] [address] Health MaintenanceDue DateLast DoneCommentsMMR Vaccines (1 of 1 - Standard series)1985Varicella Vaccines (1 of 2 - 13+ 2-dose series)1997 Hepatitis B Vaccines (1 of 3 - 19+ 3-dose series)10/14/2003Pneumococcal Vaccine: Pediatrics (0 to 5 Years) and At-Risk Patients (6 to 64 Years) (1 of 2 - PCV) 10/14/2003HPV Vaccines (1 - 3-dose SCDM series)10/14/2011DTaP/Tdap/Td Vaccines (2 - Td or Tdap)/05/20216700Ffbmlpucp46/30/202506/COVID-19 Vaccine ( season)/07/2020, 03/26/2020, 02/27/2020 Influenza Vaccine (#1)/08/2023, 01/13/2023, 01/13/2022, Additional history existsPap Smear/, 10/09/2024, 01/02/2019Cervical Cancer Qukqeqbmv75/26/2030HPV/Sobvlx27, 01/02/2019, 01/02/2019 HIB VaccinesAged OutNo longer eligible based on patient's age to complete this topicHepatitis A VaccinesAged OutNo longer eligible based on patient's age to complete this topicIPV VaccinesAged OutNo longer eligible based on patient's age to complete this topicMeningococcal B VaccineAged OutNo longer eligible based on patient's age to complete this topicMeningococcal VaccineAged OutNo longer eligible based on patient's age to complete this topicRotavirus VaccinesAged Out No longer eligible based on patient's age to complete this topic Goals GoalPatient Goal TypeAssociated ProblemsRecent ProgressPatient-Stated?Author Help patient manage antidepressant medication Care PlanPatient on antidepressant monitoring Rose Mary Mckeon NP Procedures Procedure NamePriorityDate/TimeAssociated DiagnosisCommentsCCF CANCER AG125 SERPL-TDXUBietcmo62/08/2025 9:26 AM EDT [facility] TYPE AND SCREEN,30 IMYYglowou12/08/2025 9:26 AM EDT US FEMALE PELVIS ALRASFDB26/08/2025 9:13 AM EDT XR CHEST 2V FRONTAL/LAT11/21/2024 8:21 AM EDT US LJTRHLHViuytqd27/10/2025 3:56 PM EDT Thyroid nodule [facility] PAP FLUID CERVICAL MNNFZAMPHYXqmtztx99/26/2025 4:02 PM EDT [facility] HPV W/GENOTYPE THIN CRSJYnttypg16/26/2025 4:02 PM EDT [facility] CANCER AG125 SERPL-ETALQidcacv79/26/2025 1:01 PM EDT from Last 3 Months Results * [facility] TYPE AND SCREEN,30 DAY (11/21/2024 9:26 AM EDT)ComponentValueRef RangeTest MethodAnalysis TimePerformed AtPathologist SignatureABOACCFRHPositiveCCF ANTIBODY SCREENNegativeCCFSpecimen (Source)Anatomical Location / Laterality Collection Method / VolumeCollection TimeReceived Time11/21/2024 9:26 AM EDT 11/21/2024 9:26 AM EDT Narrative CLINISYNC - 11/21/2024 10:33 AM EDT Specimen Type: BLOOD SPECIMEN Ordering Facility: [facility] ?Address: [address] [place] [address] BLOOD BANK CLIA [id number] [address] [place] [address] [place] Authorizing ProviderResult TypeResult StatusGeneric External Data Provider CLINISYNCFinal ResultPerforming OrganizationAddressCity/State/ZIP CodePhone Number CLINISYNC [facility] [address] [place] [address] * [facility] CANCER AG125 SERPL-ACNC (11/21/2024 9:26 [...] ([place] 125 II) [package insert V 1.0 Yemeni]. [facility], [place], [place] (November 2014) Specimen (Source)Anatomical Location / LateralityCollection Method / Volume Collection TimeReceived Time11/21/2024 9:26 AM EDT1 12:07 PM EDT Narrative CLINISYNC - 11/21/2024 5:19 PM EDT Specimen Type: BLOOD SPECIMEN Ordering Facility: [facility] ?Address: [address] [place] [address] Original Ordering Provider: TRACEY KEANE Authorizing ProviderResult TypeResult StatusGeneric External Data Provider CLINISYNCFinal ResultPerforming OrganizationAddressCity/State/[facility] CodePhone Number [facility] [address] [place] [address] * US FEMALE PELVIS TRANSVAG (11/21/2024 9:13 [...] CM UNILOCULAR RIGHT OVARIAN CYST SINCE 06/14/2024. Spindraw Operator: PSCB ?? Transcribe Date/Time: Nov ??2024 ??1:33P Dictated by : MUMTAZ ZAMORA MD This examination was interpreted and the report reviewed and electronically signed by: MUMTAZ ZAMORA MD on Nov ??2024 ??1:41PM ??EST [id number]^AGFA_IDC^SI^ACN Procedure Note Radiology, Radiologist, - 11/21/2024 * [...] and stored in a permanent archive. MQ: COMPARISON: 06/14/2024 RESULT: Uterus: -Size: 9.9 x [...] CM UNILOCULAR RIGHT OVARIAN CYST SINCE 06/14/2024. Spindraw Operator: [facility] Transcribe Date/Time: Nov 21 2024 1:33P Dictated by : MUMTAZ ZAMORA MD This examination was interpreted and the report reviewed and electronically signed by: MUMTAZ ZAMORA MD on Nov 21 2024 1:41PM EST [id number]^AGFA_IDC^SI^ACN Authorizing ProviderResult TypeResult StatusGeneric External Data Provider [...] tissues: ??Unremarkable. IMPRESSION: No acute radiographic abnormality. Spindraw Operator: NICKOLAS ?? Transcribe Date/Time: Nov 10:51A Dictated by : YOON ??MD NATTY This examination was interpreted and the report reviewed and electronically signed by: YOON LUZ MD on Nov 10:53AM ??EST [id number]^AGFA_IDC^SI^ACN Procedure Note Radiology, Radiologist, - 11/21/2024 * [...] tissues: Unremarkable. IMPRESSION: No acute radiographic abnormality. Spindraw Operator: NICKOLAS Transcribe Date/Time: Nov 21 2024 10:51A Dictated by : YOON LUZ MD This examination was interpreted and the report reviewed and electronically signed by: YOON LUZ MD on Nov 21 2024 10:53AM EST [id number]^AGFA_IDC^SI^ACN Authorizing ProviderResult TypeResult StatusGeneric External Data Provider [...] Data System (TI- RADS) established by the [employer] of [employer] to help provide guidance [...] and Data System (TI- RADS) establishedby the [employer] College of radiology to help provide guidance regardingmanagement of thyroid nodules based on their appearance. These areoffered in an attempt to assist the referring physician in theirdecision process and help address the current over diagnosis of thyroidcancer. These guidelines are considered recommendations and guidance anddo not represent rules or absolute standards of care. ELECTRONICALLY SIGNED BY: Son Sauer MD Authorizing ProviderResult TypeResult StatusSaprotestant deaconess hospital Ariana NPIM US PROCEDURES Final Result * [facility] PAP FLUID CERVICAL DIAGNOSTIC (10/09/2024 4:02 PM EDT)ComponentValueRef RangeTest MethodAnalysis TimePerformed AtPathologist SignatureCCF CASE REPORT CCFComment: Gynecologic Cytology Report ? Case: [id number] ? Authorizing Provider: ??Tracey Keane, ?Collected: ? 10/09/2024 04:02 PM? ASSEMBLY LINE DRIVER.INVESTMENT EXECUTIVE ? Ordering Location: ? Gynecology Oncology ?Received: ?10/09/2024 06:30PM ? First Screen: ?Dina Ulloa CT, ? ASCP ? Specimen: ?Pap Test, ThinPrep, Cervix ? [facility] ADEQUACY INTERPRETATIONCCFComment: Satisfactory for interpretation. No endocervical component [facility] CYTOLOGY INTERPRETATION PAPCCFComment: Negative for intraepithelial lesion or malignancy. at 1500 EDT CLINICAL HISTORY, CYTOLOGY, GYNRoutine ExamWEST [facility]5CS[facility] PAP DISCLAIMER COMMENTThe Pap Smear is a screening test for cervical cancer. False negative results occur with all screening tests, emphasizing the need for rescreening at recommended intervals, and clinical correlation.[facility] PAP RESOURCE ECONOMIST COMMENTThis specimen has been analyzed by the FDA-approved [employer] ([place] Digital Technology System, which usesdigital imaging and an enhanced artificial intelligence image analysis algorithm to identify fieldsof interest on the microscopic slide, to assist the dynamo repairer and pathologist in evaluating cells on ThinPrep Pap tests. Following analysis, stark ofinterest on the microscopic slide selected by the algorithm are reviewed by a dynamo repairer. If a sample requires hierarchical review, the pathologist will review the same stark of interest selected by the algorithm prior to final interpretation. CCFCCF FINAL PERFORMING LABCCFComment: Technical component, trip follower screening performed at: [facility], [address] [place] [address] ??CLIA: [id number] Diagnostic interpretation performed at: [facility], [address] [place] [address] ?? CLIA# [id number] Pbx Supervisor: Berhane George MD Specimen (Source)Anatomical Location / LateralityCollection Method / Volume Collection TimeReceived Time10/09/2024 4:02 PM EDT10/10/2024 1:41 PM EDT Narrative CLINISYMA - 10/12/2024 3:00 PM EDT Specimen Type: FLUID SPECIMEN Ordering Facility: [facility] ?Address: [address] [place] [address] Original Ordering Provider: TRACEY KEANE Authorizing ProviderResult TypeResult StatusGeneric External Data Provider CLINISYNCFinal ResultPerforming OrganizationAddressCity/State/ZIP CodePhone Number CLINISYMA [facility] [address] [place] [address] * [facility] HPV W/GENOTYPE THIN PREP (10/09/2024 [...] EDT Specimen Type: FLUID SPECIMEN Ordering Facility: [facility] ?Address: [address] [place] [address] Original Ordering Provider: TRACEY KEANE Authorizing ProviderResult TypeResult StatusGeneric External Data Provider CLINISYNCFinal ResultPerforming OrganizationAddressCity/State/ZIP CodePhone Number CLINISYNC [facility] [address] [place] [address] from Last 3 Months Additional Health Concerns Active ProblemsNoted DateDiagnosed DatePatient on antidepressant monitoring plan 06/20/2024 Insurance * Guarantor: Laverne Guy AAccount TypeRelation to PatientDate of BirthPhone Billing AddressPersonal/EanorrDnhg91/30/1985 [facility] [place] [address] Care Teams Team MemberRelationshipSpecialtyStart DateEnd Date Carolin Roca MD [address] [place] [address] [facility] - [facility] NP [address] [facility] [place] [address] PCP - [facility]09/14/[address] NP [address] [place] [address] Nurse PractitionerFamily Medicine11/08/23
--- OUTSIDE RECORDS SUMMARY | 2024-12-11 11:08 | XMS_ITS | Clinical Summary ---
Author Organization [facility] Address [address] [place] [address] Care Team Providers Care Natural Gas Treating Unit Operator Name Role Phone Unavailable Primary Care Provider Unavailabl e Social History Tobacco UseTypesPacks/DayYears UsedDateSmoking Tobacco: Never Assessed CommentsUnknownSex and Gender InformationValueDate RecordedSex Assigned at Not on fileLegal RbkHkkwnc67/29/2022 11:14 PM EDTGender IdentityNot on file Sexual OrientationNot on file Plan of Treatment Not on file
[2024-12-11 11:53] LABS: Hematocrit 35.8 % (36.0-48.0); Hemoglobin 11.4 g/dL (12.0-16.0); Immature Granulocytes Abs Auto 0.06 10^3/uL (0.00-0.03); Immature Granulocytes Pct Auto 0.4 % (0.0-0.5); Lymphocytes Absolute Auto 1.4 10^3/uL (1.2-3.8); Mean Corpuscular HGB Conc 31.8 g/dL (29.9-35.2); Mean Corpuscular Hemoglobin 29.7 pg (26.7-34.0); Mean Corpuscular Volume 93.2 fL (81.0-99.0); Platelet Count 304 10^3/uL (150-450); Red Blood Count 3.84 10^6/uL (4.20-5.40); White Blood Count 16.4 10^3/uL (4.0-11.0)
[2024-12-11 12:08] LABS: Alanine Aminotransferase 26 U/L (14-59); Albumin Globulin Ratio 0.8; Albumin Level 2.9 g/dL (3.4-5.0); Alkaline Phosphatase 48 U/L (46-116); Anion Gap 13.0; Aspartate Amino Transferase 30 U/L (15-37); Blood Urea Nitrogen 11.0 mg/dL (7.0-18.0); Calcium 8.4 mg/dL (8.5-10.1); Carbon Dioxide 25.6 mmol/L (21.0-32.0); Chloride 106 mmol/L (98-107); Estimated GFR (African America >60 (>=60 mL/min/1.73m^2); Estimated GFR (Non-African Ame >60 (>=60 mL/min/1.73m^2); Globulin 3.7 g/dL; Glucose 96 mg/dL (74-106); Potassium 3.6 mmol/L (3.5-5.1); Sodium 141 mmol/L (136-145); Total Protein 6.6 g/dL (6.4-8.2)
[2024-12-11 12:12] LABS: Lactate/Lactic Acid 0.7 mmol/L (0.4-2.0)
--- NOTE | 2024-12-11 12:24 | ECG_ITS ---
The [facility] Test Date: 2024-12-11 Pat Name: ANDRIA DANGELO Department: Room: - Gender: Female Spudder: : 1985 Requested By: [id number] Order Number: [id number] Reading MD: RENAE SMALLS Measurements Intervals [place] Rate: 93 P: 71 [place]: 142 QRS: 74 QRSD: 80 T: 64 QT: 346 QTc: 397 Interpretive Statements 1100 Sinus rhythm 9110 normal ECG No previous ECG available for comparison Electronically Signed On 12-11-2024 13:14:38 EDT by RENAE SMALLS
[2024-12-11] MEDS: FENTANYL CITRATE/PF 100 MCG/2 ML VIAL 50 MCG IV ×3 (13:13→16:25)
--- NOTE | 2024-12-11 13:13 | CT_ITS ---
[address] [address] Patient Name: ANDRIA DANGELO MRN: [id number] date: 1985 Sex: F Assigned Patient Location: ER Current Patient Location: Accession/Order Number: [id number] Exam Date: 12/11/2024 13:30 Report Date: 12/11/2024 14:12 At the request of: PETRA ÁLVAREZ MD Procedure: CT angio chest CT ANGIOGRAM OF THE CHEST, PULMONARY EMBOLISM PROTOCOL: CLINICAL INFORMATION: Left-sided chest pain COMPARISON: None TECHNIQUE: Following intravenous injection of contrast CT scans of the chest were obtained using pulmonary embolism protocol. Coronal and sagittal reconstructed images, as well as volume rendered CT pulmonary angiographic images were also submitted.The CT exam was performed using one or more of the following dose reduction techniques: Automated exposure control, adjustment of the MA and/or Kv according to patient size, or use of the iterative reconstruction technique. FINDINGS: Pulmonary Vasculature: Contrast bolus is adequate for evaluation of pulmonary embolism. Pulmonary trunk appears nondilated. No filling defects are identified to suggest pulmonary embolism. Mediastinum : Thoracic aorta is normal in caliber. No pericardial effusion. No lymphadenopathy. The esophagus is grossly unremarkable. Lungs: Dependent atelectatic changes. No consolidation pneumothorax or pleural effusion. Upper abdomen: See CT abdomen and pelvis report Soft tissue/bones: Soft tissues surrounding the chest wall demonstrate no acute findings. Osseous structures demonstrate no acute findings.. CT/CT angio chest IMPRESSION: NO EVIDENCE OF ACUTE PULMONARY EMBOLISM OR PROCESS. Impression dictated by: Blu Chung Jr., D.O. 12/11/2024 2:12 PM Dictation Location: [place] [address] Electronically authenticated by: [id number] Y Date: 12/11/2024 14:12
--- NOTE | 2024-12-11 13:41 | CT_ITS ---
The [address] [address] Patient Name: ANDRIA DANGELO MRN: [id number] date: 1985 Sex: F Assigned Patient Location: ER Current Patient Location: ER Accession/Order Number: [id number] Exam Date: 12/11/2024 13:30 Report Date: 12/11/2024 14:22 At the request of: PETRA ÁLVAREZ MD Procedure: CT abdomen pelvis w con CT ABDOMEN AND PELVIS WITH INTRAVENOUS CONTRAST: CLINICAL HISTORY: abd pain s/p surger COMPARISON: CT abdomen and pelvis 12/07/2024 TECHNIQUE: Spiral images were obtained through the abdomen and pelvis following the administration of intravenous contrast. This CT exam was performed using one or more following dose reduction techniques: Automated exposure control, adjustment of the mA and/or kV according to patient size, or use of iterative reconstruction technique. FINDINGS: Lung Bases: [Please see CT chest report] Organs:Hemangiomas involving the liver. Gallbladder portal vein pancreas spleen adrenal glands kidneys and aorta all appear unremarkable.[ GI: Stomach is grossly unremarkable. Small bowel appears nondilated. No definite acute colonic abnormality.[ Pelvis:[Inflammatory changes seen involving the pelvis consistent with the history of hysterectomy. There appears to be placement of a Cabrera catheter with air seen within the urinary bladder lumen. The balloon appears to be situated outside the urinary bladder wall.] Peritoneum/Retroperitoneum:Small amount of free air is noted. Small amount of free fluid seen within the pelvis.[ Abd wall/Bones:Bilateral lungs are clear. Osseous structures demonstrate degenerative change.[ CT/CT abdomen pelvis w con IMPRESSION: There appears to be placement of a Cabrera catheter with air seen within urinary bladder lumen since the prior study. The balloon of the Cabrera catheter appears to extend past the urinary bladder wall. Perforation/fistula cannot BE excluded given the free air which was not present on the prior study. This can be further investigated by ultrasound. Inflammatory changes involving the pelvis consistent with the history of recent hysterectomy. The amount of fluid appears to have decreased since the prior study. Findings were discussed with Dr. Álvarez 12/11/2024 at 2:22 PM Impression dictated by: Blu Chung Jr., D.OLarisa 12/11/2024 2:22 PM Dictation Location: [place] [address] Electronically authenticated by: [id number] Y Date: 12/11/2024 14:22
--- NOTE | 2024-12-11 14:29 | US_ITS ---
The [address] [address] Patient Name: ANDRIA DANGELO MRN: [id number] date: 1985 Sex: F Assigned Patient Location: ER Current Patient Location: ER Accession/Order Number: [id number] Exam Date: 12/11/2024 14:40 Report Date: 12/11/2024 15:12 At the request of: PETRA ÁLVAREZ MD Procedure: US bladder BILATERAL RENAL AND BLADDER ULTRASOUND CLINICAL HISTORY: Possible perforated Ch catheter. COMPARISON: CT abdomen and pelvis performed earlier today FINDINGS: The urinary bladder is mildly distended. The Ch catheter is partially visualized within the lumen of the urinary bladder with the inflated balloon not clearly seen within the bladder lumen. US/US bladder IMPRESSION: THE URINARY BLADDER IS MILDLY DISTENDED. THE CH CATHETER IS PARTIALLY VISUALIZED WITHIN THE LUMEN OF THE URINARY BLADDER. THE INFLATED BALLOON IS NOT CLEARLY SEEN WITHIN THE BLADDER LUMEN. GIVEN THE CT FINDINGS, PERFORATION CANNOT BE EXCLUDED. IF FURTHER EVALUATION IS NEEDED, CT CYSTOGRAM IS RECOMMENDED. Impression dictated by: Blu Chung Jr., D.O. 12/11/2024 3:12 PM Dictation Location: [place] [address] Electronically authenticated by: [id number] Y Date: 12/11/2024 15:12
[2024-12-11 15:08] LABS: Lactate/Lactic Acid 0.4 mmol/L (0.4-2.0)
[2024-12-11] MEDS: 0.9 % SODIUM CHLORIDE 1,000 ML 1000 ML IV (15:12)
--- NOTE | 2024-12-11 15:19 | ED.ABDPAIN1 ---
HPI - Abdominal Pain General Chief Complaint: Abdominal Pain Stated Complaint: abdominal pain Time Seen by Provider: 12/11/24 11:33 Source: patient Mode of arrival: ambulance Limitations: no limitations History of Present Illness HPI narrative: Patient is a 39 years old female who was just discharged from [facility] after she was also admitted earlier in December 05 for hysterectomy to the same hospital the patient after 2 days she was readmitted for urine retention The patient was discharged on December 09 which was 2 days ago she mentioned that since yesterday she started having some lower abdominal pain As per the patient she also started having left sided chest and shoulder pain since this morning it was severe and she called the EMS she already was provided with fentanyl before arrival Patient also had some low-grade fever chills and no nausea no vomiting but she mentioned that she has been having severe lower abdominal pain that is not crampy-like but continuous and she mentioned it is not like her bladder spasm that she used to have when she had the catheter placed the first day Related Data Home Medications ?Medication ?Instructions ?Recorded ?Confirmed estradiol 0.1 mg/24 hr semiweekly 1 patch topical .every other week 12/07/24 12/11/24 transdermal patch montelukast 10 mg tablet 10 mg PO DAILY 12/07/24 12/11/24 omeprazole 20 mg capsule,delayed 20 mg PO DAILY 12/07/24 12/11/24 release oxycodone 5 mg tablet 5 mg PO Q8H PRN pain 12/07/24 12/11/24 sertraline 50 mg tablet 50 mg PO Q24H 12/07/24 12/11/24 bupropion HCl 300 mg 24 hr tablet, mg PO 12/11/24 extended release norgestimate-ethinyl estradiol tab 12/11/24 0.18mg/0.215mg/0.25mg-0.035mg()tablet Allergies Allergy/AdvReac Type Severity Reaction Status Date / Time No Known Drug Allergies Allergy Verified 12/11/24 11:02 Review of Systems ROS Status of ROS 10 or more systems reviewed and unremarkable except as noted in history and below PFSH [facility] Medical History (Updated 12/11/24 @ 18:37 by Gina Bentley MD) Depression ?F32.A - Depression, unspecified (ICD-10) Surgical History (Updated 10/24/25 @ 14:17 by Shane Acharya, ) H/O bilateral mastectomy ?Z90.13 - Acquired absence of bilateral breasts and nipples (ICD-10) H/O: hysterectomy ?Z90.710 - Acquired absence of both cervix and uterus (ICD-10) Social History (Updated 12/07/24 @ 11:47 by Kym Encarnacion RN) Within the past year, how often did you have a drink containing alcohol: never Score interpretation: A score less than 3 is consistent with normal alcohol consumption. Smoking status: Never smoker Non-prescribed substance use: denies use Little interest or pleasure in doing things: not at all Feeling down, depressed, or hopeless: not at all Exam Narrative Exam Narrative: Nurses notes and vital signs reviewed and patient is not hypoxic. General: Well-appearing and in no apparent distress. Skin: Warm, dry, no pallor noted. No rash. Head: Normocephalic, atraumatic. Neck: Supple, non-tender. Eye: Pupils are equal, round and EOMI. No scleral icterus. Ears, Nose, Mouth, and Throat: TM are clear, no nasal mucosal hypertrophy. Oral mucosa is moist, no posterior oropharynx erythema, uvula is mid-line Cardiovascular: Regular Rate and Rhythm without murmur, gallop or rub. Respiratory: No accessory muscle use or respiratory distress. Lungs are clear to auscultation, no wheezing, rales or rhonchi Chest Wall: no tenderness Back: No midline thoracic or lumbar vertebral tenderness. No CVA tenderness Musculoskeletal: normal ROM, no calf or popliteal tenderness, no lower extremity edema/swelling GI: Abdomen is soft, distended there is scars of laparoscopic surgery that is adequately healing all over the abdomen And the patient have tenderness upon palpation of the lower abdomen no guarding Neurological: A&O x4. No cranial nerve dysfunction observed. No truncal ataxia. Constitutional Vital Signs, click to edit/add: Last Vital Signs Temp 100.6 F H 12/11/24 15:37 Pulse 84 12/11/24 10:55 Resp 14 12/11/24 10:55 BP 133/77 12/11/24 17:30 Pulse Ox 100 12/11/24 17:40 O2 Del Method Room Air 12/11/24 10:55 Course Vital Signs Vital signs: Vital Signs Temperature 99.8 F 12/11/24 10:55 Pulse Rate 84 12/11/24 10:55 Respiratory Rate 14 12/11/24 10:55 Blood Pressure 127/69 12/11/24 10:55 Pulse Oximetry 99 12/11/24 10:55 Oxygen Delivery Method Room Air 12/11/24 10:55 Temperature 100.6 F H 12/11/24 15:37 Pulse Rate 84 12/11/24 10:55 Respiratory Rate 14 12/11/24 10:55 Blood Pressure 133/77 12/11/24 17:30 Pulse Oximetry 100 12/11/24 17:40 Oxygen Delivery Method Room Air 12/11/24 10:55 MDM - Abdominal Pain MDM Narrative Medical decision making narrative: folley catheter upon arrival showed that the patient have almost 800 cc of urine after draining that the patient had 100 cc in my evaluation it was clear urine CBC shows leukocytosis 16 and the chemistry showing no acute significant pathology lactic acid is not elevated It was noted that the patient have low-grade fever 100.8 The patient D-dimer was elevated presentation of left-sided shoulder pain and history of recent surgery the patient had the PE ruled out with CT angio of the chest CT abdomen with contrast showed that the patient have possibly the bladder perforated with a catheter balloon outside of the bladder The patient was covered after blood culture with Vanco and Zosyn An ultrasound confirmed that the patient have possibly also the balloon outside the bladder The patient according to her history she had her Cabrera catheter last time replaced on Tuesday after she had a trial to urinate and she ended up retaining 1200 cc of urine The patient mentioned that since then the patient catheter has been positional as it drained more whenever she is standing up Right now the patient is having her pain controlled almost every 2 hours with fentanyl 50 mcg Patient initially had a bolus of normal saline 1 L and then she had 120 cc/h Patient was accepted by in [facility] Lab Data Labs: Lab Results 12/11/24 12/11/24 Range/Units 11:43 14:42 WBC 16.4 H (4.0-11.0) 10^3/uL RBC 3.84 L (4.20-5.40) 10^6/uL Hgb 11.4 L (12.0-16.0) g/dL Hct 35.8 L (36.0-48.0) % MCV 93.2 (81.0-99.0) fL MCH 29.7 (26.7-34.0) pg MCHC 31.8 (29.9-35.2) g/dL RDW 13.3 (11.0-15.0) % Plt Count 304 (150-450) 10^3/uL MPV 10.3 (9.5-13.5) fL Neut % (Auto) 83.4 H (43.0-75.0) % Lymph % (Auto) 8.4 L (20.5-60.0) % [place] % (Auto) 6.7 (1.7-12.0) % Eos % (Auto) 0.8 L (0.9-7.0) % Baso % (Auto) 0.3 (0.2-2.0) % Neut # (Auto) 13.7 H (1.4-6.5) 10^3/uL Lymph # (Auto) 1.4 (1.2-3.8) 10^3/uL [place] # (Auto) 1.1 H (0.3-0.8) 10^3/uL Eos # (Auto) 0.1 (0.0-0.7) 10^3/uL Baso # (Auto) 0.1 (0.0-0.1) 10^3/uL Abs Immat Gran (auto) 0.06 H (0.00-0.03) 10^3/uL Imm/Tot Granulo (auto) 0.4 (0.0-0.5) % D-Dimer 3.91 H* (<=0.59) mg/L FEU Sodium 141 (136-145) mmol/L Potassium 3.6 (3.5-5.1) mmol/L Chloride 106 (98-107) mmol/L Carbon Dioxide 25.6 (21.0-32.0) mmol/L Anion Gap 13.0 BUN 11.0 (7.0-18.0) mg/dL Creatinine 0.79 (0.55-1.02) mg/dL Est GFR ( Amer) >60 (>=60 mL/min/1.73m^2) Est GFR (Non-Af Amer) >60 (>=60 mL/min/1.73m^2) BUN/Creatinine Ratio 13.9 Glucose 96 (74-106) mg/dL Lactate 0.7 0.4 (0.4-2.0) mmol/L Calcium 8.4 L (8.5-10.1) mg/dL Total Bilirubin 0.5 (0.2-1.0) mg/dL AST 30 (15-37) U/L ALT 26 (14-59) U/L Alkaline Phosphatase 48 (46-116) U/L Troponin I High Sens 4.1 (4.0-51.3) pg/mL Total Protein 6.6 (6.4-8.2) g/dL Albumin 2.9 L (3.4-5.0) g/dL Globulin 3.7 g/dL Albumin/Globulin Ratio 0.8 Serum HCG, Qual Negative (NEGATIVE) Discharge Plan Discharge Chief Complaint: Abdominal Pain Clinical Impression: Perforation of bladder Patient Disposition: [facility] Time of Disposition Decision: 18:37 Discharge location: [facility]
[2024-12-11] MEDS: PIPERACILLIN SODIUM/TAZOBACTAM 4.5 GM in 0.9 % SODIUM CHLORIDE 50 ML IV (15:27)
[2024-12-11] MEDS: VANCOMYCIN HCL 1,500 MG in 0.9 % SODIUM CHLORIDE 500 ML 250 MG IV (16:28)
[2024-12-11] MEDS: HYDROMORPHONE HCL 0.5 MG/0.5 ML SYRINGE IV ×3 (17:51→21:01)
[2024-12-11] MEDS: 0.9 % SODIUM CHLORIDE 1,000 ML 120 ML IV (17:58)
[2024-12-11 18:26] LABS: Glucose Urine UA NEGATIVE (NEGATIVE)
[2024-12-11 18:44] LABS: Urine Culture Indicated YES-FRMC
[2024-12-11 18:57] LABS: Cast Seen? NONE SEEN #/LPF (NONE SEEN); Crystals Seen? None Seen #/HPF (None Seen)
--- NOTE | 2024-12-11 19:13 | PC.NURSE ---
19:05- Patient report given to CRYSTAL Ornelas
--- NOTE | 2024-12-11 20:05 | PC.NURSE ---
this patient's pain down to 05/24 now [facility] nurse Jamia called and i gave her a patient report
--- NOTE | 2024-12-11 20:41 | PC.NURSE ---
superior ems here and i gave patient report to ems crew
== END 2024-12-11 21:10 | disposition short-term general hospital (02) ==
PROVIDERS: Emergency Provider Emergency Medicine
DX: N32.89 Other specified disorders of bladder (principal); Z90.710 Acquired absence of both cervix and uterus; R50.9 Fever, unspecified; R79.89 Other specified abnormal findings of blood chemistry
CPT/HCPCS: 36415; 71275; 74177; 76857; 80053; 81001; 83605; 84484; 84703; 85025; 85378; 87040; 87086; 93005; 96365; 96366; 96367; 96375; 96376; 99285; J1171; J2405; J2543; J3010; J3373; Q9967